=== PATIENT | female | born 1985 | race Asian ===

== ENCOUNTER 2022-09-18 13:53 | Outpatient (CLI) | payer OTHER, SELFPAY ==
--- NOTE | 2022-09-18 14:00 | CRLHL7_ITS ---
For Patients: As a result of the Century Cures Act, medical imaging exams and procedure reports are released immediately into your electronic medical record. You may view this report before your referring provider. If you have questions, please contact your health care provider. INDICATION: Dating and viability.. TECHNIQUE: Ultrasound OB pelvis transvaginal. Real-time antonio-scale imaging of the pelvis was performed. COMPARISON: None. FINDINGS: There is a single intrauterine gestational sac is identified, measuring approximately 1.7 centimeters in mean sac diameter, correlating to 6 weeks 3 days gestational age. pole is identified. The embryo`s crown rump length measurement of 0.78 cm corresponds to a gestational age of 6 weeks 5 days with a sonographic due date of 05/09/2023. There is a normal appearing yolk sac. There are no gross abnormalities noted within the embryo at this early state of development. The placenta has not yet developed. There are 2 areas of subchorionic hemorrhage identified, on the right measuring approximately 1.4 x 1.6 x 1.6 centimeters, and on the left measuring 1.7 x 1.7 x 2.3 centimeters. The ovaries are not visualized. There are no suspicious fluid collections noted in the cul-de-sac. IMPRESSION: Single viable intrauterine measuring approximately 6 weeks 5 days by crown-rump length.. No heart rate is identified, and may be related to early gestation. Recommend serial beta HCG and short interval repeat ultrasound. Dictated by Odilia Romano MD @ 09/18/2022 3:15:04 PM (Electronically Signed) ----- ADDENDUM ----- Secondary review after comparison available from September 04, 2022. On the prior examination, a gestational sac was identified with a yolk sac. This was present precisely 14 days ago. Per SRU guidelines, absence of embryonic heartbeat at greater than 11 days after a scan that showed a gestational sac with a yolk sac is diagnostic of failure. In addition, the CRL is measuring at 7mm which would also meet diagnostic criteria per guidelines. Given the subjective manner of ultrasound scanning, it was discussed with Dr. Nevaeh Mitchell that this does indeed meet guidelines for failure, but it would not be unreasonable to consider a repeat ultrasound if there is any clinical doubt. Dictated by Odilia Romano MD @ Sep 18 2022 4:03PM Signed by:?Odilia Romano MD @09/18/2022 3:15:04 PM (Electronic Signature)
== END 2022-09-18 13:54 | disposition home or self-care (01) ==
LOC: US 13:56
PROVIDERS: PCP Family Medicine; Visit Provider Physician Assistant
DX: O09.521 Supervision of elderly multigravida, first trimester (principal); Z3A.01 Less than 8 weeks gestation of pregnancy
CPT/HCPCS: 76817

== ENCOUNTER 2022-09-24 12:03 | Day surgery (SDC) | payer OTHER, SELFPAY ==
--- NOTE | 2022-09-24 12:33 | SUR.PREOP ---
Patient verbalizes understanding that interpreters are available. Patient declines certified court interpreter. States she is comfortable with Greek.
[2022-09-24 12:41] VITALS: BP 91/59; PULSE 61; RESP 16; TEMP 36.9; O2SAT 98; BMI 24.4
[2022-09-24] MEDS: SODIUM CHLORIDE 0.9 % (FLUSH) 10 ML SYRINGE IVF (12:47)
[2022-09-24] MEDS: LACTATED RINGERS 1000 ML 1,000 ML 100 ML IV (12:47)
[2022-09-24] MEDS: DOXYCYCLINE HYCLATE 200 MG in 0.9 % SODIUM CHLORIDE Mini-bag 100 ML 100 MG IVPB (12:47)
[2022-09-24 12:52] LABS: Hemoglobin* 11.8 gm/dL (12.0-16.0)
--- NOTE | 2022-09-24 13:40 | SUR.OPER ---
PATIENT QUESTIONS ANSWERED SATISFACTORILY PREOPERATIVELY. PATIENT BROUGHT TO OR #4 PER CART. Patient positioned supine on OR #4 bed for the induction. Pt. then moved into the lithotomy position for the procedure. Final approval of positioning by surgeon. STRAIGHT CATH BY Genna MONTALVO MD AT 13:29.
--- NOTE | 2022-09-24 13:48 | PM.GYNPRPL ---
Procedure Pre-op/Post-op diagnoses: Pre-Op/Post-Op Diagnoses Operation Date: 09/24/22 13:15 <No data on this case meets the specified criteria> Procedure: Procedures Operation Date: 09/24/22 13:15 Actual Procedure Side Surgeon p Suction Dilatation & Curettage Lana Lemon MD Estimated blood loss (mL): 10 Anesthesia type: MAC Complications: none Specimen: uterine contents Disposition: same day Narrative: DILATION AND CURRETAGE PREOPERATIVE DIAGNOSIS: 1. Spontaneous missed POSTOPERATIVE DIAGNOSIS: Same PROCEDURE: 1. EUA 2. Suction dilation and curettage SURGEON: Lana Lemon MD SCHOOL PROGRAM DIRECTOR: None ANESTHESIA: Monitored anesthesia care and local FINDINGS: 1. A 6 week size mobile anteverted, uterus, no adnexal masses on EUA 2. Normal external genitalia, normal appearing cervix ESTIMATED BLOOD LOSS: 10 cc URINE OUTPUT: 30 cc COMPLICATIONS: None SPECIMEN: 1. Products of conception INDICATIONS: Lie is a [age] yo , with diagnosis of missed on TVUS on 09/18/2022 IUP wtih CRL of 0.78 cm corresponding with 6w5d without heart beat. DESCRIPTION OF PROCEDURE: The patient was taken to the operating room where general anesthesia was administered. She was prepared and draped in normal sterile fashion in the dorsal lithotomy position in yellow fin/candy cane stirrups, taking care to avoid lower extremity hyperextension, hyperflexion or compression. A surgical time-out was performed with the entire operative staff per protocol. Perioperative antibiotics were given and Pneumoboots were placed and activated. EUA revealed the above findings. Bladder was drained with a red rubber. A speculum was placed in the patient's vagina and a single-tooth tenaculum was placed on the anterior lip of the cervix. The cervix was gently dilated to a 7 Urdu diameter to accommodate the 7 suction curettage. The suction curettage was then inserted under direct visualization. The uterus was then gently suction curetted and rotated to clear the uterus of products of conception. This was performed until a gritty texture was noted and the uterus was cleared of all remaining products of conception. There was minimal bleeding noted after the suction curettage was removed. The tenaculum was removed from the anterior lip of the cervix and excellent hemostasis was noted. All instruments were removed. Specimen was sent to pathology. The patient tolerated the procedure well. Sponge, lap and needle counts were correct x 2. The patient was taken to the recovery room in stable condition.
[2022-09-24 13:51] VITALS: BP 97/65; PULSE 72; RESP 14; TEMP 36.2; O2SAT 97
--- NOTE | 2022-09-24 13:54 | W.ANESCHARGE ---
Anesthesia Charges Start Date/Time Anesthesia Start Date: 09/24/22 Anesthesia Start Time: 13:09 Stop Date/Time Anesthesia Stop Date: 09/24/22 Anesthesia Stop Time: 13:55
--- NOTE | 2022-09-24 13:55 | W.ANESCHARGE ---
Anesthesia Charges Start Date/Time Anesthesia Start Date: 09/24/22 Anesthesia Start Time: 13:09 Stop Date/Time Anesthesia Stop Date: 09/24/22 Anesthesia Stop Time: 13:55
[2022-09-24 14:00] VITALS: BP 87/55; PULSE 65; RESP 14; O2SAT 99
[2022-09-24 14:15] VITALS: BP 86/64; PULSE 67; RESP 16; O2SAT 99
[2022-09-24 14:30] VITALS: BP 98/67; PULSE 65; RESP 16; O2SAT 100
== END 2022-09-24 14:57 | disposition home or self-care (01) ==
PROVIDERS: PCP Family Medicine; Visit Provider Obstetrics & Gynecology
PROC: (CPT 59820; principal; 2022-09-24 13:15)
DX: O02.1 Missed abortion (principal)
CPT/HCPCS: 59820; 00940; 01965; 36415; 85018; 86850; 86900; 86901; 88305; J1100; J1885; J2250; J2405; J2704; J3010; J7120

== ENCOUNTER 2023-02-16 10:41 | Outpatient (CLI) | payer OTHER, SELFPAY | END 2023-02-16 10:42 | disposition home or self-care (01) | LOC: NFLDREF 10:42 | PROVIDERS: PCP Family Medicine; Visit Provider Physician Assistant | DX: Z32.00 Encounter for pregnancy test, result unknown (principal) | CPT/HCPCS: 81229; 84702 ==

== ENCOUNTER 2023-02-18 14:52 | Outpatient (CLI) | payer OTHER, SELFPAY | END 2023-02-18 14:53 | disposition home or self-care (01) | LOC: NFLDREF 02-23 10:12 | PROVIDERS: PCP Family Medicine; Referring Provider Family Medicine; Visit Provider Obstetrics & Gynecology | DX: O20.9 Hemorrhage in early pregnancy, unspecified (principal) | CPT/HCPCS: 84702 ==

== ENCOUNTER 2023-03-03 13:28 | Outpatient (CLI) | payer OTHER, SELFPAY | END 2023-03-03 13:29 | disposition home or self-care (01) | PROVIDERS: PCP Family Medicine; Visit Provider Obstetrics & Gynecology | DX: N96 Recurrent pregnancy loss (principal) | CPT/HCPCS: 82232; 84146; 84443; 85610; 85613; 85730; 86147; 88262 ==

== ENCOUNTER 2023-03-30 14:54 | Outpatient (CLI) | payer OTHER, SELFPAY | END 2023-03-30 14:55 | disposition home or self-care (01) | LOC: NFLDREF 04-02 12:23 | PROVIDERS: PCP Family Medicine; Referring Provider Family Medicine; Visit Provider Obstetrics & Gynecology | DX: N96 Recurrent pregnancy loss (principal) | CPT/HCPCS: 82670; 83001; 83520 ==

== ENCOUNTER 2023-08-20 07:14 | Outpatient (CLI) | payer OTHER, SELFPAY ==
--- NOTE | 2023-08-20 07:15 | US_ITS ---
Patient: CHERYL PARDO Facility:?[facility] Patient ID:?[id number] Site Patient ID:?[id number]. Site :?[id number] Study:?US-OB Pelvis TV OB<14wks-08/20/2023 8:26:59 AM Ordering Physician:?Nitza Gale Final Report: INDICATION: Check viability and dates. IVF. TECHNIQUE: Transvaginal scanning was performed to optimally evaluate the IUP and adnexa. Ovarian blood flow was evaluated with color-flow doppler. COMPARISON: None FINDINGS: There is a living IUP with gestational age of 11 weeks 2 days by IVF and 11 weeks 4 days by today`s crown-rump length. EDC based on IVF is 03/08/2024. The embryonic heart rate is measured at 149 beats per minute. The placenta is not yet formed. No subchorionic hemorrhage is evident. The ovaries are normal in size and shape. The right ovary measures 2.6 x 1.5 x 1.3 cm and the left 3.5 x 3.4 x 2.5 cm. Ovarian blood flow is demonstrated with color-flow doppler. No adnexal mass or free fluid is apparent. IMPRESSION: 1. Living IUP with gestational age of 11 weeks 2 days by IVF and 11 weeks 4 days by today`s crown-rump length. EDC based on IVF is 03/08/2024. 2. No complication evident. Dictated by Benjamin Hartman MD @ 08/22/2023 8:03:31 AM Signed by:?Benjamin Hartman MD @08/22/2023 8:03:31 AM (Electronic Signature)
== END 2023-08-20 07:15 | disposition home or self-care (01) ==
LOC: US 07:15
PROVIDERS: PCP Family Medicine; Visit Provider Registered Nurse
DX: O09.811 Supervision of pregnancy resulting from assisted reproductive technology, first trimester (principal); Z3A.11 11 weeks gestation of pregnancy
CPT/HCPCS: 76817

== ENCOUNTER 2023-08-20 10:57 | Outpatient (CLI) | payer OTHER, SELFPAY | END 2023-08-20 10:58 | disposition home or self-care (01) | LOC: NFLDREF 08-23 05:11 | PROVIDERS: PCP Family Medicine; Referring Provider Family Medicine; Visit Provider Registered Nurse | DX: Z34.91 Encounter for supervision of normal pregnancy, unspecified, first trimester (principal); R73.03 Prediabetes | CPT/HCPCS: 86592; 86703; 86704; 86706; 86762; 86787; 86803; 86850; 86900; 86901; 87086; 87340; 87491; 87591 ==

== ENCOUNTER 2023-12-13 09:23 | Outpatient (CLI) | payer OTHER, SELFPAY ==
--- OUTSIDE RECORDS SUMMARY | 2023-12-14 18:38 | XMS_ITS | Clinical Summary ---
Author Organization [facility] Address [place], [place] [address] Care Team Providers Care Data Librarian Name Role Phone Lauren Cnode Unavailable Mervat Anthony DO Primary Care Provider [phone] Allergies No known active allergies Medications No known medications Active Problems Problem Noted Date Diagnosed Date Tuberculosis 09/04/2022 Overview: Latent Tuberculosis 09/04/2022 Overview: Latent 09/04/2022 Overview: Estimated Date of Delivery: 04/24/23 Patient's last menstrual period was 07/18/2022 (exact date). GBS- Last Tdap- 2018 Last Flu vaccine- 04/07 Glucose (GTT) result- OB Labs Recent Labs 09/04/22 1125 HGB 13.0 ABORH O Rh Positive RCBANTIBODY Negative TREPONEPALLI Negative RUBELLAIGG 17.40 Positive HBSAG Negative HEPCABY Non Reactive Comment [id number] Non Reactive No Known Allergies OB History Para Term AB Living 1 0 0 0 0 0 SAB IAB Ectopic Multiple Live Births 0 0 0 0 0 # Outcome Date GA Lbr Ezio/2nd Weight Sex Delivery Anes PTL Lv 1 Current Past Medical History: . Date ? ? History of BCG vaccination ? ? No Significant Past Medical History ? ? Tuberculosis Latent ? ? Varicella In childhood Past Surgical History: . Laterality Date ? ? NO PAST SURGERIES No data on file. #1 Problems (from 09/04/22 to present) No problems associated with this episode. MAURICIO FELDER RN ....09/04/2022 11:10 AM TB lung, latent 06/04/2022 Overview: See 03/2021 medical message - patient reports CXR normal. Has not had treatment Positive QuantiFERON-TB Gold test 03/31/2021 Overview: See 06/2020 telephone call Immunizations Name Administration Dates Next Due COVID-19 vaccine (Moderna 10 0mcg/0.5mL) PF, MDV 06/12/2021,09/19/2020,08/22/2020 COVID-19 vaccine (Moderna 50 mcg/0.5mL) 12YO+ BIVALENT PF, MDV 03/17/2022 Influenza, IIV4 02/06/2021,02/14/2019,01/14/2018 Influenza, IIV4 (=>6mos) MDV 02/07/2020,03/13/20 19 Influenza, Injectable, Mdck, Quadrivalent, W/preservative 03/24/2022,02/06/2021 Tdap 03/22/2019 Family History Medical History Relation Name Comments No Known Problems Father No Known Problems Mother Relation Name Status Comments Father Mother Social History Tobacco Use Types Packs/Day Years Used Date Smoking Tobacco: Never Smokeless Tobacco: Never Tobacco Cessation:Counseling Given: Yes Alcohol Use Standard Drinks/Week Comments No 0 (1 standard drink = 0.6 oz pur e alcohol) PHQ-2 Answer Date Recorded PHQ-2 TOTAL SCORE 0 06/04/2022 Social Connections Answer Date Recorded Frequency of Communication with Friends and Fami ly Not on file 2021 Financial Resource Strain Answer Date R ecorded Difficulty of Paying Living Expenses Not on file 2021 Difficulty of Paying Living Expenses Not on file 2021 Sex and Gender Information Value Date Recorded Sex Assigned at Not on file Gender Identity Not on file Sexual Orientation Not on file Obstetrics History Para Term AB IAB SAB Ectopic Multiple Livin g Live Births 1 Date Outcome GA Total Labor Labor/2nd/3rd Weight Sex Type Anes PTL Asha A1 A5 Name Clin Last Filed Vital Signs Vital Sign Reading Time Taken Comments Blood Pressure 93/67 08/19/2022 11:16 AM CDT Pulse 61 08/19/2022 11:16 AM CDT Temperature 36.8 ??C (98.3 ??F) 05/25/2017 9:31 AM CS T Respiratory Rate - - Oxygen Saturation 100% 08/19/2022 11:16 AM CDT Inhaled Oxygen Concentration - - Weight 55.9 kg (123 lb 4.8 oz) 09/04/2022 10:04 AM CDT Height 155 cm (5' 1.02) 09/04/2022 10:04 AM CDT Body Mass Index 23.28 09/04/2022 10:04 AM CDT Plan of Treatment Health Maintenance Due Date Last Done Comments COVID-19 vaccine series ( season) 2023 03/17/2022, 06/12/2021, 09/19/2020, Additional history exists Depression screening for age 12+ 06/05/2023 06/05/2022, 06/04/2022, 03/19/2021, Additional history exists BMI (ht and wt on same day) for age 18+ 09/05/2023 09/04/2022, 06/04/2022, 03/19/2021, Additional history exists Influenza for age 9-49 01/16/2024 2, 02/06/2021, 02/06/2021, Additional history exists Pap test for age 21-65 03/19/2026 , 03/19/2021, 01/14/2018 Tetanus booster 03/22/2029 03/22/2019 Tdap Completed 03/22/2019 HIV for age 15-65 Completed 09/04/2022, 06/05/2022 Hepatitis C screening for age 18-79 Completed 09/04/2022, 06/05/2022 Pneumococcal series for age 6-64 Aged Out No longer eligible based on patient's age to complete this topic Procedures Procedure Name Priority Date/Time Associated Diagnosis Comments LC HIV-1/O/2, 4TH GENERATION Routine 09/04/2022 11:25 AM CDT Encounter for supervision of normal first in first trimester LC HCV ANTIBODY RFX TO QUANT PCR Routine 09/04/2022 11:25 AM CDT Encounter for supervision of normal first in first trimester HPV THIN PREP Routine 03/19/2021 4:20 PM CDT Screening for cervical cancer from Last 3 Months or Most Recently Relevant to Health Maintenance Results * LC HCV ANTIBODY RFX TO QUANT PCR (09/04/2022 11:25 AM CDT) HCV Ab Non Reactive Non Reactive 09/08/2022 5:12 AM CDT [facility] ([facility]) Blood BLOOD SPECIMEN / Unknown Venipuncture / Unknown 09/04/2022 11:25 AM CDT 09/04/2022 11:27 AM CDT [facility] TEST[facility] ([facility]) - 09/08/2022 5:12 AM CDT Performed at: ??[address] [facility] [employer] [place], [place] ??[id number] Recycler: David Dumont MD, Phone: ??[phone] Karol Arellano MD LABORATORY [facility] ([facility]) [address] [place] [address], * LC HIV-1/O/2, 4TH GENERATION (09/04/2022 11:25 AM CDT) Pathologist [facility] HIV Scr 4th Gen Non Reactive Non Reactive 09/08/2022 6:[address] [facility] ([facility]) Comment: HIV Negative HIV-1/HIV-2 antibodies and HIV-1 p24 antigen were NOT detected. There is no laboratory evidence of HIV infection. Blood BLOOD SPECIMEN / Unknown Venipuncture / Unknown 09/04/2022 11:25 AM CDT 09/04/2022 11:27 AM CDT [facility] TEST[facility] ([facility]) - 09/08/2022 6:09 AM CDT Performed at: ??[address] [facility] [place] [address] [place], [place] ??[id number] Recycler: David Dumont MD, Phone: ??[phone] Karol Arellano MD LABORATORY [facility] ([facility]) [address] [place] [address] * HPV HIGH RISK (03/19/2021 4:20 PM CDT) TYPE 16 Negative Negative 03/25/2021 6:14 AM RADIUS CORNER MACHINE OPERATOR [facility] TR[facility] LABORATORY TYPE 18 Negative Negative 03/25/2021 6:14 AM RADIUS CORNER MACHINE OPERATOR [facility] TR[facility] LABOR[facility] OTHER HIGH RISK TYPES Negative Negative 03/25/2021 6:14 AM RADIUS CORNER MACHINE OPERATOR [facility] TR[facility] LABOR[facility] Other (Cervical) Non-Blood / Unknown 03/19/2021 4:20 PM CDT 03/21/2021 11:42 AM CDT Narrative [facility] - 03/25/2021 6:14 AM RADIUS CORNER MACHINE OPERATOR HPV types 16, 18, 31, 33, 35, 39, 45, 51, 52, 56, 58, 59, 66 and 68 DNA were undetectable or below the pre-set threshold. Methodology: Shahrzad Soila 4800 HPV Test Tawanna Bates MD MICROBIOLOGY [facility] [address] [place] [address], [place] from Last 3 Months or Most Recently Relevant to Health Maintenance Care Teams Data Librarian Relationship Specialty Start Date End [place] [address] PCP - General Family Practice 02/24/23 Lauren Conde [address] [place] [id number] 09/16/22
--- OUTSIDE RECORDS SUMMARY | 2023-12-14 18:38 | XMS_ITS | Clinical Summary ---
Author Organization [facility] Address [address] [place] [address] Care Team Providers Care Graduate Teaching Associate Name Role Phone None Reported, Pcp Primary Care Provider Unavail able Source Comments Patient records contain information from all sites at [facility]. For routine questions regarding patient records, call [phone] during business hours, M-F 8:00 AM - 5:00 PM Central Time. Record requests for emergency care only can be directed to [phone] at any time.[facility] Allergies Active Allergy Reactions Criticality Noted Date Comments Pollen Extracts Cough 02/19/2023 Medications Medication Sig Dispensed Refills Start Date End Date Status vit calc,iron,folic (PRENAT.VITS,DONNIE,MIN-I LAURYN-FOLIC ORAL) Take 1 tablet by mouth. 09/18/2022 Active cholecalciferol, vitamin D3, (VITAMIN D3 ORAL) Take by mouth. Active aspirin 81 mg chewable tablet Chew 81 mg daily. 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 Has not had treatment Estimated Date of Delivery Comme nts Yes 03/08/2024 Based on Embryo Transfer Encounters Date Type Department Care Team Description 11/16/2023 2:30 PM CDT Comprehensive Visit Division of Pediatric Cardiology in [place], [place] [address] [place] [address] Favian Hutton Jr., M.D. Encounter For Supervision Of Normal Unspecified Trimester (HCC) 11/16/2023 12:59 PM CDT - 11/16/2023 11:59 PM CDT Hospital Encounter Department of Cardiovascular Diseases in [place], [place] [address] [place] [phone] Ariel Jackman M.D. Encounter For Supervision Of Normal Unspecified Trimester (HCC) Discharge Disposition: Home or Self Care 10/15/2023 2:00 PM CDT Routine Department of Obstetrics and Gynecology in [place], [place] [address] [place] [phone] Ariel Jackman M.D. Encounter For Supervision Of Normal Unspecified Trimester (HCC) (Primary Dx) 10/15/2023 12:31 PM CDT - 10/15/2023 11:59 PM CDT Hospital Encounter Department of Obstetrics and Gynecology in [place], [place] [address] [place] [phone] Jag Lamb M.B.B.S. Multigravida Advanced Maternal Age Affecting Management (HCC) Discharge Disposition: Home or Self Care 09/22/2023 2:30 PM CDT Nurse Only Department of Obstetrics and Gynecology in [place], [place] [address] [place] [phone] Nelly Bourgeois R.N. 09/21/2023 Clinical Communication Department of Obstetrics and Gynecology in [place], [place] [address] [place] [phone] Prescheduling, Provider MFM Triage from Last 3 Months Family History Medical History Relation Name Comments No Known Problems Father No Known Problems Mother Relation Name Status Comments Father Alive Maternal Grandfather Maternal Grandmother Mother Alive Paternal Grandfather Paternal Grandmother Social History Tobacco Use Types Packs/Day Years Used Date Smoking Tobacco: Never Smokeless Tobacco: Never Tobacco Cessation:Counseling Given: Not Answered Alcohol Use Standard Drinks/Week Comments Not Currently 0 (1 standard drink = 0.6 oz pur e alcohol) Overall Financial Resource Strain (CARDIA) Answe r Date Recorded How hard is it for you to pa y for the very basics like food, housing, medical care, and heating? Not very hard 02/17/2023 PHQ-2 Answer Date Recorded PHQ-2 Score 1 02/17/2023 Exercise Vital Sign Answer Date Recorde d On average, how many days pe r week do you engage in moderate to strenuous exercise (like a brisk walk)? 7 days 02/17/2023 On average, how many minutes do you engage in exercise at this level? 30 min 02/17/2023 Hunger Vital Sign Answer Date Recorded Within the past 12 months, y ou worried that your food would run out before you got the money to buy more. Never true 02/18/20 Within the past 12 months, t he food you bought just didn't last and you didn't have money to get more. Never true 02/17/2023 PRAPARE - Transportation Answer Date Re corded In the past 12 months, has l ack of transportation kept you from medical appointments or from getting medications? Yes 08/2022 In the past 12 months, has l ack of transportation kept you from meetings, work, or from getting things needed for daily living? Yes 02/17/2023 Depression Answer Date Recor ded PHQ-9 Total Score (max 27) 4 02/17 Nutrition Answer Date Recorded On average, how many serving s of fruits and vegetables do you eat per day (serving size is equal to 1 cup or approximately the size of a tennis ball)? 5 or more 02/17/2023 Dental Answer Date Recorded Dental: Regular Dentist No 02/18/20 Employment Answer Date Recorded Employment status Employed and actively working without restrictions 02/17/2023 Housing Stability Answer Date Recorded What is your living situation today? I have a [facility] place to live 02/17/2023 Education Answer Date Recorded What is the highest level of school you have completed or the highest degree you have received? Doctorate 09/22/2023 Estimated Date of Delivery Comme nts Yes 03/08/2024 Based on Embryo Transfer Sex and Gender Information Value Date Recorded Sex Assigned at Female 02/17/2023 4:06 PM CDT Gender Identity Female 02/17/2023 4:06 PM CDT Sexual Orientation Straight 02/17/2023 4: 06 PM CDT Last Filed Vital Signs Vital Sign Reading Time Taken Comments Blood Pressure 90/60 10/15/2023 2:43 PM CDT Pulse 75 10/15/2023 2:43 PM CDT Temperature 36.6 ??C (97.9 ??F) 06/16/2023 8:56 AM CS T Respiratory Rate 15 06/16/2023 10:22 AM HEAVY EQUIPMENT TECHNICIAN Oxygen Saturation 97% 10/15/2023 2:43 PM CDT Inhaled Oxygen Concentration - - Weight 58.2 kg (128 lb 4.9 oz) 07/08/2023 2:27 P M HEAVY EQUIPMENT TECHNICIAN Height 150 cm (4' 11.06) 07/08/2023 2:27 PM HEAVY EQUIPMENT TECHNICIAN Body Mass Index 25.87 07/08/2023 2:27 PM HEAVY EQUIPMENT TECHNICIAN Plan of Treatment Upcoming Encounters Date Type Department Care Team (Latest Contact Info) Description 12/24/2023 11:15 AM CDT Appointment Department of Obstetrics and Gynecology in [place], [place] [address] [place] [phone] Ariel Jackman M.D. [address] [place] [phone] Discharge Disposition: Home or Self Care 12/24/2023 1:00 PM CDT Routine Department of Obstetrics and Gynecology in [place], [place] [address] [place] [phone] Tiarra Panda M.D., Ph.D. [address] [place] [phone] Health Maintenance Due Date Last Done Comments Cervical Cancer Screening 1985 HIV Screening 1985 Hepatitis B Vaccines (1 of 3 - 19+ 3-dose series) 2004 Depression Screening (Annual PHQ-2) 05/17/2023 RSV vaccine - (32-36 weeks) or 60+ years (1 - Risk 1-dose series) 01/16/2024 Influenza Vaccine (#1) 2024 , 03/24/2022, 02/06/2021, Additional history exists Lipid (Cholesterol) Screening 06/05/2027 06/05/2022, 03/19/2021 DTaP,Tdap,and Td Vaccines (2 - Td or Tdap) 03/22/2029 03/22/2019 Hepatitis C Screening Completed 09/04/2022 COVID-19 Vaccine Completed 03/02/2023, 05/2021, 06/12/2021, Additional history exists HPV Vaccines Aged Out No longer eligi ble based on patient's age to complete this topic Pneumococcal vaccine (0-64 years) Aged Out No longer eligible based on patient's age to complete this topic Procedures Procedure Name Priority Date/Time Associated Diagnosis Comments OSEGUERA ECHO 2D WITH COLOR AND DOPPLER Routine 11/16/2023 2:04 PM CDT Encounter For Supervision Of Normal Unspecified Trimester (HCC) US OB ADVANCED LEVEL OSEGUERA AND TRANSVAGINAL RAD - Routine (most inpatients and all outpatients) 10/15/2023 2:46 PM CDT Multigravida Advanced Maternal Age Affecting Management (HCC) HCV AB SCRN W/REFLEX TO HCV PCR, S Routine 09/04/2022 from Last 3 Months or Most Recently Relevant to Health Maintenance Results * OSEGUERA ECHO 2D WITH COLOR AND DOPPLER (11/16/2023 2:04 PM CDT) Ejection Fraction [facility] Anatomical Region Laterality Modality Echocardiography 11/16/2023 1:12 PM CDT Impressions 11/16/2023 2:05 PM CDT lie: variable. 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 Normal great artery relationships. For the complete report, see the Order-Level Documents. Narrative 11/16/2023 2:05 PM CDT For the complete report, see the Order-Level Documents. Final Impressions 1. echocardiogram performed due to in vitro fertilization. 2. Estimated date of delivery 03/08/2024. ??Gestational age 23 weeks , 6 days. 3. Oseguera . 4. Normal cardiac anatomy. 5. Normal cardiac dimensions. 6. Normal biventricular function. 7. Normal Doppler velocities. 8. Normal aortic arch. 9. Normal ductal arch. 10. Normal patency of the foramen ovale. 11. echocardiogram reveals normal sinus rhythm at a heart rate of 158 contr/min. 12. Normal umbilical cord Doppler velocities and profile. Three vessel cord. 13. No pericardial effusion. No hydrops. Procedure Note Favian Hutton Jr., M.D. - 11/16/2023 For the complete report, see the Order-Level Documents. Final Impressions 1. echocardiogram performed due to in vitro fertilization. 2. Estimated date of delivery 03/08/2024. Gestational age 23 weeks , 6days. 3. Oseguera . 4. Normal cardiac anatomy. 5. Normal cardiac dimensions. 6. Normal biventricular function. 7. Normal Doppler velocities. 8. Normal aortic arch. 9. Normal ductal arch. 10. Normal patency of the foramen ovale. 11. echocardiogram reveals normal sinus rhythm at a heart rate of158 contr/min. 12. Normal umbilical cord Doppler velocities and profile. Three vesselcord. 13. No pericardial effusion. No hydrops. Findings lie: variable. echocardiogram reveals situs solitus of theatria and viscera with levocardia. Normal great arteryrelationships. For the complete report, see the Order-Level Documents. Ariel Jackman M.D. CV ECHO PROCEDURES * US OB Advanced Level Oseguera and Transvaginal (10/15/2023 2:46 PM CDT) Anatomical Region Laterality Modality Body, Ultrasound OB RST LOS, Ultrasound ARZ LOS N/A Ultrasound Narrative 10/15/2023 2:41 PM CDT CHERYL DAWKINS OB Exam, 10/15/2023 EXAM INFORMATION Patient Name: ??CHERYL DAWKINS : ??1985 Age: ??38 yrs Sex: ??Female Ref Phys: ??JAG LAMB Exam Date: 10/15/2023 Procedure: US OB ADVANCED LEVEL OSEGUERA AND TRANSVAGINAL Plurality: 1 OBHx: [G:(3)] ?F Trm:() Pre:() C-Sec:() Ab-I:() Ab-S:() Ect:() Multi:() Asha:() INDICATIONS FOR SONOGRAPHY Advanced Level Anatomy IMPRESSION A transabdominal detailed ultrasound examination of the fetus and transvaginal scan were ordered and performed secondary to anomaly screening, AMA. Findings: Oseguera intrauterine with good activity. Size is consistent with dates. Marginal cord insertion There are no abnormalities or sonographic soft markers of aneuploidy visualized. Normal fluid The maternal uterus and adnexae were visualized and normal. Transvaginal ultrasound performed to evaluate placentation. There is an anterior placenta previa. Recommend reassessment of placentation and growth at 28-32 weeks. MEASUREMENTS ??katie ??wks [+/-] (Range) % ?? BPD: 4.78 cm ?? 20w3d ??[+/-1.73] ??(3.80 - 4.98) 90% FL: ??3.19 cm ?? 19w6d ??[+/-1.80] ??(2.47 - 3.65) 67% HC: ??17.18 cm ?? 19w5d ??[+/-1.48] ??(14.81 - 18.73) 66% AC: ??14.33 cm ?? 19w5d ??[+/-2.06] ??(11.41 - 16.66) 59% HL: ??3.16 cm ?? 20w2d ? (2.36 - 3.36) 77% TCD: 2.03 cm ?? 20w1d ??[+/-1.80] ??(1.80 - 2.20) 67% NF: ??3.87 mm ? Cisterna Magna: 0.6 cm ? Lateral Ventricle: 0.8 cm ? RATIOS ??(Range) % ?? HC/AC: 1.20 ?(1.09 - 1.26) 61% ?? FL/BPD: 0.67 ? FL/AC: 0.22 ? LONG BONES SURVEY ??cm ??wks [+/-] (Range) % ?? Humerus: 3.16 cm ?? 20w2d ? (2.36 - 3.36) 77% Ulna: ?? 2.47 cm ? Radius: 2.44 cm ? Femur: 3.19 cm ?? 19w6d ??[+/-1.80] ??(2.47 - 3.65) 67% Tibia: 2.47 cm ? Fibula: 2.52 cm ? COMPUTATIONS GA: ?? 19w2d [+/-1.40] Method: ??HERBERTH HERBERTH: ??03/08/2024 Sono GA: ??19w5d [+/-1.40] Method: ?? BPD, HC, AC, FL Weight: ??339 gms. ??0 lb 11 oz. ??92% Method: ??BPD, HC, AC, FL OBSERVATIONS Amniotic Fluid Fluid Volume: ??Normal Placenta: ??Placenta is Anterior. ??There is a complete anterior placenta previa. Presentation: ?Variable Size: ?Large for dates Growth: ??Large for dates. FHR: ??157 bpm Sex: ??Male ANATOMY Normal: Sag and Trans Cervical spine, Sag and Trans Thoracic spine, Sag and Trans Lumbar spine, Sag and Trans Sacral spine, Cerebellum, Vermis, Cisterna magna, Cerebral ventricle, Choroid plexus, Nuchal thickness, CSP, Midline falx, Palate, Maxilla, Mandible, Tongue, 4 chamber heart, Interventricular septum, Situs, RVOT, LVOT, 3VV, 3VT, Aortic arch, Ductal arch, SVC/IVC, Pulmonary veins, Chest/Heart/lungs, Diaphragm, Anterior abdominal wall, Abdominal cord insertion, 3 vessel cord, Stomach, Kidneys (coronal and trans), Renal arteries, Bladder, Face, Upper lip/nose, Profile/Nasal Bone, Orbits/lens, Upper extremities, Lower extremities, Hands, Feet Abnormal: Placental cord insert Preliminary Read by Dixie Maxwell on 10/15/2023 2:27:48 PM. Paper Steamer: ??Dixie Maxwell Thank You For This Referral Procedure Note Dulce Cadena M.D. - 10/15/2023 CHERYL DAWKINS OB Exam, 10/15/2023 EXAM INFORMATION Patient Name: CHERYL DAWKINS : 1985 Age: 38 yrs Sex: Female Ref Phys: JAG LAMB Exam Date: 10/15/2023 Procedure: US OB ADVANCED LEVEL OSEGUERA AND TRANSVAGINAL Plurality: 1 OBHx: [G:(3)] F Trm:() Pre:() C-Sec:() Ab-I:() Ab-S:() Ect:() Multi:() Asha:() INDICATIONS FOR SONOGRAPHY Advanced Level Anatomy IMPRESSION A transabdominal detailed ultrasound examination of the fetus andtransvaginal scan were ordered and performed secondary to anomalyscreening, AMA. Findings: Oseguera intrauterine with good activity. Size is consistent with dates. Marginal cord insertion There are no abnormalities or sonographic soft markers of aneuploidyvisualized. Normal fluid The maternal uterus and adnexae were visualized and normal. Transvaginal ultrasound performed to evaluate placentation. There is ananterior placenta previa. Recommend reassessment of placentation and growth at 28-32 weeks. MEASUREMENTS katie wks [+/-] (Range) % BPD: 4.78 cm 20w3d [+/-1.73] (3.80 - 4.98) 90% FL: 3.19 cm 19w6d [+/-1.80] (2.47 - 3.65) 67% HC: 17.18 cm 19w5d [+/-1.48] (14.81 - 18.73) 66% AC: 14.33 cm 19w5d [+/-2.06] (11.41 - 16.66) 59% HL: 3.16 cm 20w2d (2.36 - 3.36) 77% TCD: 2.03 cm 20w1d [+/-1.80] (1.80 - 2.20) 67% NF: 3.87 mm Cisterna Magna: 0.6 cm Lateral Ventricle: 0.8 cm RATIOS (Range) % HC/AC: 1.20 (1.09 - 1.26) 61% FL/BPD: 0.67 FL/AC: 0.22 LONG BONES SURVEY cm wks [+/-] (Range) % Humerus: 3.16 cm 20w2d (2.36 - 3.36) 77% Ulna: 2.47 cm Radius: 2.44 cm Femur: 3.19 cm 19w6d [+/-1.80] (2.47 - 3.65) 67% Tibia: 2.47 cm Fibula: 2.52 cm COMPUTATIONS GA: 19w2d [+/-1.40] Method: HERBERTH HERBERTH: 03/08/2024 Sono GA: 19w5d [+/-1.40] Method: BPD, HC, AC, FL Weight: 339 gms. 0 lb 11 oz. 92% Method: BPD, HC, AC, FL OBSERVATIONS Amniotic Fluid Fluid Volume: Normal Placenta: Placenta is Anterior. There is a complete anterior placentaprevia. Presentation: Variable Size: Large for dates Growth: Large for dates. FHR: 157 bpm Sex: Male ANATOMY Normal: Sag and Trans Cervical spine, Sag and Trans Thoracic spine, Sagand Trans Lumbar spine, Sag and Trans Sacral spine, Cerebellum, Vermis,Cisterna magna, Cerebral ventricle, Choroid plexus, Nuchal thickness, CSP,Midline falx, Palate, Maxilla, Mandible, Tongue, 4 chamber heart, Interventricular septum, Situs, RVOT,LVOT, 3VV, 3VT, Aortic arch, Ductal arch, SVC/IVC, Pulmonary veins,Chest/Heart/lungs, Diaphragm, Anterior abdominal wall, Abdominal cordinsertion, 3 vessel cord, Stomach, Kidneys (coronal and trans), Renal arteries, Bladder, Face, Upper lip/nose,Profile/Nasal Bone, Orbits/lens, Upper extremities, Lower extremities,Hands, Feet Abnormal: Placental cord insert Preliminary Read by Dixie Maxwell on 10/15/2023 2:27:48 PM. Paper Steamer: Dixie Maxwell Thank You For This Referral Jag Velez IMG OB US PROCEDUR ES * HCV Ab Scrn w/Reflex to HCV PCR, Serum (09/04/2022) EXT HCV Ab, S Negative Negative, None detected EXTERNAL INTERFACED LAB Blood (Blood, Venous) 09/04/2022 Ordering Provider External [facility] OBIOLOGY - BLOOD ORDERABLES EXTERNAL INTERFACED LAB [address] [place] [address] from Last 3 Months or Most Recently Relevant to Health Maintenance Advance Directives For more information, please contact: [phone] * Full Code (Latest Code Status on File) Date Activated Date Inactivated Comments 06/16/2023 10:32 AM 06/16/2023 12:59 PM Question Answer Comments Full Code: Discussed * Full Code Date Activated Date Inactivated Comments 06/16/2023 8:09 AM 06/16/2023 10:32 AM Question Answer Comments Full Code: Discussed Care Teams Graduate Teaching Associate Relationship Specialty Start Date End Date None Reported, Pcp PCP - General Family Medicine 06/16/23
--- OUTSIDE RECORDS SUMMARY | 2023-12-14 18:39 | XMS_ITS | Encounter Summary ---
Author Organization [facility] Address [address] [place] [phone] Care Team Providers Care Software Design Manager Name Role Phone None Reported, Pcp Primary Care Provider Unavail able Encounter Details Date Type Department Care Team (Latest Contact Info) Description 10/15/2023 12:31 PM CDT - 10/15/2023 11:59 PM CDT Hospital Encounter Department of Obstetrics and Gynecology in [place], [place] [address] [place] [phone] Jag Lamb M.B.B.S. [address] [place] [phone] Multigravida Advanced Maternal Age Affecting Management (HCC) Discharge Disposition: Home or Self Care Social History Tobacco Use Types Packs/Day Years Used Date Smoking Tobacco: Never Smokeless Tobacco: Never Alcohol Use Standard Drinks/Week Comments Not Currently [...] the money to buy more. Never true 10/04/20 23 Within the past 12 months, t he [...] your living situation today? I have a [facility] place to live 02/17/2023 Education Answer [...] Orientation Straight 02/17/2023 4: 06 PM CDT documented as of this encounter Medications at Time of Discharge Medication Sig Dispensed Refills Start Date End Date aspirin 81 mg chewable tablet Chew 81 mg daily. 09/20/2023 cholecalciferol, vitamin D3, (VITAMIN D3 ORAL) Take by mouth. vit calc,iron,folic (PRENAT.VITS,DONNIE,MIN-IRON- FOLIC ORAL) Take 1 tablet by mouth. 09/18/2022 documented as of this encounter Plan of Treatment Upcoming Encounters Date Type Department Care Team (Latest Contact Info) Description 12/24/2023 11:15 AM CDT Appointment Department of Obstetrics and Gynecology in [place], [place] [address] [place] [phone] Ariel Jackman M.D. [address] [place] [phone] Discharge Disposition: Home or Self Care 12/24/2023 1:00 PM CDT Routine Department of Obstetrics and Gynecology in [place], [place] [address] [place] [phone] Tiarra Panda M.D., Ph.D. [address] [place] [phone] documented as of this encounter Procedures Procedure Name Priority Date/Time Associated Diagnosis Comments US OB ADVANCED LEVEL OSEGUERA AND TRANSVAGINAL RAD - Routine (most inpatients and all outpatients) 10/15/2023 2:46 PM CDT Multigravida Advanced Maternal Age Affecting Management (HCC) documented in this encounter Results * US OB Advanced Level Oseguera and Transvaginal (10/15/2023 2:46 PM CDT) Anatomical Region Laterality Modality Body, Ultrasound OB RST LOS, Ultrasound ARZ LOS N/A Ultrasound Narrative 10/15/2023 2:41 PM CDT CHERYL DAWKINS OB Exam, 10/15/2023 EXAM INFORMATION Patient Name: ??CHAR CHERYL : ??1985 Age: ??38 yrs Sex: ??Female [...] by Dixie Maxwell on 10/15/2023 2:27:48 PM. Outreach Professional: ??Dixie Maxwell Thank You For This Referral [...] by Dixie Maxwell on 10/15/2023 2:27:48 PM. Outreach Professional: Dixie Maxwell Thank You For This Referral Jag Velez IMSasha OB US PROCEDUR ES documented in this encounter Visit Diagnoses Diagnosis Multigravida Advanced Maternal Age Affecting Management (HCC) documented in this encounter Additional Health Concerns Assessment Noted Time PHQ-9 Depression Total Score: 4 02/18/20 23 4:19 PM CDT documented as of this encounter Care Teams Software Design Manager Relationship Specialty Start Date End Date None Reported, Pcp PCP - General Family Medicine 06/16/23 documented as of this encounter
--- OUTSIDE RECORDS SUMMARY | 2023-12-14 18:39 | XMS_ITS ---
Author Organization [facility] Address [address] [place] [address] Care Team Providers Care Trench Pipe Layer Helper Name Role Phone Unavailable Unavailable Unavailable Surgery Details Not on file Complications Check Surgery Details section. Procedure Estimated Blood Loss Check Surgery Details section. Procedure Findings Check Surgery Details section. Procedure Specimens Taken Check Surgery Details section.
--- OUTSIDE RECORDS SUMMARY | 2023-12-14 18:39 | XMS_ITS | Encounter Summary ---
Author Organization [facility] Address [address] [place] [address] Care Team Providers Care Ekg Tech Name Role Phone None Reported, Pcp Primary Care Provider Unavail able Encounter Details Date Type Department Care Team (Late st Contact Info) Description 09/22/2023 2:30 PM CDT Nurse Only Department of Obstetrics and Gynecology in [place], [place] [address] [place] [phone] Nelly Bourgeois R.N. [address] [place] [phone] Social History Tobacco Use Types Packs/Day Years [...] money to buy more. Never true 02/18/20 23 Within the past 12 months, t [...] your living situation today? I have a [facility] place to live 02/17/2023 Education Answer [...] PM CDT documented as of this encounter Progress Notes * Nelly Bourgeois, RKelleyN. - 09/22/2023 2:30 PM CDT A chart review was completed with Justin Dawkins. She is being referred by Dr. Lemon in [place] for an advanced level ultrasound due to maternal age. Using the MFM Indication to be Seen guideline, the timeframe we would like her to be seen is between 10/06 and 10/21. Justin would like to have an appointment on 10/06 or 10/07 so she can keep her local appointment on 10/11 to discuss the MFM consult. MFM pre-visit orders: Additional appointments were ordered as follows: Advanced Level US. These recommendations were discussed with the patient. Justin Dawkins was informed that the [facility] team will be reaching out to schedule her appointments in the near future. She verbalized understanding and denied any further questions. Nelly Bourgeois R.N. documented in this encounter Plan of Treatment Upcoming Encounters Date Type Department Care Team (Latest Contact Info) Description 12/24/2023 11:15 AM CDT Appointment Department of Obstetrics and Gynecology in [place], [place] [address] [place] [phone] Ariel Jackman M.D. [address] [place] [phone] Discharge Disposition: Home or Self Care 12/24/2023 1:00 PM CDT Routine Department of Obstetrics and Gynecology in [place], [place] [address] [place] [phone] Tiarra Panda M.D., Ph.D. [address] [place] [phone] documented as of this encounter Visit Diagnoses Diagnosis Multigravida Advanced Maternal Age Affecting Management (HCC)- Primary documented in this encounter Additional Health Concerns Assessment Noted Time PHQ-9 Depression Total Score: 4 02/18/20 23 4:19 PM CDT documented as of this encounter Care Teams Ekg Tech Relationship Specialty Start Date End Date None Reported, Pcp PCP - General Family Medicine 06/16/23 documented as of this encounter
--- OUTSIDE RECORDS SUMMARY | 2023-12-14 18:39 | XMS_ITS | Encounter Summary ---
Author Organization [facility] Address [address] [place] [address] Care Team Providers Care Mortar Man Name Role Phone None Reported, Pcp Primary Care Provider Unavail able Reason for Visit * Outpatient (Routine) - Closed Specialty Diagnoses / Procedures Referred By Babs de la vega Referred To Contact Pediatric Cardiology Diagnoses Encounter For Supervision Of Normal Unspecified Trimester (HCC) Ariel Jackman M.D. [address] [place] [phone] [facility] Referral ID Status Reason Start Date Expiration Date Visits Re quested Visits Authorized [id number] Closed 10/15/2023 04/15/2025 1 1 Encounter Details Date Type Department Care Team (Latest Contact Info) Description 11/16/2023 2:30 PM CDT Comprehensive Visit Division of Pediatric Cardiology in [place], [place] [address] [place] [phone] Favian Hutton Jr., M.D. [address] [place] [phone] Encounter For Supervision Of Normal Unspecified Trimester (HCC) Social History Tobacco Use Types Packs/Day Years [...] your living situation today? I have a [facility] place to live 02/17/2023 Education Answer [...] as of this encounter Progress Notes * Favian Hutton Jr., M.D. - 11/16/2023 2:30 PM CDT I reviewed the results of the echocardiogram with mom. The study was completely normal. A repeat study is not indicated. documented in this encounter Plan of Treatment Upcoming Encounters Date Type Department Care Team (Latest Contact Info) Description 12/24/2023 11:15 AM CDT Appointment Department of Obstetrics and Gynecology in [place], [place] [address] [place] [address] Ariel Jackman M.D. [address] [place] [phone] Discharge Disposition: Home or Self Care 12/24/2023 1:00 PM CDT Routine Department of Obstetrics and Gynecology in [place], [place] [address] [place] [address] Tiarra Panda M.D., Ph.D. [address] [place] [phone] documented as of this encounter Visit Diagnoses Diagnosis Encounter For Supervision Of Normal Unspecified Trimester (HCC) documented in this encounter Additional Health Concerns Assessment Noted Time PHQ-9 Depression Total Score: 4 02/18/20 23 4:19 PM CDT documented as of this encounter Care Teams Mortar Man Relationship Specialty Start Date End Date None Reported, Pcp PCP - General Family Medicine 06/16/23 documented as of this encounter
--- OUTSIDE RECORDS SUMMARY | 2023-12-14 18:39 | XMS_ITS | Encounter Summary ---
Author Organization [facility] Address [address] [place] [address] Care Team Providers Care Inspector Materials And Processes Name Role Phone None Reported, Pcp Primary Care Provider Unavail able Reason for Visit * Reason Onset Date Comments MFM Triage 09/21/2023 Encounter Details Date Type Department Care Team (Late st Contact Info) Description 09/21/2023 Clinical Communication Department of Obstetrics and Gynecology in [place], [place] [address] [place] [address] Prescheduling, Provider MFM Triage Social History Tobacco Use Types Packs/Day Years Used Date Smoking Tobacco: Never Smokeless Tobacco: Never Alcohol Use Standard Drinks/Week Comments Never 0 (1 standard drink = 0.6 oz [...] your living situation today? I have a [facility] place to live 02/17/2023 Estimated Date of Delivery Comme nts Yes 03/08/2024 Based on Embryo Transfer Sex and Gender Information Value Date Recorded Sex Assigned at Female 02/17/2023 4:06 PM CDT Gender Identity Female 02/17/2023 4:06 PM CDT Sexual Orientation Straight 02/17/2023 4: 06 PM CDT documented as of this encounter Plan of Treatment Upcoming Encounters Date Type Department Care Team (Latest Contact Info) Description 12/24/2023 11:15 AM CDT Appointment Department of Obstetrics and Gynecology in [place], [place] [address] [place] [phone] Ariel Jackman M.D. [address] [place] [phone] Discharge Disposition: Home or Self Care 12/24/2023 1:00 PM CDT Routine Department of Obstetrics and Gynecology in [place], [place] [address] [place] [phone] Tiarra Panda M.D., Ph.D. [address] [place] [phone] documented as of this encounter Visit Diagnoses Not on filedocumented in this encounter Additional Health Concerns Assessment Noted Time PHQ-9 Depression Total Score: 4 10/04/20 23 4:19 PM CDT documented as of this encounter Care Teams Inspector Materials And Processes Relationship Specialty Start Date End Date None Reported, Pcp PCP - General Family Medicine 06/16/23 documented as of this encounter
--- OUTSIDE RECORDS SUMMARY | 2023-12-14 18:39 | XMS_ITS | Encounter Summary ---
Author Organization [facility] Address [address] [place] [address] Care Team Providers Care Control Electrician Name Role Phone None Reported, Pcp Primary Care Provider Unavail able Reason for Referral * Outpatient (Routine) - Closed Specialty Diagnoses / Procedures Referred By Babs de la vega Referred To Contact Diagnoses Encounter For Supervision Of Normal Unspecified Trimester (HCC) Procedures Echo Ariel Jackman M.D. [address] [place] [phone] Referral ID Status Reason Start Date Expiration Date Visits Re quested Visits Authorized [id number] Closed 10/15/2023 10/14/2024 1 1 Reason for Visit * Outpatient (Routine) - Closed Specialty Diagnoses / Procedures Referred By Babs de la vega Referred To Contact Diagnoses Encounter For Supervision Of Normal Unspecified Trimester (HCC) Procedures Echo Ariel Jackman M.D. 200 [place] [address] Referral ID Status Reason Start Date Expiration Date Visits Re quested Visits Authorized [id number] Closed 10/15/2023 10/14/2024 1 1 Encounter Details Date Type Department Care Team (Latest Contact Info) Description 11/16/2023 12:59 PM CDT - 11/16/2023 11:59 PM CDT Hospital Encounter Department of Cardiovascular Diseases in [place], [place] [address] [place] [phone] Ariel Jackman M.D. [address] [place] [phone] Encounter For Supervision Of Normal Unspecified [...] your living situation today? I have a [facility] place to live 02/17/2023 Education Answer [...] Appointment Department of Obstetrics and Gynecology in [place], [place] [address] [place] [phone] Ariel Jackman M.D. [address] [place] [phone] Discharge Disposition: Home or Self Care 12/24/2023 1:00 PM CDT Routine Department of Obstetrics and Gynecology in [place], [place] [address] [place] [address] Tiarra Panda M.D., Ph.D. [address] [place] [phone] documented as of this encounter Procedures Procedure Name Priority Date/Time Associated Diagnosis Comments OSEGUERA ECHO 2D WITH COLOR AND DOPPLER Routine 11/16/2023 2:04 PM CDT Encounter For Supervision Of Normal Unspecified Trimester (HCC) documented in this encounter Results * OSEGUERA ECHO 2D WITH COLOR AND DOPPLER (11/16/2023 2:04 PM CDT) Ejection Fraction [facility] Anatomical Region Laterality Modality Echocardiography 11/16/2023 [...] Documents. Ariel Jackman M.D. CV ECHO PROCEDURES documented in this encounter Visit Diagnoses Diagnosis Encounter For Supervision Of Normal Unspecified Trimester (HCC) documented in this encounter Additional Health Concerns Assessment Noted Time PHQ-9 Depression Total Score: 4 02/18/20 23 4:19 PM CDT documented as of this encounter Care Teams Control Electrician Relationship Specialty Start Date End Date None Reported, Pcp PCP - General Family Medicine 06/16/23 documented as of this encounter
--- OUTSIDE RECORDS SUMMARY | 2023-12-14 18:39 | XMS_ITS | Encounter Summary ---
Author Organization [facility] Address [address] [place] [address] Care Team Providers Care Supervisor Heavy Equipment Name Role Phone None Reported, Pcp Primary Care Provider Unavail able Reason for Referral * Outpatient (Routine) - Authorized Specialty Diagnoses / Procedures Referred By Babs de la vega Referred To Contact Obstetrics and Gynecology Ariel Jackman M.D. 200 [place] [phone] [facility] Referral ID Status Reason Start Date Expiration Date V isits Requested Visits Authorized [id number] Authorized 10/15/2023 04/15/2025 1 1 Scheduling Instructions Augustina * Outpatient (Routine) - Closed Specialty Diagnoses / Procedures Referred By Babs de la vega Referred To Contact Diagnoses Encounter For Supervision Of Normal Unspecified Trimester (HCC) Procedures Echo Ariel Jackman M.D. 200 [place] [address] Referral ID Status Reason Start Date Expiration Date Visits Re quested Visits Authorized [id number] Closed 10/15/2023 10/14/2024 1 1 * Outpatient (Routine) - Closed Specialty Diagnoses / Procedures Referred By Babs de la vega Referred To Contact Pediatric Cardiology Diagnoses Encounter For Supervision Of Normal Unspecified Trimester (HCC) Ariel Jackman M.D. [address] [place] [phone] [facility] Referral ID Status Reason Start Date Expiration Date Visits Re quested Visits Authorized [id number] Closed 10/15/2023 04/15/2025 1 1 Reason for Visit * Appointment Request (Routine) - Authorized Specialty Diagnoses / Procedures Referred By Contac t Referred To Contact Maternal and Medicine Diagnoses Tuberculosis Latent PreDiabetes Recurrent Loss First Trimester (HCC) Normal Not First (HCC) Lana Lemon M.D. [address] [place] [address] Referral ID Status Reason Start Date Expiration Date V isits Requested Visits Authorized [id number] Authorized 09/21/2023 09/20/2024 2 2 Encounter Details Date Type Department Care Team (Latest Contact Info) Description 10/15/2023 2:00 PM CDT Routine Department of Obstetrics and Gynecology in [place], [place] [address] [place] [address] Ariel Jackman M.D. [address] [place] [address] Encounter For Supervision Of Normal Unspecified Trimester (HCC) (Primary Dx) Social History Tobacco Use Types Packs/Day Years [...] your living situation today? I have a [facility] place to live 02/17/2023 Education Answer Date [...] PM CDT documented as of this encounter Last Filed Vital Signs Vital Sign Reading Time Taken Comments Blood Pressure 90/60 10/15/2023 2:43 PM CDT Pulse 75 10/15/2023 2:43 PM CDT Temperature - - Respiratory Rate - - Oxygen Saturation 97% 10/15/2023 2:43 PM CDT Inhaled Oxygen Concentration - - Weight - - Height - - Body Mass Index - - documented in this encounter Consult Notes * Ariel Jackman M.D. - 10/15/2023 2:00 PM CDT #1 Intrauterine at 19 2/7 weeks #2 IVF conception #3 Advanced maternal age #4 Placenta previa Very pleasant 38 y/o with HERBERTH 03/08/24 established by IVF-ET consistent with 8 week scan EGA 19 2/7 weeks who is referred for detailed ultrasound. The current has been uncomplicated to date. Noninvasive screening has returned low-risk of aneuploidy. MEDICAL HISTORY: None SURGICAL HISTORY: D&C following miscarriage GYNECOLOGIC HISTORY: No abnormal pap smears or STIs MEDICATIONS: vitamin Vitamin D ASA 81mg ALLERGIES: NKDA SOCIAL: No tobacco or ethanol use; no previous blood transfusions. There is no family history of congenital anomalies or genetic syndromes. 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 Ultrasound today demonstrates a crawford intrauterine . No structural anomalies or aneuploidy markers are visualized; all individual biometric parameters are consistent with gestational age. The placenta is located anterior with previa present; cervix length 3.6cm. Incidental note is made of a marginal umbilical cord insertion site. Amniotic fluid volume normal. With regards to potential obstetrical complications: Inherent risks of advanced maternal age include aneuploidy, miscarriage, congenital anomalies, growth restriction (and possibly intrauterine demise), gestational diabetes, preeclampsia, delivery, section, and hemorrhage. However, excepting age-derived incidence of aneuploidy, individual risk of developing any specific complication(s) is not predictable. Anticipated resolution rate of placenta previa is 90%. In addition to routine care: Antepartum: echocardiography at 22-24 weeks (in [place]). Repeat obstetrical ultrasound at 28-32 weeks to evaluate placental location (in [place]), then every 4 weeks thereafter to monitor growth. Initiate weekly surveillance at 36 weeks. Consider delivery if the achieves 39 0/7-39 6/7 weeks gestation. My contact information was provided should any further questions arise, and return appointments scheduled today. Ariel Jackman M.D. documented in this encounter Plan of Treatment Upcoming Encounters Date Type Department Care Team (Latest Contact Info) Description 12/24/2023 11:15 AM CDT Appointment Department of Obstetrics and Gynecology in [place], [place] [address] [place] [address] Ariel Jackman M.D. [address] [place] [address] Discharge Disposition: Home or Self Care 12/24/2023 1:00 PM CDT Routine Department of Obstetrics and Gynecology in [place], [place] [address] [place] [address] Tiarra Panda M.D., Ph.D. [address] [place] [address] Scheduled Orders Name Type Priority Associated Diagnoses Orde r Schedule US OB Follow-up and or Growth [facility] RAD - Routine (most inpatients and all outpatients) Encounter For Supervision Of Normal Unspecified Trimester (HCC) Expected: 12/24/2023, Expires: 01/14/2025 Scheduled Referrals Name Type Priority Associated Diagnoses Orde r Schedule Pediatric Cardiology - clinic consult (clinic) Outpatient Referral Routine Encounter For Supervision Of Normal Unspecified Trimester (HCC) Expected: 11/05/2023, Expires: 01/14/2025 Obstetrics and Gynecology office visit (clinic) Outpatient Referral Routine Expected: 12/24/2023, Expires: 01/14/2025 documented as of this encounter Results * CRAWFORD ECHO 2D WITH COLOR AND DOPPLER (11/16/2023 2:04 PM CDT) [facility] Signature Ejection Fraction [facility] Anatomical Region Laterality Modality Echocardiography 11/16/2023 [...] age 23 weeks , 6 days. 3. Crawford . 4. Normal cardiac anatomy. 5. Normal [...] Gestational age 23 weeks , 6days. 3. Crawford . 4. Normal cardiac anatomy. 5. Normal [...] Encounter For Supervision Of Normal Unspecified Trimester (HCC)- Primary Encounter For Supervision Of Normal Unspecified Trimester (HCC) documented in this encounter Additional Health Concerns Assessment Noted Time PHQ-9 Depression Total Score: 4 02/18/20 23 4:19 PM CDT documented as of this encounter Care Teams Supervisor Heavy Equipment Relationship Specialty Start Date End Date None Reported, Pcp PCP - General Family Medicine 06/16/23 documented as of this encounter
--- OUTSIDE RECORDS SUMMARY | 2023-12-14 18:39 | XMS_ITS | Referral Summary ---
Author Organization [facility] Address [address] [place] [address] Care Team Providers Care Events Specialist Name Role Phone None Reported, Pcp Primary Care Provider Unavail able Source Comments Patient records contain information from all sites at [facility]. For routine questions regarding patient records, call [phone] during business hours, M-F 8:00 AM - 5:00 PM Central Time. Record requests for emergency care only can be directed to [phone] at any time.[facility] Encounters Date Type Department Care Team Description 11/16/2023 2:30 PM CDT Comprehensive Visit Division of Pediatric Cardiology in [place], [place] [address] [place] [address] Favian Hutton Jr., M.D. Encounter For Supervision Of Normal Unspecified Trimester (HCC) 11/16/2023 12:59 PM CDT - 11/16/2023 11:59 PM CDT Hospital Encounter Department of Cardiovascular Diseases in [place], [place] [address] [place] [phone] Ariel Jackman M.D. Encounter For Supervision Of Normal Unspecified Trimester (HCC) Discharge Disposition: Home or Self Care 10/15/2023 2:00 PM CDT Routine Department of Obstetrics and Gynecology in [place], [place] [address] [place] [phone] Ariel Jackman M.D. Encounter For Supervision Of Normal Unspecified Trimester (HCC) (Primary Dx) 10/15/2023 12:31 PM CDT - 10/15/2023 11:59 PM CDT Hospital Encounter Department of Obstetrics and Gynecology in [place], [place] [address] [place] [phone] Jag Lamb M.B.B.S. Multigravida Advanced Maternal Age Affecting Management (HCC) Discharge Disposition: Home or Self Care 09/22/2023 2:30 PM CDT Nurse Only Department of Obstetrics and Gynecology in [place], [place] [address] [place] [address] Nelly Bourgeois R.N. 09/21/2023 Clinical Communication Department of Obstetrics and Gynecology in [place], [place] [address] [place] [address] Prescheduling, Provider MFM Triage from Last 3 Months Allergies Active Allergy Reactions Criticality Noted Date [...] nts Yes 03/08/2024 Based on Embryo Transfer Social History Tobacco Use Types Packs/Day Years [...] your living situation today? I have a [facility] place to live 02/17/2023 Education Answer [...] T Respiratory Rate 15 06/16/2023 10:22 AM ELECTRICAL EQUIPMENT TESTER Oxygen Saturation 97% 10/15/2023 2:43 PM CDT Inhaled Oxygen Concentration - - Weight 58.2 kg (128 lb 4.9 oz) 07/08/2023 2:27 P M ELECTRICAL EQUIPMENT TESTER Height 150 cm (4' 11.06) 07/08/2023 2:27 PM ELECTRICAL EQUIPMENT TESTER Body Mass Index 25.87 07/08/2023 2:27 PM ELECTRICAL EQUIPMENT TESTER Plan of Treatment Upcoming Encounters Date Type Department Care Team (Latest Contact Info) Description 12/24/2023 11:15 AM CDT Appointment Department of Obstetrics and Gynecology in [place], [place] [address] [place] [address] Ariel Jackman M.D. [address] [place] [phone] Discharge Disposition: Home or Self Care 12/24/2023 1:00 PM CDT Routine Department of Obstetrics and Gynecology in [place], [place] [address] [place] [address] Tiarra Panda M.D., Ph.D. [address] [place] [phone] Procedures Procedure Name Priority Date/Time Associated Diagnosis [...] DOPPLER (11/16/2023 2:04 PM CDT) Ejection Fraction [facility] Anatomical Region Laterality Modality Echocardiography 11/16/2023 1:12 [...] ??38 yrs Sex: ??Female Ref Phys: ??JAG ARAB Exam Date: 10/15/2023 Procedure: US OB ADVANCED [...] by Dixie Maxwell on 10/15/2023 2:27:48 PM. Mold Chipper: ??Dixie Maxwell Thank You For This Referral [...] by Dixie Maxwell on 10/15/2023 2:27:48 PM. Mold Chipper: Dixie Maxwell Thank You For This Referral Jag Velez IMG OB US PROCEDUR ES * HCV Ab Scrn w/Reflex to HCV PCR, Serum (09/04/2022) EXT HCV Ab, S Negative Negative, None detected EXTERNAL INTER[facility]ACED LAB Blood (Blood, Venous) 09/04/2022 Ordering Provider External [facility] OBIOLOGY - BLOOD ORDERABLES [facility] [address] [place] [address] from Last 3 Months or Most Recently Relevant to Health Maintenance Advance Directives For more information, please contact: [phone] * Full Code (Latest Code Status on File) Date Activated Date Inactivated Comments 06/16/2023 10:32 AM 06/16/2023 12:59 PM Question Answer Comments Full Code: Discussed * Full Code Date Activated Date Inactivated Comments 06/16/2023 8:09 AM 06/16/2023 10:32 AM Question Answer Comments Full Code: Discussed Care Teams Events Specialist Relationship Specialty Start Date End Date None Reported, Pcp PCP - General Family Medicine 06/16/23
== END 2023-12-13 09:24 | disposition home or self-care (01) ==
LOC: NFLDREF 12-14 18:36
PROVIDERS: PCP Family Medicine; Referring Provider Family Medicine; Visit Provider Obstetrics & Gynecology
DX: Z34.92 Encounter for supervision of normal pregnancy, unspecified, second trimester (principal); Z3A.27 27 weeks gestation of pregnancy
CPT/HCPCS: 86592

== ENCOUNTER 2023-12-20 08:50 | Emergency (ER) | payer OTHER, SELFPAY ==
[2023-12-20 09:01] VITALS: BP 91/58; PULSE 74; RESP 18; TEMP 36.3; O2SAT 100; BMI 27.6
--- NOTE | 2023-12-20 09:42 | ED.CHESTPAIN ---
HPI - Chest Pain General Chief Complaint: Chest Pain Stated Complaint: Chest pain/29 weeks Time Seen by Provider: 12/20/23 09:21 Source: patient Mode of arrival: ambulatory Limitations: no limitations History of Present Illness HPI narrative: Patient is a 38-year-old female with 2 miscarriage is presenting to the emergency department for chest pain. She has left lower chest pain that she states has been occurring every morning between 01:00 and 05:00 for the past few weeks. States she usually notices it when she lays on her left side in usually was started improving she rolls over to her right side. Pain is usually gone by 6 am. She knows the pain with be more persistent today but has now finally fully resolved. Denies symptoms like this previously. Was concerned so she came in to be evaluated. Denies fevers, chills, shortness of breath, weakness, numbness, abdominal pain, diarrhea, constipation, headache, vision changes. Has not noticed the pain is worse with deep breaths. Has not noticed any tenderness to palpation when she was having the pain. No history of blood clots. Has not had any lower extremity edema. No other concerns noted at this time Related Data Home Medications ?Medication ?Instructions ?Recorded ?Confirmed prenat.vits,raimundo,[id number] 1 tab PO QDAY 09/18/22 12/20/23 Previous Rx's ?Medication ?Instructions ?Recorded aspirin 81 mg chewable tablet 81 mg PO QDAY #60 tabs 09/20/23 Blood Glucose Meter #1 ea 10/21/23 cholecalciferol (vitamin D3) 25 25 mcg PO QDAY 90 days #90 caps 10/22/23 mcg (1,000 unit) capsule alcohol swabs (Alcohol Prep Pads) 1 pad topical .d #100 ea 12/16/23 insulin NPH isoph U-100 human 100 8 unit (0.08 mL) subcut .hs #30 mL 12/16/23 unit/mL subcutaneous suspension (Humulin N NPH U-100 Insulin (isophane susp)) insulin syringe-needle U-100 1 mL #100 ea 12/16/23 30 gauge x 5/16 (Sure Comfort Insulin Syringe) Test Strips #100 ea 12/20/23 lancets #100 ea 12/20/23 Allergies Allergy/AdvReac Type Severity Reaction Status Date / Time No Known Drug Allergies Allergy Verified 12/20/23 09:09 Review of Systems Status of ROS Reports: 10 or more systems reviewed and unremarkable except as noted in History and below [facility] Medical History History of BCG vaccination ?Z92.29 - Personal history of other drug therapy (ICD-10) Latent tuberculosis ?Z22.7 - Latent tuberculosis (ICD-10) 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 Nonsmoker. Smoking Status: Never smoker Do you use any of these nicotine containing products: None How often do you have a drink containing alcohol: never How often do you have six or more drinks on one occasion: Never AUDIT-C Alcohol total score: 0 Non-prescribed substance use: denies use Caffeine: Yes (rarely) Little interest or pleasure in doing things: not at all Feeling down, depressed, or hopeless: not at all Exam Narrative Exam Narrative: Const: Well-nourished, Well-developed, in no distress Eyes: PERRL, no conjunctival injection, and symmetrical lids HENT: Atraumatic external nose and ears. Moist mucous membranes. Neck: Symmetric, trachea midline, No thyromegaly. CVS: RRR, No murmurs or gallops. Peripheral pulses 2+ and equal in all extremities RESP: Unlabored respiratory effort. Clear to auscultation bilaterally. GI: Nontender/Nondistended, No rebound or guarding. MSK:Extremities w/o deformity, Normal Active ROM Skin: Warm, Dry. No rashes or lesions. Neuro: Normal Muscle tone, No focal neurological deficits. Psych: Awake, Alert, & Oriented x3. Appropriate mood and affect. Const Vital Signs, click to edit/add: Vital Signs - 24 hr 12/20/23 09:01 12/20/23 10:42 Temperature 97.4 F L Pulse Rate [Pulse Oximeter] 74 Respiratory Rate 18 Blood Pressure [Right Upper Arm] 91/58 L 95/70 Pulse Oximetry 100 Oxygen Delivery Method Room Air Course Vital Signs Vital signs: Initial Vital Signs Temperature 97.4 F L 12/20/23 09:01 Temperature Source Temporal Artery Scan 12/20/23 09:01 Pulse Rate 74 12/20/23 09:01 Respiratory Rate 18 12/20/23 09:01 Respiratory Effort Normal 12/20/23 09:01 Respiratory Depth Normal 12/20/23 09:01 Respiratory Pattern Normal 12/20/23 09:01 Blood Pressure 91/58 L 12/20/23 09:01 Blood Pressure Mean 69 L 12/20/23 09:01 Blood Pressure Position Sitting 12/20/23 09:01 Pulse Oximetry 100 12/20/23 09:01 Oxygen Delivery Method Room Air 12/20/23 09:01 Vital Signs Temperature 97.4 F L 12/20/23 09:01 Pulse Rate 74 12/20/23 09:01 Respiratory Rate 18 12/20/23 09:01 Blood Pressure 91/58 L 12/20/23 09:01 Pulse Oximetry 100 12/20/23 09:01 Oxygen Delivery Method Room Air 12/20/23 09:01 Temperature 97.4 F L 12/20/23 09:01 Pulse Rate 74 12/20/23 09:01 Respiratory Rate 18 12/20/23 09:01 Blood Pressure 95/70 12/20/23 10:42 Pulse Oximetry 100 12/20/23 09:01 Oxygen Delivery Method Room Air 12/20/23 09:01 MDM - Chest Pain MDM Narrative Medical decision making narrative: Patient is a 38-year-old female presenting to emergency department for chest pain. Considering this only occurs at night and is exacerbated with laying on her left side seems most likely to be musculoskeletal in nature. She is not having any chest pain at this time minute no point was feeling shortness of breath. I have considered a PE that could be causing the symptoms. I explained to her my concerns and after speaking to the patient about possibly needing a CTA of the chest she declined at this time. I did explain the risk to the are minimal. This seems reasonable as PE is pretty low on my differential at this time. does increase chance of blood clots but she has no lower extremity edema, the pain seems more position all with no associated shortness of breath and seems very unlikely she would be having a blood clot. Her pulse and respiratory rate are within normal limits in she the appears well at this time. Also order a CBC, CMP, troponin, EKG. I did offer chest x-ray but she refused at this time. Lab work returned showing no concerning abnormalities. She is otherwise feeling well and is not having any chest pain at this time. EKG shows no concerning findings. Of note she has mildly hypotensive but she states this is normal for her. I looked through her previous notes and this is actually 1 of her better blood pressures. At this time I feel comfortable discharging her home. She is agreeable to this plan. She has follow-up in a week with Ob already. Lab Data Labs: Lab Results 12/20/23 12/20/23 12/20/23 Range/Units 09:36 09:45 09:52 WBC 10.93 (4.50-11.00) K/uL RBC 3.96 L (4.00-5.20) m/uL Hgb 12.2 (12.0-16.0) gm/dL Hct 36.9 (33.0-51.0) % MCV 93 (80-100) fL MCH 31 (26-34) pg MCHC 33 (32-36) gm/dL RDW Coeff of Kirill 13.2 (11.5-15.5) % Plt Count 276 (140-440) K/uL Neut % (Auto) 71.0 (42.0-72.0) % Lymph % (Auto) 14.7 L (20-44) % [place] % (Auto) 8.3 (0.0-11.0) % Eos % (Auto) 2.7 (0.0-7.0) % Baso % (Auto) 0.4 (0.0-3.0) % Neut # (Auto) 7.76 H (1.7-7.0) K/uL Lymph # (Auto) 1.60 (0.90-2.90) K/uL [place] # (Auto) 0.90 (0.00-0.90) K/UL Eos # (Auto) 0.29 (0.00-0.50) K/uL Baso # (Auto) 0.04 (0.00-0.30) K/uL Abs Immat Gran (auto) 0.32 H (0.00-0.30) K/uL Imm/Tot Granulo (auto) 2.9 % Sodium 133 L (135-149) mmol/L Potassium 3.8 (3.6-5.1) mmol/L Chloride 107 (96-114) mmol/L Carbon Dioxide 21 (20-32) mmol/L Anion Gap 5 L (7-15) mEq/L BUN 7 (5-24) mg/dL Creatinine 0.4 L (0.5-1.5) mg/dL Estimated Creat Clear 143.90 Estimated GFR 130 ml/min Glucose 117 H (60-115) mg/dL Calcium 9.6 (8.4-10.6) mg/dL Total Bilirubin 0.3 (0.1-1.5) mg/dL Direct Bilirubin 0.1 (0.0-0.5) mg/dL AST 20 (12-35) U/L ALT 18 (4-35) U/L Alkaline Phosphatase 87 (40-150) U/L Total Protein 6.7 (6.0-8.3) g/dL Albumin 3.9 (3.3-5.0) g/dL POC Troponin I 0.00 L (0.01-0.04) ng/ml ECG Data Attestation: I personally reviewed and interpreted this ECG as follows: Prior ECG tracings: not available for review Interpretation: Normal sinus rhythm with a rate of 83 beats per minute, normal intervals, normal axis, no ST or T-wave abnormalities Discharge Plan Discharge Clinical Impression: Atypical chest pain Patient Disposition: Home, Self-Care Condition: Stable Instructions: Chest Wall Pain (ED) Additional Instructions: Make sure you sleep in a comfortable position as I believe sleeping on the left side is causing this musculoskeletal chest pain. If he do have worsening symptoms though it is important to be followed up as they may want to do a CT of the chest in the future. Keep your currently scheduled appointment with OB. Prescriptions: No Action (DME) Blood Glucose Meter [facility] See Rx Instructions .MEDSUPPLY Qty: 1 0RF Rx Instructions: As directed Humulin N NPH U-100 Insulin 100 unit/mL suspension 8 unit subcut .hs Qty: 30 1RF Rx Instructions: 8 U NPH at HS (DME) insulin syringe-needle U-100 [Sure Comfort Insulin Syringe] 1 mL 30 gauge x 5/16 syringe See Rx Instructions .ROUTE .MEDSUPPLY Qty: 100 3RF Rx Instructions: As directed alcohol swabs [Alcohol Prep Pads] Pads, Medicated 1 pad topical .d Qty: 100 2RF prenat.vits,raimundo,[id number] Tablet 1 tab PO QDAY aspirin 81 mg tablet,chewable 81 mg PO QDAY Qty: 60 2RF cholecalciferol (vitamin D3) 25 mcg (1,000 unit) capsule 25 mcg PO QDAY 90 Days Qty: 90 4RF (DME) lancets Misc See Rx Instructions .MEDSUPPLY Qty: 100 3RF Rx Instructions: Test blood sugar 4 times daily. (DME) Test Strips Misc See Rx Instructions .MEDSUPPLY Qty: 100 3RF Rx Instructions: Test blood sugar 4 times daily. Follow Up/Referrals: Fara Leiva DO [Primary Care Provider] - Stand Alone Forms: [facility] Info Instructions
[2023-12-20 09:54] LABS: Basophils Absolute Auto 0.04 K/uL (0.00-0.30); Basophils Percent Auto 0.4 % (0.0-3.0); Eosinophils Absolute Auto 0.29 K/uL (0.00-0.50); Eosinophils Percent Auto 2.7 % (0.0-7.0); Hematocrit 36.9 % (33.0-51.0); Hemoglobin* 12.2 gm/dL (12.0-16.0); Immature Granulocytes Abs Auto 0.32 K/uL (0.00-0.30); Immature Granulocytes Pct Auto 2.9 %; Lymphocytes Percent Auto 14.7 % (20-44); Mean Corpuscular HGB Conc 33 gm/dL (32-36); Mean Corpuscular Hemoglobin 31 pg (26-34); Mean Corpuscular Volume 93 fL (80-100); Monocytes Percent Auto 8.3 % (0.0-11.0); Neutrophils Absolute Auto 7.76 K/uL (1.7-7.0); Platelet Count* 276 K/uL (140-440); RDW Coefficient of Variation % 13.2 % (11.5-15.5); Red Blood Count 3.96 m/uL (4.00-5.20); White Blood Count* 10.93 K/uL (4.50-11.00)
--- OUTSIDE RECORDS SUMMARY | 2023-12-20 09:56 | XMS_ITS | Clinical Summary ---
Author Organization [employer] [facility] Address [place], [place] [address] Care Team Providers Care Mma Fighter Name Role Phone Lauren Conde Unavailable Mervat Anthony DO Primary Care Provider [phone] Allergies No known active allergies Medications No [...] Positive HBSAG Negative HEPCABY Non Reactive Comment [id number] Non Reactive No Known Allergies OB History [...] Reactive Non Reactive 09/08/2022 5:12 AM CDT [facility] ([facility]) Blood BLOOD SPECIMEN / Unknown Venipuncture / Unknown 09/04/2022 11:25 AM CDT 09/04/2022 11:27 AM CDT [facility]OTERIC TESTING ([facility]) - 09/08/2022 5:12 AM CDT Performed at: [address] [employer] [place], [place] ??[id number] Steam Box Operator: David Dumont MD, Phone: ??[phone] Karol Arellano MD LABORATORY [facility] ([facility]) [address] [place] [address], * LC HIV-1/O/2, 4TH GENERATION (09/04/2022 11:25 AM CDT) Pathologist [facility] HIV Scr 4th Gen Non Reactive Non Reactive 09/08/2022 6:[address] [facility] ([facility]) Comment: HIV Negative HIV-1/HIV-2 antibodies and HIV-1 p24 antigen were NOT detected. There is no laboratory evidence of HIV infection. Blood BLOOD SPECIMEN / Unknown Venipuncture / Unknown 09/04/2022 11:25 AM CDT 09/04/2022 11:27 AM CDT [facility]OTERIC TESTING ([facility]) - 09/08/2022 6:09 AM CDT Performed at: ??[address] [employer] [address] [place], [place] ??[id number] Steam Box Operator: David Dumont MD, Phone: ??[phone] Karol Arellano MD LABORATORY [facility] ([facility]) [address] [place] [address] * HPV HIGH RISK (03/19/2021 4:20 PM CDT) TYPE 16 Negative Negative 03/25/2021 6:14 AM [employer] [facility] TRAL LABORATORY TYPE 18 Negative Negative 03/25/2021 6:14 AM [employer] [facility] TRAL LABORATORY OTHER HIGH RISK TYPES Negative Negative 03/25/2021 6:14 AM [employer] [facility] TRAL LABORATORY Other (Cervical) Non-Blood / Unknown 03/19/2021 4:20 PM CDT 03/21/2021 11:42 AM CDT Narrative [facility] LABORATORY-CENTRAL LABORATORY - 03/25/2021 6:14 AM [employer] HPV types 16, 18, 31, 33, 35, 39, 45, 51, 52, 56, 58, 59, 66 and 68 DNA were undetectable or below the pre-set threshold. Methodology: Shahrzad Soila 4800 HPV Test Tawanna Bates MD MICROBIOLOGY [facility] LAB[facility]ORY [address] [place] [address], [place] from Last 3 Months or Most Recently Relevant to Health Maintenance Care Teams Mma Fighter Relationship Specialty Start Date End [place] [address] PCP - General Family Practice 02/24/23 Lauren Conde [address] [place] [address] 09/16/22
--- OUTSIDE RECORDS SUMMARY | 2023-12-20 09:57 | XMS_ITS | Encounter Summary ---
Author Organization [facility] Address [address] [place] [address] Care Team Providers Care Adviser Sales Name Role Phone None Reported, Pcp Primary Care Provider Unavail able Reason for Referral * Outpatient (Routine) - Closed Specialty Diagnoses / Procedures Referred By Babs de la vega Referred To Contact Diagnoses Encounter For Supervision Of Normal Unspecified Trimester (HCC) Procedures Echo Ariel Jackman M.D. [address] [place] [phone] Referral ID Status Reason Start Date Expiration Date Visits Re quested Visits Authorized [id number] Closed 10/15/2023 10/14/2024 1 1 Reason for Visit * Outpatient (Routine) - Closed Specialty Diagnoses / Procedures Referred By Babs de la vega Referred To Contact Diagnoses Encounter For Supervision Of Normal Unspecified Trimester (HCC) Procedures Echo Ariel Wade M.D. 200 [place] [address] Referral ID Status Reason Start Date Expiration Date Visits Re quested Visits Authorized [id number] Closed 10/15/2023 10/14/2024 1 1 Encounter Details Date Type Department Care Team (Latest Contact Info) Description 11/16/2023 12:59 PM CDT - 11/16/2023 11:59 PM CDT Hospital Encounter Department of Cardiovascular Diseases in [place], [place] [address] [place] [phone] Ariel Jackman M.D. [address] [place] [phone] Encounter For Supervision Of Normal Unspecified [...] your living situation today? I have a [facility] place to live 02/17/2023 Education Answer [...] Upcoming Encounters Date Type Department Care Team (Late st Contact Info) Description 12/24/2023 11:15 AM CDT Hospital Encounter Department of Obstetrics and Gynecology in [place], [place] [address] [place] [phone] Ariel Jackman M.D. [address] [place] [phone] 12/24/2023 1:00 PM CDT Routine Department of Obstetrics and Gynecology in [place], [place] [address] [place] [phone] Tiarra Panda M.D., Ph.D. [address] [place] [phone] documented as of this encounter Procedures Procedure Name Priority Date/Time Associated Diagnosis Comments OSEGUERA ECHO 2D WITH COLOR AND DOPPLER Routine 11/16/2023 2:04 PM CDT Encounter For Supervision Of Normal Unspecified Trimester (HCC) documented in this encounter Results * OSEGUERA ECHO 2D WITH COLOR AND DOPPLER (11/16/2023 2:04 PM CDT) Ejection Fraction [facility] Anatomical Region Laterality Modality Echocardiography 11/16/2023 [...] No pericardial effusion. No hydrops. Procedure Note Favain Hutton Jr., M.D. - 11/16/2023 For the [...] documented as of this encounter Care Teams Adviser Sales Relationship Specialty Start Date End Date None Reported, Pcp PCP - General Family Medicine 06/16/23 documented as of this encounter
--- OUTSIDE RECORDS SUMMARY | 2023-12-20 09:57 | XMS_ITS | Encounter Summary ---
Author Organization [facility] Address [address] [place] [address] Care Team Providers Care Knitting Tester Name Role Phone None Reported, Pcp Primary Care Provider Unavail able Reason for Visit * Outpatient (Routine) - Closed Specialty Diagnoses / Procedures Referred By Babs de la vega Referred To Contact Pediatric Cardiology Diagnoses Encounter For Supervision Of Normal Unspecified Trimester (HCC) Ariel Jackman M.D. [address] [place] [phone] [facility] Referral ID Status Reason Start Date Expiration Date Visits Re quested Visits Authorized [id number] Closed 10/15/2023 04/15/2025 1 1 Encounter Details Date Type Department Care Team (Latest Contact Info) Description 11/16/2023 2:30 PM CDT Comprehensive Visit Division of Pediatric Cardiology in [place], [place] [address] [place] [phone] Favian Hutton Jr., M.D. [address] [place] [phone] Encounter For Supervision Of Normal Unspecified [...] your living situation today? I have a [facility] place to live 02/17/2023 [...] Encounter Department of Obstetrics and Gynecology in [place], [place] [address] [place] [phone] Ariel Jackman M.D. [address] [place] [phone] 12/24/2023 1:00 PM CDT Routine Department of Obstetrics and Gynecology in [place], [place] [address] [place] [phone] Tiarra Panda M.D., Ph.D. [address] [place] [phone] documented as of this encounter Visit Diagnoses Diagnosis Encounter For Supervision Of Normal Unspecified Trimester (HCC) documented in this encounter Additional Health Concerns Assessment Noted Time PHQ-9 Depression Total Score: 4 02/18/20 23 4:19 PM CDT documented as of this encounter Care Teams Knitting Tester Relationship Specialty Start Date End Date None Reported, Pcp PCP - General Family Medicine 06/16/23 documented as of this encounter
--- OUTSIDE RECORDS SUMMARY | 2023-12-20 09:57 | XMS_ITS | Encounter Summary ---
Author Organization [facility] Address [address] [place] [address] Care Team Providers Care Group Exercise Manager Name Role Phone None Reported, Pcp Primary Care Provider Unavail able Reason for Visit * Reason Onset Date Comments MFM Triage 09/21/2023 Encounter Details Date Type Department Care Team (Late st Contact Info) Description 09/21/2023 Clinical Communication Department of Obstetrics and Gynecology in [place], [place] [address] [place] [phone] Prescheduling, Provider MFM Triage Social History Tobacco [...] your living situation today? I [facility] a [facility] place [facility] 02/17/2023 Estimated Date of [...] Encounter Department of Obstetrics and Gynecology in [place], [place] [address] [place] [phone] Ariel Jackman M.D. [address] [place] [phone] 12/24/2023 1:00 PM CDT Routine Department of Obstetrics and Gynecology in [place], [place] [address] [place] [phone] Tiarra Panda M.D., Ph.D. [address] [place] [phone] documented as of this encounter Visit Diagnoses Not on filedocumented in this encounter Additional Health Concerns Assessment Noted Time PHQ-9 Depression Total Score: 4 02/18/20 4:19 PM CDT documented as of this encounter Care Teams Group Exercise Manager Relationship Specialty Start Date End Date None Reported, Pcp PCP - General Family Medicine 06/16/23 documented as of this encounter
--- OUTSIDE RECORDS SUMMARY | 2023-12-20 09:57 | XMS_ITS | Clinical Summary ---
Author Organization [facility] Address [address] [place] [address] Care Team Providers Care Coating Operator Name Role Phone None Reported, Pcp Primary Care Provider Unavail able Source Comments Patient records contain information from all sites at [facility]. For routine questions regarding patient records, call [phone] during business hours, M-F 8:00 AM - 5:00 PM Central Time. Record requests for emergency care only can be directed to [phone] at any time.[facility] Allergies Active Allergy Reactions Criticality Noted [...] Comprehensive Visit Division of Pediatric Cardiology in [place], [place] [address] [place] [address] Favian Hutton Jr., M.D. Encounter For Supervision Of Normal Unspecified Trimester (HCC) 11/16/2023 12:59 PM CDT - 11/16/2023 11:59 PM CDT Hospital Encounter Department of Cardiovascular Diseases in [place], [place] [address] [place] [phone] Ariel Jackman M.D. Encounter For Supervision Of Normal Unspecified Trimester (HCC) Discharge Disposition: Home or Self Care 10/15/2023 2:00 PM CDT Routine Department of Obstetrics and Gynecology in [place], [place] [address] [place] [phone] Ariel Jackman M.D. Encounter For Supervision Of Normal Unspecified Trimester (HCC) (Primary Dx) 10/15/2023 12:31 PM CDT - 10/15/2023 11:59 PM CDT Hospital Encounter Department of Obstetrics and Gynecology in [place], [place] [address] [place] [phone] Jag Lamb M.B.B.S. Multigravida Advanced Maternal Age Affecting Management (HCC) Discharge Disposition: Home or Self Care 09/22/2023 2:30 PM CDT Nurse Only Department of Obstetrics and Gynecology in [place], [place] [address] [place] [phone] eNlly Bourgeois R.N. 09/21/2023 Clinical Communication Department of Obstetrics and Gynecology in [place], [place] [address] [place] [phone] Prescheduling, Provider MFM Triage from Last 3 [...] your living situation today? I have a [facility] place to live 02/17/2023 Education Answer Date [...] T Respiratory Rate 15 06/16/2023 10:22 AM LINE WELDER Oxygen Saturation 97% 10/15/2023 2:43 PM CDT Inhaled Oxygen Concentration - - Weight 58.2 kg (128 lb 4.9 oz) 07/08/2023 2:27 P M LINE WELDER Height 150 cm (4' 11.06) 07/08/2023 2:27 PM LINE WELDER Body Mass Index 25.87 07/08/2023 2:27 PM LINE WELDER Plan of Treatment Upcoming Encounters Date Type Department Care Team (Late st Contact Info) Description 12/24/2023 11:15 AM CDT Hospital Encounter Department of Obstetrics and Gynecology in [place], [place] [address] [place] [phone] Ariel Jackman M.D. [address] [place] [phone] 12/24/2023 1:00 PM CDT Routine Department of Obstetrics and Gynecology in [place], [place] [address] [place] [phone] Tiarra Panda M.D., Ph.D. [address] [place] [phone] Health Maintenance Due Date Last Done Comments [...] DOPPLER (11/16/2023 2:04 PM CDT) Ejection Fraction [facility] Anatomical Region Laterality Modality Echocardiography 11/16/2023 [...] by Dixie Maxwell on 10/15/2023 2:27:48 PM. Media Marketing Coordinator: ??Dixie Maxwell Thank You For This Referral [...] by Dixie Maxwell on 10/15/2023 2:27:48 PM. Media Marketing Coordinator: Dixie Maxwell Thank You For This Referral Jag Velez IMG OB US PROCEDUR ES * HCV Ab Scrn w/Reflex to HCV PCR, Serum (09/04/2022) EXT HCV Ab, S Negative Negative, None detected EXTERNAL INTERFACED LAB Blood (Blood, Venous) 09/04/2022 Ordering Provider External [facility] O[facility]OLOGY - BLOOD ORDERABLES EXTERNAL INTER[facility]ACED LAB [address] [place] [address] from Last 3 Months or Most Recently Relevant to Health Maintenance Advance Directives For more information, please contact: [phone] * Full Code (Latest Code Status on File) Date Activated Date Inactivated Comments 06/16/2023 10:32 AM 06/16/2023 12:59 PM Question Answer Comments Full Code: Discussed * Full Code Date Activated Date Inactivated Comments 06/16/2023 8:09 AM 06/16/2023 10:32 AM Question Answer Comments Full Code: Discussed Care Teams Coating Operator Relationship Specialty Start Date End Date None Reported, Pcp PCP - General Family Medicine 06/16/23
--- OUTSIDE RECORDS SUMMARY | 2023-12-20 09:57 | XMS_ITS | Encounter Summary ---
Author Organization [facility] Address [address] [place] [address] Care Team Providers Care Airplane Fueler Name Role Phone None Reported, Pcp Primary Care Provider Unavail able Encounter Details Date Type Department Care Team (Late st Contact Info) Description 09/22/2023 2:30 PM CDT Nurse Only Department of Obstetrics and Gynecology in [place], [place] [address] [place] [address] Nelly Bourgeois R.N. [address] [place] [address] Social History Tobacco Use Types Packs/Day Years [...] your living situation today? I have a [facility] place to live 02/17/2023 Education [...] is being referred by Dr. Lemon in [place] for an advanced level ultrasound due to [...] Encounter Department of Obstetrics and Gynecology in [place], [place] [address] [place] [phone] Ariel Jackman M.D. [address] [place] [phone] 12/24/2023 1:00 PM CDT Routine Department of Obstetrics and Gynecology in [place], [place] [address] [place] [address] Tiarra Panda M.D., Ph.D. [address] [place] [phone] documented as of this encounter Visit Diagnoses Diagnosis Multigravida Advanced Maternal Age Affecting Management (HCC)- Primary documented in this encounter Additional Health Concerns Assessment Noted Time PHQ-9 Depression Total Score: 4 02/18/20 23 4:19 PM CDT documented as of this encounter Care Teams Airplane Fueler Relationship Specialty Start Date End Date None Reported, Pcp PCP - General Family Medicine 06/16/23 documented as of this encounter
--- OUTSIDE RECORDS SUMMARY | 2023-12-20 09:57 | XMS_ITS ---
Author Organization [facility] Address [address] [place] [address] Care Team Providers Care Overlay Plastician Name Role Phone Unavailable Unavailable Unavailable Surgery Details Not on file Complications Check Surgery Details section. Procedure Estimated Blood Loss Check Surgery Details section. Procedure Findings Check Surgery Details section. Procedure Specimens Taken Check Surgery Details section.
--- OUTSIDE RECORDS SUMMARY | 2023-12-20 09:57 | XMS_ITS | Encounter Summary ---
Author Organization [facility] Address [address] [place] [id number] Care Team Providers Care Brine Process Operator Name Role Phone None Reported, Pcp Primary Care Provider Unavail able Reason for Referral * Outpatient (Routine) - Authorized Specialty Diagnoses / Procedures Referred By Babs de la vega Referred To Contact Obstetrics and Gynecology Ariel Jackman M.D. [address] [place] [address] [facility] Referral ID Status Reason Start Date Expiration Date V isits Requested Visits Authorized [id number] Authorized 10/15/2023 04/15/2025 1 1 Scheduling Instructions Augustina * Outpatient (Routine) - Closed Specialty Diagnoses / Procedures Referred By Babs de la vega Referred To Contact Diagnoses Encounter For Supervision Of Normal Unspecified Trimester (HCC) Procedures Echo Ariel Jackman M.D. [address] [place] [address] Referral ID Status Reason Start Date Expiration Date Visits Re quested Visits Authorized [id number] Closed 10/15/2023 10/14/2024 1 1 * Outpatient (Routine) - Closed Specialty Diagnoses / Procedures Referred By Babs de la vega Referred To Contact Pediatric Cardiology Diagnoses Encounter For Supervision Of Normal Unspecified Trimester (HCC) Ariel Jackman M.D. [address] [place] [address] [facility] Referral ID Status Reason Start Date Expiration Date Visits Re quested Visits Authorized [id number] Closed 10/15/2023 04/15/2025 1 1 Reason for Visit * Appointment Request (Routine) - Authorized Specialty Diagnoses / Procedures Referred By Contac t Referred To Contact Maternal and Medicine Diagnoses Tuberculosis Latent PreDiabetes Recurrent Loss First Trimester (HCC) Normal Not First (HCC) Lana Lemon M.D. [address] [place] [address] Referral ID Status Reason Start Date Expiration Date V isits Requested Visits Authorized [id number] Authorized 09/21/2023 09/20/2024 2 2 Encounter Details Date Type Department Care Team (Latest Contact Info) Description 10/15/2023 2:00 PM CDT Routine Department of Obstetrics and Gynecology in [place], [place] [address] [place] [address] Ariel Jackman M.D. [address] [place] [address] Encounter For Supervision Of Normal Unspecified Trimester [...] your living situation today? I have a [facility] place to live 02/17/2023 Education Answer [...] of congenital anomalies or genetic syndromes. 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 Ultrasound today demonstrates a crawford intrauterine . [...] care: Antepartum: echocardiography at 22-24 weeks (in [place]). Repeat obstetrical ultrasound at 28-32 weeks to evaluate placental location (in [place]), then every 4 weeks thereafter to monitor growth. Initiate weekly surveillance at 36 weeks. Consider delivery if the achieves 39 0/7-39 6/7 weeks gestation. My contact information was provided should any further questions arise, and return appointments scheduled today. Ariel Jacmkan M.D. documented in this encounter Plan of Treatment Upcoming Encounters Date Type Department Care Team (Late st Contact Info) Description 12/24/2023 11:15 AM CDT Hospital Encounter Department of Obstetrics and Gynecology in [place], [place] [address] [place] [address] Ariel Jackman M.D. [address] [place] [address] 12/24/2023 1:00 PM CDT Routine Department of Obstetrics and Gynecology in [place], [place] [address] [place] [address] Tiarra Panda M.D., Ph.D. [address] [place] [address] Scheduled Orders Name Type Priority Associated Diagnoses Orde r Schedule US OB Follow Up and or Growth and Transvaginal Imaging RAD - Routine (most inpatients and [...] COLOR AND DOPPLER (11/16/2023 2:04 PM CDT) [facility] Signature Ejection Fraction [facility] Anatomical Region Laterality Modality Echocardiography 11/16/2023 [...] documented as of this encounter Care Teams Brine Process Operator Relationship Specialty Start Date End Date None Reported, Pcp PCP - General Family Medicine 06/16/23 documented as of this encounter
--- OUTSIDE RECORDS SUMMARY | 2023-12-20 09:57 | XMS_ITS | Referral Summary ---
Author Organization [facility] Address [address] [place] [address] Care Team Providers Care Surfacer Operator Name Role Phone None Reported, Pcp Primary Care Provider Unavail able Source Comments Patient records contain information from all sites at [facility]. For routine questions regarding patient records, call [phone] during business hours, M-F 8:00 AM - 5:00 PM Central Time. Record requests for emergency care only can be directed to [phone] at any time.[facility] Encounters Date Type Department Care Team Description 11/16/2023 2:30 PM CDT Comprehensive Visit Division of Pediatric Cardiology in [place], [place] [address] [place] [address] Favian Hutton Jr., M.D. Encounter For Supervision Of Normal Unspecified Trimester (HCC) 11/16/2023 12:59 PM CDT - 11/16/2023 11:59 PM CDT Hospital Encounter Department of Cardiovascular Diseases in [place], [place] [address] [place] [phone] Ariel Jackman M.D. Encounter For Supervision Of Normal Unspecified Trimester (HCC) Discharge Disposition: Home or Self Care 10/15/2023 2:00 PM CDT Routine Department of Obstetrics and Gynecology in [place], [place] [address] [place] [phone] Ariel Jackman M.D. Encounter For Supervision Of Normal Unspecified Trimester (HCC) (Primary Dx) 10/15/2023 12:31 PM CDT - 10/15/2023 11:59 PM CDT Hospital Encounter Department of Obstetrics and Gynecology in [place], [place] [address] [place] [phone] Jag Lamb M.B.B.S. Multigravida Advanced Maternal Age Affecting Management (HCC) Discharge Disposition: Home or Self Care 09/22/2023 2:30 PM CDT Nurse Only Department of Obstetrics and Gynecology in [place], [place] [address] [place] [address] Nelly Bourgeois R.N. 09/21/2023 Clinical Communication Department of Obstetrics and Gynecology in [place], [place] [address] [place] [address] Prescheduling, Provider MFM Triage from Last 3 [...] your living situation today? I have a [facility] place to live 02/17/2023 Education Answer [...] T Respiratory Rate 15 06/16/2023 10:22 AM OCCUPATIONAL THERAPIST ASSISTANTS Oxygen Saturation 97% 10/15/2023 2:43 PM CDT Inhaled Oxygen Concentration - - Weight 58.2 kg (128 lb 4.9 oz) 07/08/2023 2:27 P M [employer]UPATIONAL THERAPIST ASSIST[employer] Height 150 cm (4' 11.06) 07/08/2023 2:27 PM OCCUPATIONAL THERAPIST ASSISTANTS Body Mass Index 25.87 07/08/2023 2:27 PM OCCUPATIONAL THERAPIST ASSISTANTS Plan of Treatment Upcoming Encounters Date Type Department Care Team (Late st Contact Info) Description 12/24/2023 11:15 AM CDT Hospital Encounter Department of Obstetrics and Gynecology in [place], [place] [address] [place] [address] Ariel Jackman M.D. [address] [place] [phone] 12/24/2023 1:00 PM CDT Routine Department of Obstetrics and Gynecology in [place], [place] [address] [place] [address] Tiarra Panda M.D., Ph.D. [address] [place] [phone] Procedures Procedure Name Priority Date/Time Associated Diagnosis [...] Abnormal: Placental cord insert Preliminary Read by Dxiie Maxwell on 10/15/2023 2:27:48 PM. Wrapper Cashier: ??Dixie Maxwell Thank You For This Referral Procedure Note Dulce Cadena M.D. - 10/15/2023 CHERYL DAWKINS OB Exam, 10/15/2023 EXAM INFORMATION Patient Name: CHERYL DAWKINS : 1985 Age: 38 yrs Sex: Female Ref Phys: CABRERADARLYN LAMB Exam Date: 10/15/2023 Procedure: US OB [...] by Dixie Maxwell on 10/15/2023 2:27:48 PM. Wrapper Cashier: Dixie Maxwell Thank You For This Referral Jag Velez IMG OB US PROCEDUR ES * HCV Ab Scrn w/Reflex to HCV PCR, Serum (09/04/2022) EXT HCV Ab, S Negative Negative, None detected [facility] Blood (Blood, Venous) 09/04/2022 Ordering Provider External [facility] OBIOLOGY - BLOOD ORDERABLES [facility] [address] [place] [address] from Last 3 Months or Most Recently Relevant to Health Maintenance Advance Directives For more information, please contact: [phone] * Full Code (Latest Code Status on File) Date Activated Date Inactivated Comments 06/16/2023 10:32 AM 06/16/2023 12:59 PM Question Answer Comments Full Code: Discussed * Full Code Date Activated Date Inactivated Comments 06/16/2023 8:09 AM 06/16/2023 10:32 AM Question Answer Comments Full Code: Discussed Care Teams Surfacer Operator Relationship Specialty Start Date End Date None Reported, Pcp PCP - General Family Medicine 06/16/23
--- OUTSIDE RECORDS SUMMARY | 2023-12-20 09:57 | XMS_ITS | Encounter Summary ---
Author Organization [facility] Address [address] [place] [address] Care Team Providers Care Family Development Specialist Name Role Phone None Reported, Pcp Primary Care Provider Unavail able Encounter Details Date Type Department Care Team (Latest Contact Info) Description 10/15/2023 12:31 PM CDT - 10/15/2023 11:59 PM CDT Hospital Encounter Department of Obstetrics and Gynecology in [place], [place] [address] [place] [address] Jag Lamb M.B.B.S. [address] [place] [address] Multigravida Advanced Maternal Age Affecting Management (HCC) [...] your living situation today? I have a [facility] place to live 02/17/2023 Education Answer [...] Encounter Department of Obstetrics and Gynecology in [place], [place] [address] [place] [address] Ariel Jackman M.D. [address] [place] [phone] 12/24/2023 1:00 PM CDT Routine Department of Obstetrics and Gynecology in [place], [place] [address] [place] [phone] Tiarra Panda M.D., Ph.D. [address] [place] [phone] documented as of this encounter Procedures Procedure [...] by Dixie Maxwell on 10/15/2023 2:27:48 PM. Retail Sales Teammate: ??Dixie Maxwell Thank You For This Referral Procedure Note Dulce Cadena M.D. - 10/15/2023 CHERYL DAWKINS OB Exam, 10/15/2023 EXAM INFORMATION Patient Name: CHERYL DAWKINS : 1985 Age: 38 yrs Sex: Female Ref Phys: JGA LAMB Exam Date: 10/15/2023 Procedure: US OB [...] by Dixie Maxwell on 10/15/2023 2:27:48 PM. Retail Sales Teammate: Dixie Maxwell Thank You For This Referral Jag ZUÑIGASasha OB US PROCEDUR ES documented in this encounter Visit Diagnoses Diagnosis Multigravida Advanced Maternal Age Affecting Management (HCC) documented in this encounter Additional Health Concerns Assessment Noted Time PHQ-9 Depression Total Score: 4 02/18/20 23 4:19 PM CDT documented as of this encounter Care Teams Family Development Specialist Relationship Specialty Start Date End Date None Reported, Pcp PCP - General Family Medicine 06/16/23 documented as of this encounter
[2023-12-20 10:05] LABS: Slide Review Reflex No
[2023-12-20 10:10] LABS: Albumin* 3.9 g/dL (3.3-5.0)
[2023-12-20 10:11] LABS: Chloride* 107 mmol/L (96-114); Potassium* 3.8 mmol/L (3.6-5.1); Sodium* 133 mmol/L (135-149)
[2023-12-20 10:13] LABS: Aspartate Amino Transferase* 20 U/L (12-35); Bilirubin Direct* 0.1 mg/dL (0.0-0.5); Bilirubin Total* 0.3 mg/dL (0.1-1.5); Total Protein* 6.7 g/dL (6.0-8.3)
[2023-12-20 10:14] LABS: Alanine Aminotransferase* 18 U/L (4-35); Alkaline Phosphatase* 87 U/L (40-150)
[2023-12-20 10:14] LABS: Creatinine* 0.4 mg/dL (0.5-1.5); Estimated Glomerular Filt Rate 130 ml/min
[2023-12-20 10:15] LABS: Anion Gap 5 mEq/L (7-15); Blood Urea Nitrogen* 7 mg/dL (5-24); Calcium* 9.6 mg/dL (8.4-10.6); Carbon Dioxide* 21 mmol/L (20-32); Glucose* 117 mg/dL (60-115)
[2023-12-20 10:42] VITALS: BP 95/70
== END 2023-12-20 11:01 | disposition home or self-care (01) ==
PROVIDERS: Emergency Provider Student in an Organized Health Care Education/Training Program; PCP Family Medicine
DX: R07.9 Chest pain, unspecified (principal)
CPT/HCPCS: 36415; 80048; 80076; 84484; 85025; 93005; 99283; 99284

== ENCOUNTER 2024-01-14 10:04 | Outpatient (CLI) | payer OTHER, SELFPAY ==
--- OUTSIDE RECORDS SUMMARY | 2024-01-14 10:07 | XMS_ITS | Clinical Summary ---
Author Organization [facility] Address [address] [place] [address] Care Team Providers Care Revenue Accounting Manager Name Role Phone None Reported, Pcp Primary Care Provider Unavail able Source Comments Patient records contain information from all sites at [facility]. For routine questions regarding patient records, call [phone] during business hours, M-F 8:00 AM - 5:00 PM Central Time. Record requests for emergency care only can be directed to [phone] at any time.[facility] Allergies Active Allergy Reactions Criticality Noted Date Comments Pollen Extracts Cough 02/19/2023 Medications Medication Sig Dispensed Refills Start Date End Date Status vit calc,iron,folic (PRENAT.VITS,DONNIE,MIN-I LAURYN-FOLIC ORAL) Take 1 tablet by mouth. 09/18/2022 Active cholecalciferol, vitamin D3, (VITAMIN D3 ORAL) Take by mouth. Active aspirin 81 mg chewable tablet Chew 81 mg daily. 09/20/2023 Active Active Problems Problem Noted Date Diagnosed Date Abnormal Ultrasound Placental Low Lying 12/24/19 24 Diabetes Mellitus Gestational 12/24/19 24 Infertility Female 06/14/2023 Tuberculosis Latent 06/04/2022 Overview (02/19/2023): See 03/2021 medical message - patient reports CXR normal. Has not had treatment Estimated Date of Delivery Comme nts Yes 03/08/2024 Based on Embryo Transfer Resolved Problems Problem Noted Date Diagnosed Date Resolved Date Recurrent Loss Not Currently 04/12/2023 12/24/2023 Encounters Date Type Department Care Team Description 12/24/2023 1:00 PM CDT Routine Department of Obstetrics and Gynecology in [place], [place] [address] [place] [address] Tiarra Panda M.D., Ph.D. Abnormal Ultrasound Placental Low Lying (Primary Dx); Diabetes Mellitus Gestational (HCC) 12/24/2023 10:59 AM CDT - 12/24/2023 11:59 PM CDT Hospital Encounter Department of Obstetrics and Gynecology in [place], [place] [address] [place] [phone] Ariel Gunderson M.D. Encounter For Supervision Of Normal Unspecified Trimester (HCC) Discharge Disposition: Home or Self Care 11/16/2023 2:30 PM CDT Comprehensive Visit Division of Pediatric Cardiology in [place], [place] [address] [place] [phone] Favian Hutton Jr., M.D. Encounter For Supervision Of Normal Unspecified Trimester (HCC) 11/16/2023 12:59 PM CDT - 11/16/2023 11:59 PM CDT Hospital Encounter Department of Cardiovascular Diseases in [place], [place] [address] [place] [phone] Ariel Gunderson M.D. Encounter For Supervision Of Normal Unspecified Trimester (HCC) Discharge Disposition: Home or Self Care 10/15/2023 2:00 PM CDT Routine Department of Obstetrics and Gynecology in [place], [place] [address] [place] [phone] Ariel Gunderson M.D. Encounter For Supervision Of Normal Unspecified Trimester (HCC) (Primary Dx) 10/15/2023 12:31 PM CDT - 10/15/2023 11:59 PM CDT Hospital Encounter Department of Obstetrics and Gynecology in [place], [place] [address] [place] [address] Jag Fuentes M.B.B.S. Multigravida Advanced Maternal Age Affecting Management (HCC) Discharge Disposition: Home or Self Care from Last 3 Months Family History Medical [...] your living situation today? I have a [facility] place to live 02/17/2023 Education Answer [...] Sign Reading Time Taken Comments Blood Pressure 85/56 12/24/2023 12:09 PM CDT Pulse 73 12/24/2023 12:09 PM CDT Temperature 36.6 ??C (97.9 ??F) 06/16/2023 8:56 AM CS T Respiratory Rate 15 06/16/2023 10:2 2 AM MANAGER ONCOLOGY Oxygen Saturation 97% 12/24/2023 12: 09 PM CDT Inhaled Oxygen Concentration - - Weight 67.1 kg (147 lb 14.9 oz) 024 12:09 PM CDT Height 150 cm (4' 11.06) 07/08/2023 2:27 PM MANAGER ONCOLOGY Body Mass Index 29.82 07/08/2023 2:27 PM MANAGER ONCOLOGY Plan of Treatment Health Maintenance Due Date Last Done Comments Cervical Cancer Screening 1985 HIV Screening 1985 Pneumococcal vaccine (0-64 years) (1 of 2 - PCV) 1991 Hepatitis B Vaccines (1 of 3 - [...] Priority Date/Time Associated Diagnosis Comments US OB FOLLOW UP GROWTH AND TRANSVAGINAL RAD - Routine (most inpatients and all outpatients) 12/24/2023 12:04 PM CDT Encounter For Supervision Of Normal Unspecified Trimester (HCC) OSEGUERA ECHO 2D WITH COLOR AND DOPPLER [...] Recently Relevant to Health Maintenance Results * US OB Follow Up and or Growth and Transvaginal (12/24/2023 12:04 PM CDT) Anatomical Region Laterality Modality Body, Ultrasound OB RST LOS, Ultrasound ARZ LOS N/A Ultrasound Narrative 12/24/2023 12:15 PM CDT CHERYL PARDO OB Exam, 12/24/2023 EXAM INFORMATION Patient Name: ??CHERYL PARDO : ??1985 Age: ??38 yrs Sex: ??Female Ref Phys: ??ARIEL GUNDERSON Exam Date: 12/24/2023 Procedure: US OB FOLLOW UP GROWTH AND TRANSVAGINAL Exam Site: [facility] OB #3 Plurality: 1 OBHx: [G:(3)] ?F Trm:() Pre:() C-Sec:() Ab-I:() Ab-S:() Ect:() Multi:() Asha:() INDICATIONS FOR SONOGRAPHY Advanced Maternal age IMPRESSION Both transabdominal and transvaginal ultrasound were performed. Transvaginal ultrasound was performed to better assess placenta location. Growth Fetus: Live oseguera intrauterine . Presentation: Cephalic. Growth: Appropriate for gestational age (EFW 1509 grams, 67th percentile, AC 88th percentile). No microcephaly. Amniotic fluid volume: Normal (MVP 5.31 cm). Placenta: Persistent anterior low lying placenta, with no vasa previa. Inferior edge of placenta is 1.2 cm from internal os of cervix. Conclusion: Live oseguera intrauterine in cephalic presentation. Appropriate growth and normal amniotic fluid volume. Persistent anterior low lying placenta (1.2 cm from internal os). No vasa previa. MEASUREMENTS ??katie ??wks [+/-] (Range) % ?? BPD: 6.88 cm ?? 27w5d ??[+/-2.18] ??(6.80 - 7.98) 4% FL: ??5.62 cm ?? 29w4d ??[+/-2.08] ??(5.09 - 6.27) 42% HC: ??26.65 cm ?? 29w0d ??[+/-2.06] ??(25.84 - 29.76) 12% AC: ??26.9 cm ?? 31w0d ??[+/-2.96] ??(22.66 - 27.91) 88% RATIOS ??(Range) % ?? HC/AC: 0.99 ?(0.99 - 1.21) 5% ?? FL/BPD: 0.82 ? FL/AC: 0.21 ? COMPUTATIONS GA: ?? 29w2d [+/-1.80] Method: ??HERBERTH HERBERTH: ??03/08/2024 Sono GA: ??29w0d [+/-1.80] Method: ?? BPD, HC, AC, FL Weight: ??1509 gms. ??3 lb 5 oz. ??67% Method: ??BPD, HC, AC, FL OBSERVATIONS Amniotic Fluid Fluid Volume: ??Normal MVP: ??5.31 cm Placenta: ??Placenta is Anterior, Low Lying. ?? Presentation: ?Cephalic Size: ?Normal for dates Growth: ??Within normal limits. FHR: ??148 bpm Sex: ??Male COMMENTS Preliminary Read by Torri Franz R.D.M.S. on 12/24/2023 12:04:23 PM. Photo Retoucher: ??Torri Franz R.D.M.SKelley Thank You For This Referral Procedure Note Sherry Ramirez M.D. - 12/24/2023 CHERYL PARDO OB Exam, 12/24/2023 EXAM INFORMATION Patient Name: CHERYL PARDO : 1985 Age: 38 yrs Sex: Female Ref Phys: ARIEL GUNDERSON Exam Date: 12/24/2023 Procedure: US OB FOLLOW UP GROWTH AND TRANSVAGINAL Exam Site: [facility] OB #3 Plurality: 1 OBHx: [G:(3)] F Trm:() Pre:() C-Sec:() Ab-I:() Ab-S:() Ect:() Multi:() Asha:() INDICATIONS FOR SONOGRAPHY Advanced Maternal age IMPRESSION Both transabdominal and transvaginal ultrasound were performed. Transvaginal ultrasound was performed to better assess placenta location. Growth Fetus: Live oseguera intrauterine . Presentation: Cephalic. Growth: Appropriate for gestational age (EFW 1509 grams, 67th percentile,AC 88th percentile). No microcephaly. Amniotic fluid volume: Normal (MVP 5.31 cm). Placenta: Persistent anterior low lying placenta, with no vasa previa.Inferior edge of placenta is 1.2 cm from internal os of cervix. Conclusion: Live oseguera intrauterine in cephalic presentation. Appropriate growth and normal amniotic fluid volume. Persistent anterior low lying placenta (1.2 cm from internal os). No vasa previa. MEASUREMENTS katie wks [+/-] (Range) % BPD: 6.88 cm 27w5d [+/-2.18] (6.80 - 7.98) 4% FL: 5.62 cm 29w4d [+/-2.08] (5.09 - 6.27) 42% HC: 26.65 cm 29w0d [+/-2.06] (25.84 - 29.76) 12% AC: 26.9 cm 31w0d [+/-2.96] (22.66 - 27.91) 88% RATIOS (Range) % HC/AC: 0.99 (0.99 - 1.21) 5% FL/BPD: 0.82 FL/AC: 0.21 COMPUTATIONS GA: 29w2d [+/-1.80] Method: HERBERTH HERBERTH: 03/08/2024 Sono GA: 29w0d [+/-1.80] Method: BPD, HC, AC, FL Weight: 1509 gms. 3 lb 5 oz. 67% Method: BPD, HC, AC, FL OBSERVATIONS Amniotic Fluid Fluid Volume: Normal MVP: 5.31 cm Placenta: Placenta is Anterior, Low Lying. Presentation: Cephalic Size: Normal for dates Growth: Within normal limits. FHR: 148 bpm Sex: Male COMMENTS Preliminary Read by Torri Franz R.D.M.SKelley on 12/24/2023 12:04:23 PM. Photo Retoucher: Torri Franz R.D.MKelleySKelley Thank You For This Referral Ariel Gunderson M.D. IMG OB US PROCEDURES * OSEGUERA ECHO 2D WITH COLOR AND DOPPLER (11/16/2023 2:04 PM CDT) Ejection Fraction [facility] Anatomical Region Laterality Modality Echocardiography 11/16/2023 [...] complete report, see the Order-Level Documents. Ariel Gunderson M.D. CV ECHO PROCEDURES * US OB Advanced Level Oseguera and Transvaginal (10/15/2023 2:46 PM CDT) Anatomical Region Laterality Modality Body, Ultrasound OB RST LOS, Ultrasound ARZ LOS N/A Ultrasound Narrative 10/15/2023 2:41 PM CDT CHERYL PARDO OB Exam, 10/15/2023 EXAM INFORMATION Patient Name: ??CHERYL PARDO : ??1985 Age: ??38 yrs Sex: ??Female [...] by Dixie Maxwell on 10/15/2023 2:27:48 PM. Photo Retoucher: ??Dixie Maxwell Thank You For This Referral Procedure Note Dulce Cadena M.D. - 10/15/2023 CHERYL PARDO OB Exam, 10/15/2023 EXAM INFORMATION Patient Name: CHERYL PARDO : 1985 Age: 38 yrs Sex: Female Ref Phys: JAG FUENTES Exam Date: 10/15/2023 Procedure: US OB ADVANCED LEVEL OSEGUERA AND TRANSVAGINAL Plurality: 1 OBHx: [G:(3)] F Trm:() Pre:() C-Sec:() Ab-I:() Ab-S:() Ect:() Multi:() Asha:() INDICATIONS FOR SONOGRAPHY Advanced Level Anatomy IMPRESSION A transabdominal detailed ultrasound examination of the fetus andtransvaginal scan were ordered and performed secondary to anomalyscreening, SYEDA. Findings: Oseguera intrauterine with good activity. Size [...] by Dixie Maxwell on 10/15/2023 2:27:48 PM. Photo Retoucher: Dixie Maxwell Thank You For This Referral Jag Velez IMG OB US PROCEDUR ES * HCV Ab Scrn w/Reflex to HCV PCR, Serum (09/04/2022) EXT HCV Ab, S Negative Negative, None detected EXTERNAL INTERFACED LAB Blood (Blood, Venous) 09/04/2022 Ordering Provider External M.DKelley LAB MICR OBIOLOGY - BLOOD ORDERABLES EXTERNAL INTERFACED LAB [address] [place] [address] from Last 3 Months or Most Recently Relevant to Health Maintenance Advance Directives For more information, please contact: [phone] * Full Code (Latest Code Status on File) Date Activated Date Inactivated Comments 06/16/2023 10:32 AM 06/16/2023 12:59 PM Question Answer Comments Full Code: Discussed * Full Code Date Activated Date Inactivated Comments 06/16/2023 8:09 AM 06/16/2023 10:32 AM Question Answer Comments Full Code: Discussed Care Teams Revenue Accounting Manager Relationship Specialty Start Date End Date None Reported, Pcp PCP - General Family Medicine 06/16/23
--- OUTSIDE RECORDS SUMMARY | 2024-01-14 10:07 | XMS_ITS | Encounter Summary ---
Author Organization [facility] Address [address] [place] [address] Care Team Providers Care Software Quality Tester Name Role Phone None Reported, Pcp Primary Care Provider Unavail able Reason for Referral * Outpatient (Routine) - Closed Specialty Diagnoses / Procedures Referred By Babs de la vega Referred To Contact Obstetrics and Gynecology Ariel Gunderson M.D. [address] [place] [address] [facility] Referral ID Status Reason Start Date Expiration Date Visits Re quested Visits Authorized [id number] Closed 10/15/2023 04/15/2025 1 1 Scheduling Instructions Augustina * Outpatient (Routine) - Closed Specialty Diagnoses / Procedures Referred By Babs de la vega Referred To Contact Diagnoses Encounter For Supervision Of Normal Unspecified Trimester (HCC) Procedures Echo Ariel Gunderson M.D. [address] [place] [address] Referral ID Status Reason Start Date Expiration Date Visits Re quested Visits Authorized [id number] Closed 10/15/2023 10/14/2024 1 1 * Outpatient (Routine) - Closed Specialty Diagnoses / Procedures Referred By Babs de la vega Referred To Contact Pediatric Cardiology Diagnoses Encounter For Supervision Of Normal Unspecified Trimester (HCC) Ariel Gunderson M.D. [address] [place] [address] [facility] Referral ID Status Reason Start Date Expiration Date Visits Re quested Visits Authorized [id number] Closed 10/15/2023 04/15/2025 1 1 Reason for Visit * Appointment Request (Routine) - Authorized Specialty Diagnoses / Procedures Referred By Contac t Referred To Contact Maternal and Medicine Diagnoses Tuberculosis Latent PreDiabetes Recurrent Loss First Trimester (HCC) Normal Not First (HCC) Lana Lemon M.D. [address] [place] [address] Referral ID Status Reason Start Date Expiration Date V isits Requested Visits Authorized [id number] Authorized 09/21/2023 09/20/2024 2 2 Encounter Details Date Type Department Care Team (Latest Contact Info) Description 10/15/2023 2:00 PM CDT Routine Department of Obstetrics and Gynecology in [place], [place] [address] [place] [address] Ariel Gunderson M.D. [address] [place] [address] Encounter For Supervision Of Normal Unspecified Trimester [...] your living situation today? I have a [facility] place to live 02/17/2023 Education [...] in this encounter Consult Notes * Ariel Gunderson M.D. 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 Ultrasound today demonstrates a crawford intrauterine [...] care: Antepartum: echocardiography at 22-24 weeks (in [place]). Repeat obstetrical ultrasound at 28-32 weeks to evaluate placental location (in [place]), then every 4 weeks thereafter to monitor growth. Initiate weekly surveillance at 36 weeks. Consider delivery if the achieves 39 0/7-39 6/7 weeks gestation. My contact information was provided should any further questions arise, and return appointments scheduled today. Ariel Gunderson M.D. documented in this encounter Plan of Treatment Scheduled Referrals Name Type Priority Associated Diagnoses Orde r Schedule Pediatric Cardiology - clinic consult (clinic) Outpatient Referral Routine Encounter For Supervision Of Normal Unspecified Trimester (HCC) Expected: 11/05/2023, Expires: 01/14/2025 Obstetrics and Gynecology office visit (clinic) Outpatient Referral Routine Expected: 12/24/2023, Expires: 01/14/2025 documented as of this encounter Results * US OB Follow Up and or Growth and Transvaginal (12/24/2023 12:04 PM CDT) Anatomical Region Laterality Modality Body, Ultrasound OB RST MATILDE Ultrasound SUSHANT CLAYTON N/A Ultrasound Narrative 12/24/2023 12:15 PM CDT CHERYL DAWKINS OB Exam, 12/24/2023 EXAM INFORMATION Patient Name: ??CHAR CHERYL : ??1985 Age: ??38 yrs Sex: ??Female Ref Phys: ??ARIEL GUNDERSON Exam Date: 12/24/2023 Procedure: US OB FOLLOW UP GROWTH AND TRANSVAGINAL Exam Site: [facility] OB #3 Plurality: 1 OBHx: [G:(3)] ?F Trm:() Pre:() C-Sec:() Ab-I:() Ab-S:() Ect:() Multi:() Asha:() INDICATIONS FOR SONOGRAPHY Advanced Maternal age IMPRESSION Both transabdominal and transvaginal ultrasound were performed. Transvaginal ultrasound was performed to better assess placenta location. Growth Fetus: Live crawford intrauterine . Presentation: Cephalic. Growth: Appropriate for gestational age (EFW 1509 grams, 67th percentile, AC 88th percentile). No microcephaly. Amniotic fluid volume: Normal (MVP 5.31 cm). Placenta: Persistent anterior low lying placenta, with no vasa previa. Inferior edge of placenta is 1.2 cm from internal os of cervix. Conclusion: Live crawford intrauterine in cephalic presentation. Appropriate growth and [...] ??Male COMMENTS Preliminary Read by Torri Franz REsther.M.S. on 12/24/2023 12:04:23 PM. Limousine And Hearse Upholsterer: ??Torri Franz R.D.M.SKelley Thank You For This Referral Procedure Note Sherry Ramirez M.D. - 12/24/2023 CHERYL DAWKINS OB Exam, 12/24/2023 EXAM INFORMATION Patient Name: CHERYL DAWKINS : 1985 Age: 38 yrs Sex: Female Ref Phys: ARIEL GUNDERSON Exam Date: 12/24/2023 Procedure: US OB FOLLOW UP GROWTH AND TRANSVAGINAL Exam Site: [facility] OB #3 Plurality: 1 OBHx: [G:(3)] F Trm:() Pre:() C-Sec:() Ab-I:() Ab-S:() Ect:() Multi:() Asha:() INDICATIONS FOR SONOGRAPHY Advanced Maternal age IMPRESSION Both transabdominal and transvaginal ultrasound were performed. Transvaginal ultrasound was performed to better assess placenta location. Growth Fetus: Live crawford intrauterine . Presentation: Cephalic. Growth: Appropriate for gestational age (EFW 1509 grams, 67th percentile,AC 88th percentile). No microcephaly. Amniotic fluid volume: Normal (MVP 5.31 cm). Placenta: Persistent anterior low lying placenta, with no vasa previa.Inferior edge of placenta is 1.2 cm from internal os of cervix. Conclusion: Live crawford intrauterine in cephalic presentation. Appropriate growth and [...] Male COMMENTS Preliminary Read by Torri Franz R.D.MKelleySKelley on 12/24/2023 12:04:23 PM. Limousine And Hearse Upholsterer: Torri Franz R.D.M.S. Thank You For This Referral Ariel Gunderson M.D. IMG OB US PROCEDURES * CRAWFORD ECHO 2D WITH COLOR AND DOPPLER (11/16/2023 2:04 PM CDT) Ejection Fraction [facility] Anatomical Region Laterality Modality Echocardiography 11/16/2023 [...] Documents. Ariel Gunderson M.D. CV ECHO PROCEDURES documented in this encounter Visit Diagnoses Diagnosis Encounter For Supervision Of Normal Unspecified Trimester (HCC)- Primary Encounter For Supervision Of Normal Unspecified Trimester (HCC) Encounter For Supervision Of Normal Unspecified Trimester (HCC) documented in this encounter Additional Health Concerns Assessment Noted Time PHQ-9 Depression Total Score: 4 02/18/20 23 4:19 PM CDT documented as of this encounter Care Teams Software Quality Tester Relationship Specialty Start Date End Date None Reported, Pcp PCP - General Family Medicine 06/16/23 documented as of this encounter
--- OUTSIDE RECORDS SUMMARY | 2024-01-14 10:07 | XMS_ITS | Encounter Summary ---
Author Organization [facility] Address [address] [place] [address] Care Team Providers Care Supervisor Epoxy Fabrication Name Role Phone None Reported, Pcp Primary Care Provider Unavail able Reason for Visit * Reason Onset Date Comments MFM Triage 09/21/2023 Encounter Details Date Type Department Care Team (Late st Contact Info) Description 09/21/2023 Clinical Communication Department of Obstetrics and Gynecology in [place], [place] [address] [place] [address] Prescheduling, Provider MFM Triage Social History Tobacco [...] your living situation today? I have a [facility] place to live 02/17/2023 Estimated Date of Delivery Comme nts Yes 03/08/2024 Based on Embryo Transfer Sex and Gender Information Value Date Recorded Sex Assigned at Female 02/17/2023 4:06 PM CDT Gender Identity Female 02/17/2023 4:06 PM CDT Sexual Orientation Straight 02/17/2023 4: 06 PM CDT documented as of this encounter Plan of Treatment Not on file documented as of this encounter Visit Diagnoses Not on filedocumented in this encounter Additional Health Concerns Assessment Noted Time PHQ-9 Depression Total Score: 4 02/18/20 4:19 PM CDT documented as of this encounter Care Teams Supervisor Epoxy Fabrication Relationship Specialty Start Date End Date None Reported, Pcp PCP - General Family Medicine 06/16/23 documented as of this encounter
--- OUTSIDE RECORDS SUMMARY | 2024-01-14 10:07 | XMS_ITS | Encounter Summary ---
Author Organization [facility] Address [address] [place] [address] Care Team Providers Care Candy Decorator Name Role Phone None Reported, Pcp Primary Care Provider Unavail able Reason for Visit * Outpatient (Routine) - Closed Specialty Diagnoses / Procedures Referred By Babs de la vega Referred To Contact Obstetrics and Gynecology Ariel Jackman M.D. [address] [place] [address] [facility] Referral ID Status Reason Start Date Expiration Date Visits Re quested Visits Authorized [id number] Closed 10/15/2023 04/15/2025 1 1 Encounter Details Date Type Department Care Team (Latest Contact Info) Description 12/24/2023 1:00 PM CDT Routine Department of Obstetrics and Gynecology in [place], [place] [address] [place] [phone] Tiarra Panda M.D., Ph.D. [address] [place] [phone] Abnormal Ultrasound Placental Low Lying (Primary Dx); Diabetes Mellitus Gestational (HCC) Social History Tobacco Use Types Packs/Day [...] your living situation today? I have a [facility] place to live 02/17/2023 Education Answer Date [...] Pulse 73 12/24/2023 12:09 PM CDT Temperature - - Respiratory Rate - - Oxygen Saturation 97% 12/24/2023 12: 09 PM CDT Inhaled Oxygen Concentration - - Weight 67.1 kg (147 lb 14.9 oz) 024 12:09 PM CDT Height - - Body Mass Index 29.82 07/08/2023 2:27 PM PHARMACIST IN CHARGE documented in this encounter Progress Notes * Tairra Panda M.D., Ph.D. - 12/24/2023 1:00 PM CDT MATERNAL MEDICINE SUBJECTIVE Justin Dawkins is a 38 y.o. at 29w2d who returns to [facility] for ultrasound to evaluate placental location. Estimated Date of Delivery: 03/08/24. Justin Dawkins receives her care in [place]. She underwent IVF here at [facility]; therefore, had her anatomy survey completed here when she was 19w2d. No anomalies were noted; however there was a complete anterior placenta previa. She returns today for re-evaluation of the placental location. 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 OBJECTIVE Vitals: 12/24/23 1209 BP: (!) 85/56 Pulse: 73 SpO2: 97% Ultrasound Today: Both transabdominal and transvaginal ultrasound were performed. Transvaginal ultrasound was performed to better assess placenta location. Growth Fetus: Live crawford intrauterine . Presentation: Cephalic. Growth: Appropriate for gestational age (EFW 1509 grams, 67th percentile, AC 88th percentile). No microcephaly. Amniotic fluid volume: Normal (MVP 5.31 cm). Placenta: Persistent anterior low lying placenta, with no vasa previa. Inferior edge of placenta is1.2 cm from internal os of cervix. Conclusion: Live crawford intrauterine in cephalic presentation. Appropriate growth and normal amniotic fluid volume. Persistent anterior low lying placenta (1.2 cm from internal os). No vasa previa. ASSESSMENT / PLAN Today we reviewed the ultrasound findings of appropriate growth and now a low-lying placenta (1.2 cm from internal os). I explained that a low-lying placenta refers to a placental edge less than 2 cm from the internal cervical os. No standard guidelines are available regarding mode of delivery in patients with a low-lying placenta. A low-lying placenta has been associated with increased risk of bleeding during delivery and studies have suggested that the distance from the os is an important predictor of a successfu l vaginal delivery. According to our guidelines: Placental edge <10 mm (1 cm) from internal os: Recommend at 39 0/7 weeks gestation; however, trial of labor can be considered with counseling Placental edge 11-20 mm from internal os: Candidate for trial of labor However, I also explained that her placenta will likely NOT be low-lying at time of delivery. A repeat ultrasound is recommended in 4-6 weeks for re-evaluation of the placental edge. Justin Dawkins can have the ultrasound performed locally; she can continue with all of her care and delivery in [place]. Plan/Recommendations: Surveillance: A repeat ultrasound is recommended in 4-6 weeks for re-evaluation of the placental edge. Growth ultrasounds per routine for GDM-A2 testing is already planned in [place] Care: Should be able to receive all care in [place]. Return to [facility] as needed. Patient was seen with Zo Tierney RN. Approximately 20 minutes were spent in the care of the patient. Tiarra Panda MD PhD Maternal- Medicine documented in this encounter Plan of Treatment Not on file documented as of this encounter Visit Diagnoses Diagnosis Abnormal Ultrasound Placental Low Lying- Primary Diabetes Mellitus Gestational (HCC) documented in this encounter Additional Health Concerns Assessment Noted Time PHQ-9 Depression Total Score: 4 02/18/20 23 4:19 PM CDT documented as of this encounter Care Teams Candy Decorator Relationship Specialty Start Date End Date None Reported, Pcp PCP - General Family Medicine 06/16/23 documented as of this encounter
--- OUTSIDE RECORDS SUMMARY | 2024-01-14 10:07 | XMS_ITS | Encounter Summary ---
Author Organization [facility] Address [address] [place] [address] Care Team Providers Care Regulatory Compliance Coordinator Name Role Phone None Reported, Pcp Primary Care Provider Unavail able Reason for Referral * Outpatient (Routine) - Closed Specialty Diagnoses / Procedures Referred By Babs de la vega Referred To Contact Diagnoses Encounter For Supervision Of Normal Unspecified Trimester (HCC) Procedures Echo Ariel Jackman M.D. [address] [place] [phone] Referral ID Status Reason Start Date Expiration Date Visits Re quested Visits Authorized [id number] Closed 10/15/2023 10/14/2024 1 1 Reason for Visit * Outpatient (Routine) - Closed Specialty Diagnoses / Procedures Referred By Babs de la vega Referred To Contact Diagnoses Encounter For Supervision Of Normal Unspecified Trimester (HCC) Procedures Echo Ariel Wade M.D. 200 [place] [address] Referral ID Status Reason Start Date Expiration Date Visits Re quested Visits Authorized [id number] Closed 10/15/2023 10/14/2024 1 1 Encounter Details Date Type Department Care Team (Latest Contact Info) Description 11/16/2023 12:59 PM CDT - 11/16/2023 11:59 PM CDT Hospital Encounter Department of Cardiovascular Diseases in [place], [place] [address] [place] [phone] Ariel Jackman M.D. [address] [place] [phone] Encounter For Supervision Of Normal Unspecified [...] on file documented as of this encounter Procedures Procedure Name Priority Date/Time Associated Diagnosis Comments OSEGUERA ECHO 2D WITH COLOR AND DOPPLER Routine 11/16/2023 2:04 PM CDT Encounter For Supervision Of Normal Unspecified Trimester (HCC) documented in this encounter Results * OSEGUERA ECHO 2D WITH COLOR AND DOPPLER (11/16/2023 2:04 PM CDT) Ejection Fraction [facility] Anatomical Region Laterality Modality Echocardiography 11/16/2023 1:12 [...] documented as of this encounter Care Teams Regulatory Compliance Coordinator Relationship Specialty Start Date End Date None Reported, Pcp PCP - General Family Medicine 06/16/23 documented as of this encounter
--- OUTSIDE RECORDS SUMMARY | 2024-01-14 10:07 | XMS_ITS | Encounter Summary ---
Author Organization [facility] Address [address] [place] [address] Care Team Providers Care Payroll Supervisor Name Role Phone None Reported, Pcp Primary Care Provider Unavail able Encounter Details Date Type Department Care Team (Latest Contact Info) Description 12/24/2023 10:59 AM CDT - 12/24/2023 11:59 PM CDT Hospital Encounter Department of Obstetrics and Gynecology in [place], [place] [address] [place] [address] Ariel Gunderson M.D. [address] [place] [phone] Encounter For Supervision Of Normal Unspecified Trimester [...] living situation today? I have a [facility] place to live 02/17/2023 Education Answer [...] in this encounter Results * US OB Follow Up and or Growth and Transvaginal (12/24/2023 12:04 PM CDT) Anatomical Region Laterality Modality Body, Ultrasound OB RST LOS, Ultrasound ARZ LOS N/A Ultrasound Narrative 12/24/2023 12:15 PM CDT CHERYL DAWKINS OB Exam, 12/24/2023 EXAM INFORMATION Patient Name: ??CHERYL DAWKINS : ??1985 Age: ??38 yrs Sex: ??Female Ref Phys: ??ARIEL GUNDERSON Exam Date: 12/24/2023 Procedure: US OB FOLLOW UP GROWTH AND TRANSVAGINAL Exam Site: [facility] OB #3 Plurality: 1 OBHx: [G:(3)] ?F [...] ??Male COMMENTS Preliminary Read by Torri Franz R.Candice.M.S. on 12/24/2023 12:04:23 PM. Procurement Services Manager: ??Torri Franz R.D.M.S. Thank You For This Referral Procedure Note Sherry Ramirez M.D. - 12/24/2023 CHERYL DAWKINS OB Exam, 12/24/2023 EXAM INFORMATION Patient Name: CHERYL DAWKINS : 1985 Age: 38 yrs Sex: Female Ref Phys: ARIEL GUNDERSON Exam Date: 12/24/2023 Procedure: US OB FOLLOW UP GROWTH AND TRANSVAGINAL Exam Site: [facility] OB #3 Plurality: 1 OBHx: [G:(3)] F [...] Male COMMENTS Preliminary Read by Torri Franz R.D.M.S. on 12/24/2023 12:04:23 PM. Procurement Services Manager: Torri Franz R.D.M.S. Thank You For This Referral Ariel Gunderson M.D. IMG OB US PROCEDURES documented in this encounter Visit Diagnoses Diagnosis Encounter For Supervision Of Normal Unspecified Trimester (HCC) documented in this encounter Additional Health Concerns Assessment Noted Time PHQ-9 Depression Total Score: 4 02/18/20 23 4:19 PM CDT documented as of this encounter Care Teams Payroll Supervisor Relationship Specialty Start Date End Date None Reported, Pcp PCP - General Family Medicine 06/16/23 documented as of this encounter
--- OUTSIDE RECORDS SUMMARY | 2024-01-14 10:07 | XMS_ITS | Encounter Summary ---
Author Organization [facility] Address [address] [place] [address] Care Team Providers Care Tonal Regulator Name Role Phone None Reported, Pcp Primary Care Provider Unavail able Encounter Details Date Type Department Care Team (Latest Contact Info) Description 10/15/2023 12:31 PM CDT - 10/15/2023 11:59 PM CDT Hospital Encounter Department of Obstetrics and Gynecology in [place], [place] [address] [place] [address] Jag Lamb M.B.B.S. [address] [place] [address] Multigravida Advanced Maternal Age Affecting Management (HCC) [...] your living situation today? I have a [facility] place to live 02/17/2023 Education Answer [...] by Dixie Maxwell on 10/15/2023 2:27:48 PM. Obstetrics Gyn Physician: ??Dixie Maxwell Thank You For This Referral [...] by Dixie Maxwell on 10/15/2023 2:27:48 PM. Obstetrics Gyn Physician: Dixie Maxwell Thank You For This Referral Jag GANDHI OB US PROCEDUR ES documented in this encounter Visit Diagnoses Diagnosis Multigravida Advanced Maternal Age Affecting Management (HCC) documented in this encounter Additional Health Concerns Assessment Noted Time PHQ-9 Depression Total Score: 4 02/18/20 23 4:19 PM CDT documented as of this encounter Care Teams Tonal Regulator Relationship Specialty Start Date End Date None Reported, Pcp PCP - General Family Medicine 06/16/23 documented as of this encounter
--- OUTSIDE RECORDS SUMMARY | 2024-01-14 10:07 | XMS_ITS ---
Author Organization [facility] Address [address] [place] [address] Care Team Providers Care Financial Counselor Name Role Phone Unavailable Unavailable Unavailable Surgery Details Not on file Complications Check Surgery Details section. Procedure Estimated Blood Loss Check Surgery Details section. Procedure Findings Check Surgery Details section. Procedure Specimens Taken Check Surgery Details section.
--- OUTSIDE RECORDS SUMMARY | 2024-01-14 10:07 | XMS_ITS | Encounter Summary ---
Author Organization [facility] Address [address] [place] [address] Care Team Providers Care Automatic Casting Machine Operator Name Role Phone None Reported, Pcp Primary Care Provider Unavail able Reason for Visit * Outpatient (Routine) - Closed Specialty Diagnoses / Procedures Referred By Babs de la vega Referred To Contact Pediatric Cardiology Diagnoses Encounter For Supervision Of Normal Unspecified Trimester (HCC) Ariel Jackman M.D. [address] [place] [phone] [facility] Referral ID Status Reason Start Date Expiration Date Visits Re quested Visits Authorized [id number] Closed 10/15/2023 04/15/2025 1 1 Encounter Details Date Type Department Care Team (Latest Contact Info) Description 11/16/2023 2:30 PM CDT Comprehensive Visit Division of Pediatric Cardiology in [place], [place] [address] [place] [phone] Favian Hutton Jr., M.D. [address] [place] [phone] Encounter For Supervision Of Normal Unspecified [...] your living situation today? I have a [facility] place to live 02/17/2023 Education Answer [...] documented as of this encounter Care Teams Automatic Casting Machine Operator Relationship Specialty Start Date End Date None Reported, Pcp PCP - General Family Medicine 06/16/23 documented as of this encounter
--- OUTSIDE RECORDS SUMMARY | 2024-01-14 10:07 | XMS_ITS | Clinical Summary ---
Author Organization [facility] Address [place], [place] [address] Care Team Providers Care Dietitian Teacher Name Role Phone Clinic, [facility] Unavailable Mervat Anthony DO Primary Care Provider [phone] Allergies No known active allergies Medications No [...] Positive HBSAG Negative HEPCABY Non Reactive Comment [id number] Non Reactive No Known Allergies OB History [...] Reactive Non Reactive 09/08/2022 5:12 AM CDT [facility] Blood BLOOD SPECIMEN / Unknown Venipuncture / Unknown 09/04/2022 11:25 AM CDT 09/04/2022 11:27 AM CDT Narrative [facility] - 09/08/2022 5:12 AM CDT Performed at: ??[address] - [address] ??[id number] [place]: David Dumont MD, Phone: ??[phone] Karol Arellano MD LABORATORY [facility] ([facility]) [address] [place] [address] * LC HIV-1/O/2, 4TH GENERATION (09/04/2022 11:25 AM CDT) Pathologist [facility] HIV Scr 4th Gen Non Reactive Non Reactive 09/08/2022 6:09 AM CDT [facility] Comment: HIV Negative HIV-1/HIV-2 antibodies and HIV-1 p24 antigen were NOT detected. There is no laboratory evidence of HIV infection. Blood BLOOD SPECIMEN / Unknown Venipuncture / Unknown 09/04/2022 11:25 AM CDT 09/04/2022 11:27 AM CDT Narrative [facility] - 09/08/2022 6:09 AM CDT Performed at: ??01 [facility] [address] [place], [place] ??[id number] [place]: David Dumont MD, Phone: ??[phone] Karol Arellano MD LABORATORY [facility] ([facility]) [address] [place] [address] * HPV HIGH RISK (03/19/2021 4:20 PM CDT) TYPE 16 Negative Negative 03/25/2021 6:14 AM SUPERVISOR CHANNEL PROCESS [facility] LABORATORY-[facility] TRAL LABORATORY TYPE 18 Negative Negative 03/25/2021 6:14 AM SUPERVISOR CHANNEL PROCESS [facility] TRAL LABORATORY OTHER HIGH RISK TYPES Negative Negative 03/25/2021 6:14 AM SUPERVISOR CHANNEL PROCESS [facility] TRAL LABORATORY Other (Cervical) Non-Blood / Unknown 03/19/2021 4:20 PM CDT 03/21/2021 11:42 AM CDT Narrative [facility] LABORATORY-CENTRAL LABORATORY - 03/25/2021 6:14 AM SUPERVISOR CHANNEL PROCESS HPV types 16, 18, 31, 33, 35, 39, 45, 51, 52, 56, 58, 59, 66 and 68 DNA were undetectable or below the pre-set threshold. Methodology: Shahrzad Soila 4800 HPV Test Tawanna Bates MD MICROBIOLOGY [facility] LABORATORY-CENTRAL LABORATORY [address] [place] [address], [place] from Last 3 Months or Most Recently Relevant to Health Maintenance Care Teams Dietitian Teacher Relationship Specialty Start Date End Date [place] [address] PCP - General Family Practice 02/24/23 Clinic, [place] [address] [place] [address] 09/16/22
--- OUTSIDE RECORDS SUMMARY | 2024-01-14 10:07 | XMS_ITS | Referral Summary ---
Author Organization [facility] Address [address] [place] [address] Care Team Providers Care Clinical Training Specialist Name Role Phone None Reported, Pcp Primary Care Provider Unavail able Source Comments Patient records contain information from all sites at [facility]. For routine questions regarding patient records, call [phone] during business hours, M-F 8:00 AM - 5:00 PM Central Time. Record requests for emergency care only can be directed to [phone] at any time.[facility] Encounters Date Type Department Care Team Description 12/24/2023 1:00 PM CDT Routine Department of Obstetrics and Gynecology in [place], [place] [address] [place] [phone] Tiarra Panda M.D., Ph.D. Abnormal Ultrasound Placental Low Lying (Primary Dx); Diabetes Mellitus Gestational (HCC) 12/24/2023 10:59 AM CDT - 12/24/2023 11:59 PM CDT Hospital Encounter Department of Obstetrics and Gynecology in [place], [place] [address] [place] [phone] Ariel Gunderson M.D. Encounter For Supervision Of Normal Unspecified Trimester (HCC) Discharge Disposition: Home or Self Care 11/16/2023 2:30 PM CDT Comprehensive Visit Division of Pediatric Cardiology in [place], [place] [address] [place] [phone] Favian Hutton Jr., M.D. Encounter For Supervision Of Normal Unspecified Trimester (HCC) 11/16/2023 12:59 PM CDT - 11/16/2023 11:59 PM CDT Hospital Encounter Department of Cardiovascular Diseases in [place], [place] [address] [place] [phone] Ariel Gunderson M.D. Encounter For Supervision Of Normal Unspecified Trimester (HCC) Discharge Disposition: Home or Self Care 10/15/2023 2:00 PM CDT Routine Department of Obstetrics and Gynecology in [place], [place] [address] [place] [address] Ariel Gunderson M.D. Encounter For Supervision Of Normal Unspecified Trimester (HCC) (Primary Dx) 10/15/2023 12:31 PM CDT - 10/15/2023 11:59 PM CDT Hospital Encounter Department of Obstetrics and Gynecology in [place], [place] [address] [place] [address] Jag Lamb M.B.B.S. Multigravida Advanced Maternal Age Affecting Management (HCC) Discharge Disposition: Home or Self Care from Last 3 Months Allergies Active Allergy [...] Date Recurrent Loss Not Currently 04/12/2023 12/24/2023 Social History Tobacco Use Types Packs/Day Years [...] your living situation today? I have a [facility] place to live 02/17/2023 Education Answer Date [...] Respiratory Rate 15 06/16/2023 10:[address] SECURITY OFFICER Oxygen Saturation 97% 12/24/2023 12: 09 PM CDT Inhaled Oxygen Concentration - - Weight 67.1 kg (147 lb 14.9 oz) 024 12:09 PM CDT Height 150 cm (4' 11.06) 07/08/2023 2:[address] SECURITY OFFICER Body Mass Index 29.82 07/08/2023 2:[address] SECURITY OFFICER Plan of Treatment Not on file Procedures Procedure Name Priority Date/Time Associated Diagnosis Comments US OB FOLLOW UP GROWTH AND TRANSVAGINAL RAD - Routine (most inpatients and all outpatients) 12/24/2023 12:04 PM CDT Encounter For Supervision Of Normal Unspecified Trimester (HCC) CRAWFORD ECHO 2D WITH COLOR AND DOPPLER Routine 11/16/2023 2:04 PM CDT Encounter For Supervision Of Normal Unspecified Trimester (HCC) US OB ADVANCED LEVEL CRAWFORD AND TRANSVAGINAL RAD - Routine (most inpatients [...] Phys: ??ARIEL GUNDERSON Exam Date: 12/24/2023 Procedure: OB FOLLOW UP GROWTH AND TRANSVAGINAL Exam Site: [facility] OB #3 Plurality: 1 OBHx: [...] Torri Franz R.D.M.S. on 12/24/2023 12:04:23 PM. Enrollment Consultant: ??Torri Franz R.D.M.S. Thank You For This Referral Procedure Note Sherry Ramirez M.D. - 12/24/2023 CHERYL DAWKINS OB Exam, 12/24/2023 EXAM INFORMATION Patient Name: CHERYL DAWKINS : 1985 Age: 38 yrs Sex: Female Ref Phys: ARIEL GUNDERSON Exam Date: 12/24/2023 Procedure: US OB FOLLOW UP GROWTH AND TRANSVAGINAL Exam Site: [facility] OB #3 Plurality: 1 OBHx: [...] FL/AC: 0.21 COMPUTATIONS GA: 29w2d [+/-1.80] Method: HEREBRTH HERBERTH: 03/08/2024 Sono GA: 29w0d [+/-1.80] Method: [...] Torri Franz R.D.M.S. on 12/24/2023 12:04:23 PM. Enrollment Consultant: Torri Franz R.D.MKelleySKelley Thank You For This Referral Ariel Gunderson M.D. IMG OB US PROCEDURES * CRAWFORD ECHO 2D WITH COLOR AND DOPPLER (11/16/2023 2:04 PM CDT) Ejection Fraction [facility] Anatomical Region Laterality Modality Echocardiography 11/16/2023 [...] ECHO PROCEDURES * US OB Advanced Level Crawford and Transvaginal (10/15/2023 2:46 PM CDT) Anatomical Region Laterality Modality Body, Ultrasound OB RST LOS, Ultrasound ARZ LOS N/A Ultrasound Narrative 10/15/2023 2:41 PM CDT CHERYL DAWKINS OB Exam, 10/15/2023 EXAM INFORMATION Patient Name: ??CHERYL DAWKINS : ??1985 Age: ??38 yrs Sex: ??Female Ref Phys: ??JAG LAMB Exam Date: 10/15/2023 Procedure: US OB ADVANCED LEVEL CRAWFORD AND TRANSVAGINAL Plurality: 1 OBHx: [G:(3)] ?F Trm:() Pre:() C-Sec:() Ab-I:() Ab-S:() Ect:() Multi:() Asha:() INDICATIONS FOR SONOGRAPHY Advanced Level Anatomy IMPRESSION A transabdominal detailed ultrasound examination of the fetus and transvaginal scan were ordered and performed secondary to anomaly screening, AMA. Findings: Crawford intrauterine with good activity. Size is consistent [...] by Dixie Maxwell on 10/15/2023 2:27:48 PM. Enrollment Consultant: ??Dixie Maxwell Thank You For This Referral Procedure Note Dulce Cadena M.D. - 10/15/2023 CHERYL DAWKINS OB Exam, 10/15/2023 EXAM INFORMATION Patient Name: CHERYL DAWKINS : 1985 Age: 38 yrs Sex: Female Ref Phys: KHOLOUD ARAB Exam Date: 10/15/2023 Procedure: US OB ADVANCED LEVEL CRAWFORD AND TRANSVAGINAL Plurality: 1 OBHx: [G:(3)] F Trm:() Pre:() C-Sec:() Ab-I:() Ab-S:() Ect:() Multi:() Asha:() INDICATIONS FOR SONOGRAPHY Advanced Level Anatomy IMPRESSION A transabdominal detailed ultrasound examination of the fetus andtransvaginal scan were ordered and performed secondary to anomalyscreening, AMA. Findings: Crawford intrauterine with good activity. Size is consistent [...] by Dixie Maxwell on 10/15/2023 2:27:48 PM. Enrollment Consultant: Dixie Maxwell Thank You For This Referral Jag Velez IMG OB US PROCEDUR ES * HCV Ab Scrn w/Reflex to HCV PCR, Serum (09/04/2022) EXT HCV Ab, S Negative Negative, None detected EXTERNAL INTERFACED LAB Blood (Blood, Venous) 09/04/2022 Ordering Provider External [facility] OBIOLOGY - BLOOD ORDERABLES [facility] [address] [place] [address] from Last 3 Months or Most Recently Relevant to Health Maintenance Advance Directives For more information, please contact: [phone] * Full Code (Latest Code Status on File) Date Activated Date Inactivated Comments 06/16/2023 10:32 AM 06/16/2023 12:59 PM Question Answer Comments Full Code: Discussed * Full Code Date Activated Date Inactivated Comments 06/16/2023 8:09 AM 06/16/2023 10:32 AM Question Answer Comments Full Code: Discussed Care Teams Clinical Training Specialist Relationship Specialty Start Date End Date None Reported, Pcp PCP - General Family Medicine 06/16/23
--- NOTE | 2024-01-14 10:15 | CRLHL7_ITS ---
For Patients: As a result of the Century Cures Act, medical imaging exams and procedure reports are released immediately into your electronic medical record. You may view this report before your referring provider. If you have questions, please contact your health care provider. INDICATION: Gestational diabetes. Estimated delivery date by last menstrual period/IVF 03/08/2024. TECHNIQUE: Ultrasound OB pelvis transabdominal. Real-time antonio-scale imaging of the fetus was performed without stress testing. COMPARISON: 08/20/2023. FINDINGS: Sonographic imaging demonstrates a single living intrauterine gestation. Fetus demonstrates a regular cardiac rate of 152 beats per minute. Fetus has a cephalic orientation. Placenta is anterior in position. Focal hypoechoic region within the placenta measuring 2.4 x 1.9 x 2.5 cm without definite internal color Doppler blood flow. Biometric measurements: Biparietal diameter: 7.4 cm (29 weeks 4 days, less than 3rd percentile). Head circumference: 29.4 cm (32 weeks 3 days, 17th percentile). Abdominal circumference: 30.1 cm (34 weeks 0 days, 91st percentile). Femur length: 6.2 cm (32 weeks 1 day, 33rd percentile). Estimated weight: 2075 grams, 60th percentile. Estimated ultrasound age by today`s measurements is 32 weeks 0 days with estimated date of delivery 03/10/2024. Amniotic fluid volume appears normal with single deepest vertical pocket measuring 6.8 cm. Biophysical profile: Two points awarded each for gross body movements, tone and amniotic fluid. Zero points awarded for breathing movements. Intermittent episodes of breathing were reported; however, no sustained breathing for at least 30 seconds visualized during the course of the examination. IMPRESSION: 1. Single viable intrauterine with a biophysical profile 6/8. 2. Sonographic gestational age of 32 weeks 0 days with estimated date of delivery 03/10/2024. Estimated weight is 2075 grams. 3. Possible placental coleman measuring up to 2.5 cm. Recommend attention on follow-up examinations. Dictated by Amy Vieyra MD @ 01/14/2024 11:13:55 AM (Electronically Signed)
== END 2024-01-14 10:05 | disposition home or self-care (01) ==
LOC: US 10:04
PROVIDERS: PCP Family Medicine; Visit Provider Physician Assistant
DX: O24.410 Gestational diabetes mellitus in pregnancy, diet controlled (principal); O09.513 Supervision of elderly primigravida, third trimester; Z3A.32 32 weeks gestation of pregnancy
CPT/HCPCS: 76816; 76819

== ENCOUNTER 2024-01-21 09:05 | Outpatient (CLI) | payer OTHER, SELFPAY ==
--- OUTSIDE RECORDS SUMMARY | 2024-01-21 09:07 | XMS_ITS | Encounter Summary ---
Author Organization [facility] Address [address] [place] [address] Care Team Providers Care Job Lithographer Name Role Phone None Reported, Pcp Primary Care Provider Unavail able Encounter Details Date Type Department Care Team (Latest Contact Info) Description 12/24/2023 10:59 AM CDT - 12/24/2023 11:59 PM CDT Hospital Encounter Department of Obstetrics and Gynecology in [place], [place] [address] [place] [address] Ariel Gunderson M.D. [address] [place] [address] Encounter For Supervision Of Normal Unspecified Trimester [...] your living situation today? I have a [facility] place to live 02/17/2023 Education Answer Date [...] FOLLOW UP GROWTH AND TRANSVAGINAL Exam Site: [facility] OB #3 Plurality: 1 OBHx: [G:(3)] [...] Torri Franz R.Candice.M.S. on 12/24/2023 12:04:23 PM. Huc Ob: ??Torri rFanz R.D.M.S. Thank You For This Referral Procedure Note Sherry Ramirez M.D. - 12/24/2023 CHERYL DAWKINS OB Exam, 12/24/2023 EXAM INFORMATION Patient Name: CHERYL DAWKINS : 1985 Age: 38 yrs Sex: Female Ref Phys: ARIEL GUNDERSON Exam Date: 12/24/2023 Procedure: US OB FOLLOW UP GROWTH AND TRANSVAGINAL Exam Site: [facility] OB #3 Plurality: 1 OBHx: [G:(3)] [...] Torri Franz R.D.M.S. on 12/24/2023 12:04:23 PM. Huc Ob: Torri Franz R.D.M.S. Thank You For This Referral Ariel Gunderson M.D. IMG OB US PROCEDURES documented in this encounter Visit Diagnoses Diagnosis Encounter For Supervision Of Normal Unspecified Trimester (HCC) documented in this encounter Additional Health Concerns Assessment Noted Time PHQ-9 Depression Total Score: 4 02/18/20 23 4:19 PM CDT documented as of this encounter Care Teams Job Lithographer Relationship Specialty Start Date End Date None Reported, Pcp PCP - General Family Medicine 06/16/23 documented as of this encounter
--- OUTSIDE RECORDS SUMMARY | 2024-01-21 09:07 | XMS_ITS ---
Author Organization [facility] Address [address] [place] [address] Care Team Providers Care Caving Guide Name Role Phone Unavailable Unavailable Unavailable Surgery Details Not on file Complications Check Surgery Details section. Procedure Estimated Blood Loss Check Surgery Details section. Procedure Findings Check Surgery Details section. Procedure Specimens Taken Check Surgery Details section.
--- OUTSIDE RECORDS SUMMARY | 2024-01-21 09:07 | XMS_ITS | Encounter Summary ---
Author Organization [facility] Address [address] [place] [address] Care Team Providers Care Dentistry Teacher Name Role Phone None Reported, Pcp Primary Care Provider Unavail able Encounter Details Date Type Department Care Team (Latest Contact Info) Description 10/15/2023 12:31 PM CDT - 10/15/2023 11:59 PM CDT Hospital Encounter Department of Obstetrics and Gynecology in [place], [place] [address] [place] [address] Jag Lamb M.B.B.S. [address] [place] [address] Multigravida Advanced Maternal Age Affecting Management (HCC) [...] your living situation today? I have a [facility] place to live 02/17/2023 Education [...] by Dixie Maxwell on 10/15/2023 2:27:48 PM. Art Class Model: ??Dixie Maxwell Thank You For This Referral [...] by Dixie Maxwell on 10/15/2023 2:27:48 PM. Art Class Model: Dixie Maxwell Thank You For This Referral Jag GANDHI OB US PROCEDUR ES documented in this encounter Visit Diagnoses Diagnosis Multigravida Advanced Maternal Age Affecting Management (HCC) documented in this encounter Additional Health Concerns Assessment Noted Time PHQ-9 Depression Total Score: 4 02/18/20 23 4:19 PM CDT documented as of this encounter Care Teams Dentistry Teacher Relationship Specialty Start Date End Date None Reported, Pcp PCP - General Family Medicine 06/16/23 documented as of this encounter
--- OUTSIDE RECORDS SUMMARY | 2024-01-21 09:07 | XMS_ITS | Clinical Summary ---
Author Organization [facility] Address [place], [place] [address] Care Team Providers Care Rail Switchman Name Role Phone [facility], [employer] [facility] Unavailable Mervat Anthony DO Primary Care Provider [phone] Allergies No known active allergies Medications No [...] Positive HBSAG Negative HEPCABY Non Reactive Comment [id number] Non Reactive No Known Allergies OB History [...] Health Maintenance Due Date Last Done Comments Depression screening for age 12+ 06/05/2023 06/05/2022, 06/04/2022, 03/19/2021, Additional history exists BMI (ht and wt on same day) for age 18+ 09/05/2023 09/04/2022, 06/04/2022, 03/19/2021, Additional history exists COVID-19 vaccine series ( season) 2024 03/17/2022, 06/12/2021, 09/19/2020, Additional history exists Influenza for age 9-49 [...] Reactive Non Reactive 09/08/2022 5:[address] [facility] ESOTERIC TESTING (CET) Blood BLOOD SPECIMEN / Unknown Venipuncture / Unknown 09/04/2022 11:25 AM CDT 09/04/2022 11:27 AM CDT Narrative [facility] ESOTERIC TESTING (CET) - 09/08/2022 5:12 AM CDT Performed at: ??[address] ??[id number] Numberer And Wirer: David Dumont MD, Phone: ??[phone] Karol Arellano MD LABORATORY [facility] ([facility]) [address] [place] [address] * LC HIV-1/O/2, 4TH GENERATION (09/04/2022 11:25 AM CDT) Pathologist [facility] HIV Scr 4th Gen Non Reactive Non Reactive 09/08/2022 6:[address] [facility] ESOTERIC TESTING (CET) Comment: HIV Negative HIV-1/HIV-2 antibodies and HIV-1 p24 antigen were NOT detected. There is no laboratory evidence of HIV infection. Blood BLOOD SPECIMEN / Unknown Venipuncture / Unknown 09/04/2022 11:25 AM CDT 09/04/2022 11:27 AM CDT Narrative [facility] ESOTERIC TESTING (CET) - 09/08/2022 6:09 AM CDT Performed at: ??01 [facility] [address] [place], [place] ??[id number] Numberer And Wirer: David Dumont MD, Phone: ??[phone] Karol Arellano MD LABORATORY [facility] ESOTERIC TEST[facility] ([facility]) [address] [place] [address] * HPV HIGH RISK (03/19/2021 4:20 PM CDT) TYPE 16 Negative Negative 03/25/2021 6:14 AM CLERICAL SECRETARY [facility] LABORATORY-[facility] TRAL LABORATORY TYPE 18 Negative Negative 03/25/2021 6:14 AM CLERICAL SECRETARY [facility] TRAL LABORATORY OTHER HIGH RISK TYPES Negative Negative 03/25/2021 6:14 AM CLERICAL SECRETARY [facility] TRAL LABORATORY Other (Cervical) Non-Blood / Unknown 03/19/2021 4:20 PM CDT 03/21/2021 11:42 AM CDT Narrative [facility] LABORATORY-CENTRAL LABORATORY - 03/25/2021 6:14 AM CLERICAL SECRETARY HPV types 16, 18, 31, 33, 35, 39, 45, 51, 52, 56, 58, 59, 66 and 68 DNA were undetectable or below the pre-set threshold. Methodology: Shahrzad Soila 4800 HPV Test Tawanna Bates MD MICROBIOLOGY [facility] LABORATORY-CENTRAL LABORATORY [address] [place] [address], [place] from Last 3 Months or Most Recently Relevant to Health Maintenance Care Teams Rail Switchman Relationship Specialty Start Date End Date [place] [address] [place] [address] PCP - General Family Practice 02/24/23 Clinic, [place] [address] [place] [address] 09/16/22
--- OUTSIDE RECORDS SUMMARY | 2024-01-21 09:07 | XMS_ITS | Encounter Summary ---
Author Organization [facility] Address [address] [place] [address] Care Team Providers Care Arborist Name Role Phone None Reported, Pcp Primary Care Provider Unavail able Reason for Visit * Outpatient (Routine) - Closed Specialty Diagnoses / Procedures Referred By Babs de la vega Referred To Contact Pediatric Cardiology Diagnoses Encounter For Supervision Of Normal Unspecified Trimester (HCC) Ariel Jackman M.D. [address] [place] [phone] [facility] Referral ID Status Reason Start Date Expiration Date Visits Re quested Visits Authorized [id number] Closed 10/15/2023 04/15/2025 1 1 Encounter Details Date Type Department Care Team (Latest Contact Info) Description 11/16/2023 2:30 PM CDT Comprehensive Visit Division of Pediatric Cardiology in [place], [place] [address] [place] [phone] Favian Hutton Jr., M.D. [address] [place] [phone] Encounter For Supervision Of Normal Unspecified [...] documented as of this encounter Care Teams Arborist Relationship Specialty Start Date End Date None Reported, Pcp PCP - General Family Medicine 06/16/23 documented as of this encounter
--- OUTSIDE RECORDS SUMMARY | 2024-01-21 09:07 | XMS_ITS | Encounter Summary ---
Author Organization [facility] Address [address] [place] [address] Care Team Providers Care Tamale Machine Feeder Name Role Phone None Reported, Pcp Primary Care Provider Unavail able Reason for Visit * Outpatient (Routine) - Closed Specialty Diagnoses / Procedures Referred By Babs de la vega Referred To Contact Obstetrics and Gynecology Ariel Jackman M.D. [address] [place] [address] [facility] Referral ID Status Reason Start Date Expiration Date Visits Re quested Visits Authorized [id number] Closed 10/15/2023 04/15/2025 1 1 Encounter Details Date Type Department Care Team (Latest Contact Info) Description 12/24/2023 1:00 PM CDT Routine Department of Obstetrics and Gynecology in [place], [place] [address] [place] [address] Tiarra Panda M.D., Ph.D. [address] [place] [address] Abnormal Ultrasound Placental Low Lying (Primary [...] your living situation today? I have a [facility] place to live 02/17/2023 Education Answer [...] Body Mass Index 29.82 07/08/2023 2:27 PM FUEL TECHNICIAN documented in this encounter Progress Notes * Tiarra Panda M.D., Ph.D. - 12/24/2023 1:00 PM CDT MATERNAL MEDICINE SUBJECTIVE Justin Dawkins is a 38 y.o. at 29w2d who returns to [facility] for ultrasound to evaluate placental location. Estimated Date of Delivery: 03/08/24. Justin Dawkins receives her care in [place]. She underwent IVF here at [facility]; therefore, had her anatomy survey completed here [...] all of her care and delivery in [place]. Plan/Recommendations: Surveillance: A repeat ultrasound is recommended in 4-6 weeks for re-evaluation of the placental edge. Growth ultrasounds per routine for GDM-A2 testing is already planned in [place] Care: Should be able to receive all care in [place]. Return to [facility] as needed. Patient was seen with [...] documented as of this encounter Care Teams Tamale Machine Feeder Relationship Specialty Start Date End Date None Reported, Pcp PCP - General Family Medicine 06/16/23 documented as of this encounter
--- OUTSIDE RECORDS SUMMARY | 2024-01-21 09:07 | XMS_ITS | Encounter Summary ---
Author Organization [facility] Address [address] [place] [address] Care Team Providers Care Student Financial Aid Manager Name Role Phone None Reported, Pcp Primary Care Provider Unavail able Reason for Visit * Reason Onset Date Comments MFM Triage 09/21/2023 Encounter Details Date Type Department Care Team (Late st Contact Info) Description 09/21/2023 Clinical Communication Department of Obstetrics and Gynecology in [place], [place] [address] [place] [address] Prescheduling, Provider MFM Triage Social History Tobacco [...] living situation today? I have a [facility] place to live 02/17/2023 Estimated Date [...] documented as of this encounter Care Teams Student Financial Aid Manager Relationship Specialty Start Date End Date None Reported, Pcp PCP - General Family Medicine 06/16/23 documented as of this encounter
--- OUTSIDE RECORDS SUMMARY | 2024-01-21 09:07 | XMS_ITS | Encounter Summary ---
Author Organization [facility] Address [address] [place] [address] Care Team Providers Care Construction Producer Name Role Phone None Reported, Pcp Primary Care Provider Unavail able Reason for Referral * Outpatient (Routine) - Closed Specialty Diagnoses / Procedures Referred By Babs de la vega Referred To Contact Obstetrics and Gynecology Ariel Gunderson M.D. [address] [place] [address] [facility] Referral ID Status Reason Start Date Expiration Date Visits Re quested Visits Authorized [id number] Closed 10/15/2023 04/15/2025 1 1 Scheduling Instructions Augustina * Outpatient (Routine) - Closed Specialty Diagnoses / Procedures Referred By Babs de la vega Referred To Contact Diagnoses Encounter For Supervision Of Normal Unspecified Trimester (HCC) Procedures Echo Ariel Gunderson M.D. [address] [place] [address] Referral ID Status Reason Start Date Expiration Date Visits Re quested Visits Authorized [id number] Closed 10/15/2023 10/14/2024 1 1 * Outpatient (Routine) - Closed Specialty Diagnoses / Procedures Referred By Babs de la vega Referred To Contact Pediatric Cardiology Diagnoses Encounter For Supervision Of Normal Unspecified Trimester (HCC) Ariel Gunderson M.D. [address] [place] [address] [facility] Referral ID Status Reason Start Date Expiration Date Visits Re quested Visits Authorized [id number] Closed 10/15/2023 04/15/2025 1 1 Reason for Visit * Appointment Request (Routine) - Authorized Specialty Diagnoses / Procedures Referred By Contac t Referred To Contact Maternal and Medicine Diagnoses Tuberculosis Latent PreDiabetes Recurrent Loss First Trimester (HCC) Normal Not First (HCC) Lana Lemon M.D. [address] [place] [address] Referral ID Status Reason Start Date Expiration Date V isits Requested Visits Authorized [id number] Authorized 09/21/2023 09/20/2024 2 2 Encounter Details Date Type Department Care Team (Latest Contact Info) Description 10/15/2023 2:00 PM CDT Routine Department of Obstetrics and Gynecology in [place], [place] [address] [place] [address] Ariel Gunderson M.D. [address] [place] [address] Encounter For Supervision Of Normal Unspecified Trimester [...] your living situation today? 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 Ultrasound today demonstrates a crawford intrauterine . [...] care: Antepartum: echocardiography at 22-24 weeks (in [place]). Repeat obstetrical ultrasound at 28-32 weeks to evaluate placental location (in [place]), then every 4 weeks thereafter to monitor [...] N/A Ultrasound Narrative 12/24/2023 12:15 PM CDT CHEYRL DAWKINS OB Exam, 12/24/2023 EXAM INFORMATION Patient Name: ??CHAR CHERYL : ??1985 Age: ??38 yrs Sex: ??Female Ref Phys: ??ARIEL GUNDERSON Exam Date: 12/24/2023 Procedure: US OB FOLLOW UP GROWTH AND TRANSVAGINAL Exam Site: [facility] OB #3 Plurality: 1 OBHx: [G:(3)] [...] Torri Franz REsther.M.S. on 12/24/2023 12:04:23 PM. [employer] Ii Farmworker: ??Torri Franz R.D.M.SKelley Thank You For This Referral Procedure Note Sherry Ramirez M.D. - 12/24/2023 CHERYL DAWKINS OB Exam, 12/24/2023 EXAM INFORMATION Patient Name: CHERYL DAWKINS : 1985 Age: 38 yrs Sex: Female Ref Phys: ARIEL GUNDERSON Exam Date: 12/24/2023 Procedure: US OB FOLLOW UP GROWTH AND TRANSVAGINAL Exam Site: [facility] OB #3 Plurality: 1 OBHx: [G:(3)] [...] Torri Franz R.D.MKelleySKelley on 12/24/2023 12:04:23 PM. D[employer]ified Cro[employer] Ii Farmworker: Torri Franz R.D.M.S. Thank You For This [...] documented as of this encounter Care Teams Construction Producer Relationship Specialty Start Date End Date None Reported, Pcp PCP - General Family Medicine 06/16/23 documented as of this encounter
--- OUTSIDE RECORDS SUMMARY | 2024-01-21 09:07 | XMS_ITS | Clinical Summary ---
Author Organization [facility] Address [address] [place] [address] Care Team Providers Care Perforating Machine Operator Name Role Phone None Reported, Pcp Primary Care Provider Unavail able Source Comments Patient records contain information from all sites at [facility]. For routine questions regarding patient records, call [phone] during business hours, M-F 8:00 AM - 5:00 PM Central Time. Record requests for emergency care only can be directed to [phone] at any time.[facility] Allergies Active Allergy Reactions Criticality Noted [...] Routine Department of Obstetrics and Gynecology in [place], [place] [address] [place] [address] Tiarra Panda M.D., Ph.D. Abnormal Ultrasound Placental Low Lying (Primary Dx); Diabetes Mellitus Gestational (HCC) 12/24/2023 10:59 AM CDT - 12/24/2023 11:59 PM CDT Hospital Encounter Department of Obstetrics and Gynecology in [place], [place] [address] [place] [address] Ariel Gunderson M.D. Encounter For Supervision Of Normal Unspecified Trimester (HCC) Discharge Disposition: Home or Self Care 11/16/2023 2:30 PM CDT Comprehensive Visit Division of Pediatric Cardiology in [place], [place] [address] [place] [address] Favian Hutton Jr., M.D. Encounter For Supervision Of Normal Unspecified Trimester (HCC) 11/16/2023 12:59 PM CDT - 11/16/2023 11:59 PM CDT Hospital Encounter Department of Cardiovascular Diseases in [place], [place] [address] [place] [address] Ariel Gunderson M.D. Encounter For Supervision Of [...] your living situation today? I have a [facility] place to live 02/17/2023 Education [...] Respiratory Rate 15 06/16/2023 10:2 2 AM HOME DEMONSTRATOR Oxygen Saturation 97% 12/24/2023 12: 09 PM CDT Inhaled Oxygen Concentration - - Weight 67.1 kg (147 lb 14.9 oz) 024 12:09 PM CDT Height 150 cm (4' 11.06) 07/08/2023 2:27 PM HOME DEMONSTRATOR Body Mass Index 29.82 07/08/2023 2:27 PM HOME DEMONSTRATOR Plan of Treatment Health Maintenance Due Date [...] For Supervision Of Normal Unspecified Trimester (HCC) HCV AB SCRN W/REFLEX TO HCV PCR, S Routine 09/04/2022 from Last 3 Months or Most Recently Relevant to Health Maintenance Results * US OB Follow Up and or Growth and Transvaginal (12/24/2023 12:04 PM CDT) Anatomical Region Laterality Modality Body, Ultrasound OB RST LOS, Ultrasound ARZ LOS N/A Ultrasound Narrative 12/24/2023 12:15 PM CDT JUSTIN DAWKINS OB Exam, 12/24/2023 EXAM INFORMATION Patient Name: ??JUSTIN DAWKINS : ??1985 Age: ??38 yrs Sex: ??Female Ref Phys: ??ARIEL GUNDERSON Exam Date: 12/24/2023 Procedure: OB FOLLOW UP GROWTH AND TRANSVAGINAL Exam Site: [facility] OB #3 Plurality: 1 OBHx: [G:(3)] ?F [...] ??Male COMMENTS Preliminary Read by Torri Franz R.D.M.SKelley on 12/24/2023 12:04:23 PM. Mixing Machine Tender: ??Torri Franz R.D.MKelleySKelley Thank You For This Referral Procedure Note Sherry Ramirez M.D. - 12/24/2023 JUSTIN DAWKINS OB Exam, 12/24/2023 EXAM INFORMATION Patient Name: JUSTIN DAWKINS : 1985 Age: 38 yrs Sex: Female Ref Phys: ARIEL GUNDERSON Exam Date: 12/24/2023 Procedure: US OB FOLLOW UP GROWTH AND TRANSVAGINAL Exam Site: [facility] OB #3 Plurality: 1 OBHx: [G:(3)] F [...] Torri Franz R.D.M.S. on 12/24/2023 12:04:23 PM. Mixing Machine Tender: Torri Franz R.D.M.S. Thank You For This Referral Ariel Gunderson M.D. IMG OB US PROCEDURES * CRAWFORD ECHO 2D WITH COLOR AND DOPPLER (11/16/2023 2:04 PM CDT) Ejection Fraction [facility] Anatomical Region Laterality Modality Echocardiography 11/16/2023 [...] Ariel Gunderson M.D. CV ECHO PROCEDURES * HCV Ab Scrn w/Reflex to HCV PCR, Serum (09/04/2022) EXT HCV Ab, S Negative Negative, None detected EXTERNAL INTERFACED LAB Blood (Blood, Venous) 09/04/2022 Ordering Provider External [facility] MICR OBIOLOGY - BLOOD ORDERABLES EXTERNAL INTER[facility]ACED LAB [address] [place] [address] from Last 3 Months or Most Recently Relevant to Health Maintenance Advance Directives For more information, please contact: [phone] * Full Code (Latest Code Status on File) Date Activated Date Inactivated Comments 06/16/2023 10:32 AM 06/16/2023 12:59 PM Question Answer Comments Full Code: Discussed * Full Code Date Activated Date Inactivated Comments 06/16/2023 8:09 AM 06/16/2023 10:32 AM Question Answer Comments Full Code: Discussed Care Teams Perforating Machine Operator Relationship Specialty Start Date End Date None Reported, Pcp PCP - General Family Medicine 06/16/23
--- OUTSIDE RECORDS SUMMARY | 2024-01-21 09:07 | XMS_ITS | Encounter Summary ---
Author Organization [facility] Address [address] [place] [address] Care Team Providers Care It Applications Manager Name Role Phone None Reported, Pcp Primary Care Provider Unavail able Reason for Referral * Outpatient (Routine) - Closed Specialty Diagnoses / Procedures Referred By Babs de la vega Referred To Contact Diagnoses Encounter For Supervision Of Normal Unspecified Trimester (HCC) Procedures Echo Ariel Jackman M.D. [address] [place] [phone] Referral ID Status Reason Start Date Expiration Date Visits Re quested Visits Authorized [id number] Closed 10/15/2023 10/14/2024 1 1 Reason for Visit * Outpatient (Routine) - Closed Specialty Diagnoses / Procedures Referred By Babs de la vega Referred To Contact Diagnoses Encounter For Supervision Of Normal Unspecified Trimester (HCC) Procedures Echo Ariel Jackman M.D. 200 [place] [address] Referral ID Status Reason Start Date Expiration Date Visits Re quested Visits Authorized [id number] Closed 10/15/2023 10/14/2024 1 1 Encounter Details Date Type Department Care Team (Latest Contact Info) Description 11/16/2023 12:59 PM CDT - 11/16/2023 11:59 PM CDT Hospital Encounter Department of Cardiovascular Diseases in [place], [place] [address] [place] [phone] Ariel Jackman M.D. [address] [place] [phone] Encounter For Supervision Of Normal Unspecified [...] DOPPLER (11/16/2023 2:04 PM CDT) Ejection Fraction [facility] Anatomical Region Laterality Modality Echocardiography 11/16/2023 1:12 [...] documented as of this encounter Care Teams It Applications Manager Relationship Specialty Start Date End Date None Reported, Pcp PCP - General Family Medicine 06/16/23 documented as of this encounter
--- OUTSIDE RECORDS SUMMARY | 2024-01-21 09:07 | XMS_ITS | Referral Summary ---
Author Organization [facility] Address [address] [place] [address] Care Team Providers Care Police Dispatcher Name Role Phone None Reported, Pcp Primary Care Provider Unavail able Source Comments Patient records contain information from all sites at [facility]. For routine questions regarding patient records, call [phone] during business hours, M-F 8:00 AM - 5:00 PM Central Time. Record requests for emergency care only can be directed to [phone] at any time.[facility] Encounters Date Type Department Care Team Description 12/24/2023 1:00 PM CDT Routine Department of Obstetrics and Gynecology in [place], [place] [address] [place] [phone] Tiarra Panda M.D., Ph.D. Abnormal Ultrasound Placental Low Lying (Primary Dx); Diabetes Mellitus Gestational (HCC) 12/24/2023 10:59 AM CDT - 12/24/2023 11:59 PM CDT Hospital Encounter Department of Obstetrics and Gynecology in [place], [place] [address] [place] [phone] Ariel Gunderson M.D. Encounter For Supervision Of Normal Unspecified Trimester (HCC) Discharge Disposition: Home or Self Care 11/16/2023 2:30 PM CDT Comprehensive Visit Division of Pediatric Cardiology in [place], [place] [address] [place] [phone] Favian Hutton Jr., M.D. Encounter For Supervision Of Normal Unspecified Trimester (HCC) 11/16/2023 12:59 PM CDT - 11/16/2023 11:59 PM CDT Hospital Encounter Department of Cardiovascular Diseases in [place], [place] [address] [place] [phone] Ariel Gunderson M.D. Encounter For Supervision Of [...] living situation today? I have a [facility] place to live 02/17/2023 Education Answer [...] Respiratory Rate 15 06/16/2023 10:2 2 AM CERTIFIED SURGICAL TECH/FIRST ASSISTANT Oxygen Saturation 97% 12/24/2023 12: 09 PM CDT Inhaled Oxygen Concentration - - Weight 67.1 kg (147 lb 14.9 oz) 024 12:09 PM CDT Height 150 cm (4' 11.06) 07/08/2023 2:27 PM CERTIFIED SURGICAL TECH/FIRST ASSISTANT Body Mass Index 29.82 07/08/2023 2:27 PM CERTIFIED SURGICAL TECH/FIRST ASSISTANT Plan of Treatment Not on file Procedures [...] GROWTH AND TRANSVAGINAL Exam Site: [facility] OB #3 Plurality: 1 OBHx: [G:(3)] [...] ??Male COMMENTS Preliminary Read by Torri Franz REsther.M.SKelley on 12/24/2023 12:04:23 PM. Table Games Shift Manager: ??Torri Franz R.D.M.SKelley Thank You For This Referral Procedure Note Sherry Ramirez M.D. - 12/24/2023 CHERYL DAWKINS OB Exam, 12/24/2023 EXAM INFORMATION Patient Name: CHERYL DAWKINS : 1985 Age: 38 yrs Sex: Female Ref Phys: ARIEL GUNDERSON Exam Date: 12/24/2023 Procedure: US OB FOLLOW UP GROWTH AND TRANSVAGINAL Exam Site: [facility] OB #3 Plurality: 1 OBHx: [G:(3)] [...] Male COMMENTS Preliminary Read by Torri Franz R.D.M.SeKlley on 12/24/2023 12:04:23 PM. Table Games Shift Manager: Torri Franz R.D.M.S. Thank You For This Referral Ariel Gunderson M.D. IMG OB US PROCEDURES * CRAWFORD ECHO 2D WITH COLOR AND DOPPLER (11/16/2023 2:04 PM CDT) [facility] Signature Ejection Fraction [facility] Anatomical Region Laterality Modality Echocardiography [...] OBIOLOGY - BLOOD ORDERABLES EXTERNAL INTERFACED LAB [address] [place] [address] from Last 3 Months or Most Recently Relevant to Health Maintenance Advance Directives For more information, please contact: [phone] * Full Code (Latest Code Status on File) Date Activated Date Inactivated Comments 06/16/2023 10:32 AM 06/16/2023 12:59 PM Question Answer Comments Full Code: Discussed * Full Code Date Activated Date Inactivated Comments 06/16/2023 8:09 AM 06/16/2023 10:32 AM Question Answer Comments Full Code: Discussed Care Teams Police Dispatcher Relationship Specialty Start Date End Date None Reported, Pcp PCP - General Family Medicine 06/16/23
--- NOTE | 2024-01-21 09:15 | CRLHL7_ITS ---
For Patients: As a result of the Century Cures Act, medical imaging exams and procedure reports are released immediately into your electronic medical record. You may view this report before your referring provider. If you have questions, please contact your health care provider. INDICATION: recheck on placenta lower edge COMPARISON: 01/14/2024 TECHNIQUE: Real time antonio scale imaging of the fetus was performed. Without non-stress testing. FINDINGS: Sonographic imaging demonstrates a single living intrauterine gestation. Fetus demonstrates a regular cardiac rate of 165 beats per minute. Fetus has a vertex position. The amniotic fluid volume appears normal and there is a single deepest pocket measurement of 5.8 cm. The fetus was active and demonstrated normal breathing movements. There was normal flexion and extension of the trunk and extremities. The edge of the placenta is located 3.5 cm from the internal cervical os with transvaginal imaging. Placenta is anterior. IMPRESSION: Normal biophysical profile score of 8 out of 8. Placental edge is located 3.5 cm from the internal cervical os with transvaginal imaging. Dictated by Nicolás Kothari MD @ 01/21/2024 11:33:29 AM (Electronically Signed)
== END 2024-01-21 09:06 | disposition home or self-care (01) ==
LOC: US 09:05
PROVIDERS: PCP Family Medicine; Visit Provider Physician Assistant
DX: O09.523 Supervision of elderly multigravida, third trimester (principal); Z3A.33 33 weeks gestation of pregnancy
CPT/HCPCS: 76817; 76819

== ENCOUNTER 2024-01-28 09:00 | Outpatient (CLI) | payer OTHER, SELFPAY ==
--- OUTSIDE RECORDS SUMMARY | 2024-01-28 09:02 | XMS_ITS | Encounter Summary ---
Author Organization [facility] Address [address] [place] [address] Care Team Providers Care Semiautomatic Taper Operator Name Role Phone None Reported, Pcp Primary Care Provider Unavail able Reason for Visit * Outpatient (Routine) - Closed Specialty Diagnoses / Procedures Referred By Babs de la vega Referred To Contact Pediatric Cardiology Diagnoses Encounter For Supervision Of Normal Unspecified Trimester (HCC) Ariel Jackman M.D. [address] [place] [phone] [facility] Referral ID Status Reason Start Date Expiration Date Visits Re quested Visits Authorized [id number] Closed 10/15/2023 04/15/2025 1 1 Encounter Details Date Type Department Care Team (Latest Contact Info) Description 11/16/2023 2:30 PM CDT Comprehensive Visit Division of Pediatric Cardiology in [place], [place] [address] [place] [phone] Favian Hutton Jr., M.D. [address] [place] [phone] Encounter For Supervision Of Normal Unspecified [...] your living situation today? I have a [facility] place to live 02/17/2023 Education [...] documented as of this encounter Care Teams Semiautomatic Taper Operator Relationship Specialty Start Date End Date None Reported, Pcp PCP - General Family Medicine 06/16/23 documented as of this encounter
--- OUTSIDE RECORDS SUMMARY | 2024-01-28 09:02 | XMS_ITS | Encounter Summary ---
Author Organization [facility] Address [address] [place] [address] Care Team Providers Care Automotive Maintenance Technician Name Role Phone None Reported, Pcp Primary Care Provider Unavail able Encounter Details Date Type Department Care Team (Latest Contact Info) Description 12/24/2023 10:59 AM CDT - 12/24/2023 11:59 PM CDT Hospital Encounter Department of Obstetrics and Gynecology in [place], [place] [address] [place] [address] Ariel Gunderson M.D. [address] [place] [address] Encounter For Supervision Of Normal Unspecified Trimester [...] your living situation today? I have a [facility] place to live 02/17/2023 Education Answer [...] FOLLOW UP GROWTH AND TRANSVAGINAL Exam Site: [facility] OB #3 Plurality: 1 OBHx: [G:(3)] ?F [...] Torri Franz R.Candice.M.S. on 12/24/2023 12:04:23 PM. Supply Chain Director: ??Torri Franz R.D.M.S. Thank You For This Referral Procedure Note Sherry Ramirez M.D. - 12/24/2023 CHERYL DAWKINS OB Exam, 12/24/2023 EXAM INFORMATION Patient Name: CHERYL DAWKINS : 1985 Age: 38 yrs Sex: Female Ref Phys: ARIEL GUNDERSON Exam Date: 12/24/2023 Procedure: US OB FOLLOW UP GROWTH AND TRANSVAGINAL Exam Site: [facility] OB #3 Plurality: 1 OBHx: [G:(3)] F [...] Torri Franz R.D.M.S. on 12/24/2023 12:04:23 PM. Supply Chain Director: Torri Franz R.D.M.S. Thank You For This Referral Ariel Gunderson M.D. IMG OB US PROCEDURES documented in this encounter Visit Diagnoses Diagnosis Encounter For Supervision Of Normal Unspecified Trimester (HCC) documented in this encounter Additional Health Concerns Assessment Noted Time PHQ-9 Depression Total Score: 4 02/18/20 23 4:19 PM CDT documented as of this encounter Care Teams Automotive Maintenance Technician Relationship Specialty Start Date End Date None Reported, Pcp PCP - General Family Medicine 06/16/23 documented as of this encounter
--- OUTSIDE RECORDS SUMMARY | 2024-01-28 09:02 | XMS_ITS | Clinical Summary ---
Author Organization [facility] Address [address] [place] [address] Care Team Providers Care Plant Production Manager Name Role Phone None Reported, Pcp Primary Care Provider Unavail able Source Comments Patient records contain information from all sites at [facility]. For routine questions regarding patient records, call [phone] during business hours, M-F 8:00 AM - 5:00 PM Central Time. Record requests for emergency care only can be directed to [phone] at any time.[facility] Allergies Active Allergy Reactions Criticality Noted Date [...] Routine Department of Obstetrics and Gynecology in [place], [place] [address] [place] [address] Tiarra Panda M.D., Ph.D. Abnormal Ultrasound Placental Low Lying (Primary Dx); Diabetes Mellitus Gestational (HCC) 12/24/2023 10:59 AM CDT - 12/24/2023 11:59 PM CDT Hospital Encounter Department of Obstetrics and Gynecology in [place], [place] [address] [place] [address] Ariel Gunderson M.D. Encounter For Supervision Of Normal Unspecified Trimester (HCC) Discharge Disposition: Home or Self Care 11/16/2023 2:30 PM CDT Comprehensive Visit Division of Pediatric Cardiology in [place], [place] [address] [place] [address] Favian Hutton Jr., M.D. Encounter For Supervision Of Normal Unspecified Trimester (HCC) 11/16/2023 12:59 PM CDT - 11/16/2023 11:59 PM CDT Hospital Encounter Department of Cardiovascular Diseases in [place], [place] [address] [place] [address] Ariel Gunderson M.D. Encounter For Supervision Of [...] living situation today? I have a [facility] place to live 02/17/2023 Education Answer [...] Respiratory Rate 15 06/16/2023 10:2 2 AM CHEMICAL LABORATORY TECHNICIAN Oxygen Saturation 97% 12/24/2023 12: 09 PM CDT Inhaled Oxygen Concentration - - Weight 67.1 kg (147 lb 14.9 oz) 024 12:09 PM CDT Height 150 cm (4' 11.06) 07/08/2023 2:27 PM CHEMICAL LABORATORY TECHNICIAN Body Mass Index 29.82 07/08/2023 2:27 PM CHEMICAL LABORATORY TECHNICIAN Plan of Treatment Health Maintenance Due Date [...] FOLLOW UP GROWTH AND TRANSVAGINAL Exam Site: [facility] OB #3 Plurality: 1 OBHx: [...] Torri Franz R.D.M.SKelley on 12/24/2023 12:04:23 PM. Center Director: ??Torri Franz R.D.MKelleySKelley Thank You For This Referral Procedure Note Sherry Ramirez M.D. - 12/24/2023 JUSTIN DAWKINS OB Exam, 12/24/2023 EXAM INFORMATION Patient Name: JUSTIN DAWKINS : 1985 Age: 38 yrs Sex: Female Ref Phys: ARIEL GUNDERSON Exam Date: 12/24/2023 Procedure: US OB FOLLOW UP GROWTH AND TRANSVAGINAL Exam Site: [facility] OB #3 Plurality: 1 OBHx: [...] Torri Franz R.D.M.S. on 12/24/2023 12:04:23 PM. Center Director: Torri Franz R.D.M.S. Thank You For This Referral Ariel Gunderson M.D. IMG OB US PROCEDURES * CRAWFORD ECHO 2D WITH COLOR AND DOPPLER (11/16/2023 2:04 PM CDT) Ejection Fraction [facility] Anatomical Region Laterality Modality Echocardiography 11/16/2023 [...] - BLOOD ORDERABLES EXTERNAL INTERFACED LAB [address] [place] [address] from Last 3 Months or Most Recently Relevant to Health Maintenance Advance Directives For more information, please contact: [phone] * Full Code (Latest Code Status on File) Date Activated Date Inactivated Comments 06/16/2023 10:32 AM 06/16/2023 12:59 PM Question Answer Comments Full Code: Discussed * Full Code Date Activated Date Inactivated Comments 06/16/2023 8:09 AM 06/16/2023 10:32 AM Question Answer Comments Full Code: Discussed Care Teams Plant Production Manager Relationship Specialty Start Date End Date None Reported, Pcp PCP - General Family Medicine 06/16/23
--- OUTSIDE RECORDS SUMMARY | 2024-01-28 09:02 | XMS_ITS | Referral Summary ---
Author Organization [facility] Address [address] [place] [address] Care Team Providers Care Window Sash Installer Name Role Phone None Reported, Pcp Primary Care Provider Unavail able Source Comments Patient records contain information from all sites at [facility]. For routine questions regarding patient records, call [phone] during business hours, M-F 8:00 AM - 5:00 PM Central Time. Record requests for emergency care only can be directed to [phone] at any time.[facility] Encounters Date Type Department Care Team Description 12/24/2023 1:00 PM CDT Routine Department of Obstetrics and Gynecology in [place], [place] [address] [place] [phone] Tiarra Panda M.D., Ph.D. Abnormal Ultrasound Placental Low Lying (Primary Dx); Diabetes Mellitus Gestational (HCC) 12/24/2023 10:59 AM CDT - 12/24/2023 11:59 PM CDT Hospital Encounter Department of Obstetrics and Gynecology in [place], [place] [address] [place] [phone] Ariel Gunderson M.D. Encounter For Supervision Of Normal Unspecified Trimester (HCC) Discharge Disposition: Home or Self Care 11/16/2023 2:30 PM CDT Comprehensive Visit Division of Pediatric Cardiology in [place], [place] [address] [place] [phone] Favian Hutton Jr., M.D. Encounter For Supervision Of Normal Unspecified Trimester (HCC) 11/16/2023 12:59 PM CDT - 11/16/2023 11:59 PM CDT Hospital Encounter Department of Cardiovascular Diseases in [place], [place] [address] [place] [phone] Ariel Gunderson M.D. Encounter For Supervision Of [...] your living situation today? I have a [facility] place to live 02/17/2023 Education Answer [...] Respiratory Rate 15 06/16/2023 10:2 2 AM JAVA ARCHITECT Oxygen Saturation 97% 12/24/2023 12: 09 PM CDT Inhaled Oxygen Concentration - - Weight 67.1 kg (147 lb 14.9 oz) 024 12:09 PM CDT Height 150 cm (4' 11.06) 07/08/2023 2:27 PM JAVA ARCHITECT Body Mass Index 29.82 07/08/2023 2:27 PM JAVA ARCHITECT Plan of Treatment Not on file Procedures [...] GROWTH AND TRANSVAGINAL Exam Site: [facility] OB #3 Plurality: 1 OBHx: [G:(3)] [...] Torri Franz REsther.M.SKelley on 12/24/2023 12:04:23 PM. Railroad Maintenance Clerk: ??Torri Franz R.D.M.SKelley Thank You For This Referral Procedure Note Sherry Ramirez M.D. - 12/24/2023 CHERYL DAWKINS OB Exam, 12/24/2023 EXAM INFORMATION Patient Name: CHERYL DAWKINS : 1985 Age: 38 yrs Sex: Female Ref Phys: ARIEL GUNDERSON Exam Date: 12/24/2023 Procedure: US OB FOLLOW UP GROWTH AND TRANSVAGINAL Exam Site: [facility] OB #3 Plurality: 1 OBHx: [G:(3)] [...] Torri Franz R.D.M.SKelley on 12/24/2023 12:04:23 PM. Railroad Maintenance Clerk: Torri Franz R.D.M.S. Thank You For This Referral Ariel Gunderson M.D. IMG OB US PROCEDURES * CRAWFORD ECHO 2D WITH COLOR AND DOPPLER (11/16/2023 2:04 PM CDT) [facility] Signature Ejection Fraction [facility] Anatomical Region Laterality Modality Echocardiography 11/16/2023 [...] complete report, see the Order-Level Documents. Ariel Gunderosn M.D. CV ECHO PROCEDURES * HCV Ab Scrn w/Reflex to HCV PCR, Serum (09/04/2022) EXT HCV Ab, S Negative Negative, None detected EXTERNAL INTERFACED LAB Blood (Blood, Venous) 09/04/2022 Ordering Provider External [facility] MICR OBIOLOGY - BLOOD ORDERABLES EXTERNAL INTERFACED LAB [address] [place] [address] from Last 3 Months or Most Recently Relevant to Health Maintenance Advance Directives For more information, please contact: [phone] * Full Code (Latest Code Status on File) Date Activated Date Inactivated Comments 06/16/2023 10:32 AM 06/16/2023 12:59 PM Question Answer Comments Full Code: Discussed * Full Code Date Activated Date Inactivated Comments 06/16/2023 8:09 AM 06/16/2023 10:32 AM Question Answer Comments Full Code: Discussed Care Teams Window Sash Installer Relationship Specialty Start Date End Date None Reported, Pcp PCP - General Family Medicine 06/16/23
--- OUTSIDE RECORDS SUMMARY | 2024-01-28 09:02 | XMS_ITS | Clinical Summary ---
Author Organization [facility] Address [place], [place] [address] Care Team Providers Care Brass Molder Helper Name Role Phone [facility], [facility] Unavailable Mervat Anthony DO Primary Care Provider [phone] Allergies No known active allergies Medications No known medications Active Problems Problem Noted Date Diagnosed Date Tuberculosis 09/04/2022 Overview (09/04/2022): Latent Tuberculosis 09/04/2022 Overview (09/04/2022): Latent 09/04/2022 Overview (09/16/2022): Estimated Date of Delivery: 04/24/23 Patient's last menstrual period was 07/18/2022 (exact date). GBS- Last Tdap- 2018 Last Flu vaccine- 04/07 Glucose (GTT) result- OB Labs Recent Labs 09/04/22 1125 HGB 13.0 ABORH O Rh Positive RCBANTIBODY Negative TREPONEPALLI Negative RUBELLAIGG 17.40 Positive HBSAG Negative HEPCABY Non Reactive Comment [id number] Non Reactive No Known Allergies OB History [...] ....09/04/2022 11:10 AM TB lung, latent 06/04/2022 Overview (06/04/2022): See 03/2021 medical message - patient reports CXR normal. Has not had treatment Positive QuantiFERON-TB Gold test 03/31/2021 Overview (03/31/2021): See 06/2020 telephone call Immunizations Name Administration [...] 03/19/2021, Additional history exists COVID-19 vaccine series (2022- season) 2024 03/17/2022, 06/12/2021, 09/19/2020, Additional history [...] 5:[address] [facility] ([facility]) Blood BLOOD SPECIMEN / Unknown Venipuncture / Unknown 09/04/2022 11:25 AM CDT 09/04/2022 11:27 AM CDT Narrative [facility] ([facility]) - 09/08/2022 5:12 AM CDT Performed at: ??[address] ??[id number] Ichthyologist: David Dumont MD, Phone: ??[phone] Karol Arellano MD LABORATORY [facility] ([facility]) [address] [place] [address], * LC HIV-1/O/2, 4TH GENERATION (09/04/2022 11:25 AM CDT) Pathologist [facility] HIV Scr 4th Gen Non Reactive Non Reactive 09/08/2022 6:09 AM CDT [facility] ([facility]) Comment: HIV Negative HIV-1/HIV-2 antibodies and HIV-1 p24 antigen were NOT detected. There is no laboratory evidence of HIV infection. Blood BLOOD SPECIMEN / Unknown Venipuncture / Unknown 09/04/2022 11:25 AM CDT 09/04/2022 11:27 AM CDT Narrative [facility] ([facility]) - 09/08/2022 6:09 AM CDT Performed at: ??[address] ??[id number] Ichthyologist: David Dumont MD, Phone: ??[phone] Karol Arellano MD LABORATORY Performing Organization Address City/[facility]/ZIP Co de Phone Number [facility] ([facility]) [facility] [address] * HPV HIGH RISK (03/19/2021 4:20 PM CDT) TYPE 16 Negative Negative 03/25/2021 6:14 AM DIRECTOR PHYSICAL THERAPY [facility]AT[facility] TRAL LABORATORY TYPE 18 Negative Negative 03/25/2021 6:14 AM DIRECTOR PHYSICAL THERAPY [facility] TRAL LABORATORY OTHER HIGH RISK TYPES Negative Negative 03/25/2021 6:14 AM DIRECTOR PHYSICAL THERAPY [facility] TRAL LABORATORY Other (Cervical) Non-Blood / Unknown 03/19/2021 4:20 PM CDT 03/21/2021 11:42 AM CDT Narrative [facility] LABORATORY-CENTRAL LABORATORY - 03/25/2021 6:14 AM DIRECTOR PHYSICAL THERAPY HPV types 16, 18, 31, 33, 35, 39, 45, 51, 52, 56, 58, 59, 66 and 68 DNA were undetectable or below the pre-set threshold. Methodology: Shahrzad Soila 4800 HPV Test Tawanna Bates MD MICROBIOLOGY [facility] LABORATORY-CENTRAL LABORATORY [address] [place] [address], [place] from Last 3 Months or Most Recently Relevant to Health Maintenance Care Teams Brass Molder Helper Relationship Specialty Start Date End Date Mervat Anthony DO [address] [place] [address] PCP - General Family Practice 02/24/23 [facility], [facility] [address] [place] [address] 09/16/22
--- OUTSIDE RECORDS SUMMARY | 2024-01-28 09:02 | XMS_ITS ---
Author Organization [facility] Address [address] [place] [address] Care Team Providers Care Buggy Operator Name Role Phone Unavailable Unavailable Unavailable Surgery Details Not on file Complications Check Surgery Details section. Procedure Estimated Blood Loss Check Surgery Details section. Procedure Findings Check Surgery Details section. Procedure Specimens Taken Check Surgery Details section.
--- OUTSIDE RECORDS SUMMARY | 2024-01-28 09:02 | XMS_ITS | Encounter Summary ---
Author Organization [facility] Address [address] [place] [address] Care Team Providers Care Acute Care Nurse Name Role Phone None Reported, Pcp Primary Care Provider Unavail able Reason for Visit * Outpatient (Routine) - Closed Specialty Diagnoses / Procedures Referred By Babs de la vega Referred To Contact Obstetrics and Gynecology Ariel Jackman M.D. [address] [place] [address] [facility] Referral ID Status Reason Start Date Expiration Date Visits Re quested Visits Authorized [id number] Closed 10/15/2023 04/15/2025 1 1 Encounter Details Date Type Department Care Team (Latest Contact Info) Description 12/24/2023 1:00 PM CDT Routine Department of Obstetrics and Gynecology in [place], [place] [address] [place] [phone] Tiarra Panda M.D., Ph.D. [address] [place] [phone] Abnormal Ultrasound Placental Low Lying (Primary [...] Body Mass Index 29.82 07/08/2023 2:27 PM GUEST SERVICES COORDINATOR documented in this encounter Progress Notes * Tiarra Panda M.D., Ph.D. - 12/24/2023 1:00 PM CDT MATERNAL MEDICINE SUBJECTIVE Justin Dawkins is a 38 y.o. at 29w2d who returns to [facility] for ultrasound to evaluate placental location. Estimated Date of Delivery: 03/08/24. Justin Dawkins receives her care in [place]. She underwent IVF here at [facility]; therefore, had her anatomy survey completed [...] all of her care and delivery in [place]. Plan/Recommendations: Surveillance: A repeat ultrasound is recommended in 4-6 weeks for re-evaluation of the placental edge. Growth ultrasounds per routine for GDM-A2 testing is already planned in [place] Care: Should be able to receive all care in [place]. Return to [facility] as needed. Patient was seen with [...] documented as of this encounter Care Teams Acute Care Nurse Relationship Specialty Start Date End Date None Reported, Pcp PCP - General Family Medicine 06/16/23 documented as of this encounter
--- OUTSIDE RECORDS SUMMARY | 2024-01-28 09:03 | XMS_ITS | Encounter Summary ---
Author Organization [facility] Address [address] [place] [address] Care Team Providers Care Employee'S Representative Name Role Phone None Reported, Pcp Primary Care Provider Unavail able Reason for Referral * Outpatient (Routine) - Closed Specialty Diagnoses / Procedures Referred By Babs de la vega Referred To Contact Diagnoses Encounter For Supervision Of Normal Unspecified Trimester (HCC) Procedures Echo Ariel Jackman M.D. [address] [place] [phone] Referral ID Status Reason Start Date Expiration Date Visits Re quested Visits Authorized [id number] Closed 10/15/2023 10/14/2024 1 1 Reason for Visit * Outpatient (Routine) - Closed Specialty Diagnoses / Procedures Referred By Babs de la vega Referred To Contact Diagnoses Encounter For Supervision Of Normal Unspecified Trimester (HCC) Procedures Echo Ariel Jackman M.D. 200 [place] [address] Referral ID Status Reason Start Date Expiration Date Visits Re quested Visits Authorized [id number] Closed 10/15/2023 10/14/2024 1 1 Encounter Details Date Type Department Care Team (Latest Contact Info) Description 11/16/2023 12:59 PM CDT - 11/16/2023 11:59 PM CDT Hospital Encounter Department of Cardiovascular Diseases in [place], [place] [address] [place] [phone] Ariel Jackman M.D. [address] [place] [phone] Encounter For Supervision Of Normal Unspecified [...] your living situation today? I have a [facility] place to live 02/17/2023 Education Answer [...] documented as of this encounter Care Teams Employee'S Representative Relationship Specialty Start Date End Date None Reported, Pcp PCP - General Family Medicine 06/16/23 documented as of this encounter
--- OUTSIDE RECORDS SUMMARY | 2024-01-28 09:03 | XMS_ITS | Encounter Summary ---
Author Organization [facility] Address [address] [place] [address] Care Team Providers Care Incinerator Plant Supervisor Name Role Phone None Reported, Pcp Primary Care Provider Unavail able Reason for Visit * Reason Onset Date Comments MFM Triage 09/21/2023 Encounter Details Date Type Department Care Team (Late st Contact Info) Description 09/21/2023 Clinical Communication Department of Obstetrics and Gynecology in [place], [place] [address] [place] [phone] Prescheduling, Provider MFM Triage Social History Tobacco [...] your living situation today? I have a [facility] [employer] [facility] place to live 02/17/2023 Estimated Date of [...] documented as of this encounter Care Teams Incinerator Plant Supervisor Relationship Specialty Start Date End Date None Reported, Pcp PCP - General Family Medicine 06/16/23 documented as of this encounter
--- NOTE | 2024-01-28 09:15 | CRLHL7_ITS ---
For Patients: As a result of the Century Cures Act, medical imaging exams and procedure reports are released immediately into your electronic medical record. You may view this report before your referring provider. If you have questions, please contact your health care provider. INDICATION: AMA, GMA 2 COMPARISON: none TECHNIQUE: Real time antonio scale imaging of the fetus was performed. Without non-stress testing. FINDINGS: Sonographic imaging demonstrates a single living intrauterine gestation. Fetus demonstrates a regular cardiac rate of 155 beats per minute. Fetus has a vertex position. The amniotic fluid volume appears normal and there is a single deepest pocket measurement of 4.6 cm. The fetus was active and demonstrated normal breathing movements. There was normal flexion and extension of the trunk and extremities. IMPRESSION: Normal biophysical profile score of 8 out of 8. Dictated by Nicolás Kothari MD @ 01/31/2024 7:42:53 AM (Electronically Signed)
== END 2024-01-28 09:01 | disposition home or self-care (01) ==
LOC: US 09:01
PROVIDERS: PCP Family Medicine; Visit Provider Physician Assistant
DX: O09.529 Supervision of elderly multigravida, unspecified trimester (principal); O24.410 Gestational diabetes mellitus in pregnancy, diet controlled
CPT/HCPCS: 76819

== ENCOUNTER 2024-02-04 09:09 | Outpatient (CLI) | payer OTHER, SELFPAY ==
--- NOTE | 2024-02-04 09:15 | CRLHL7_ITS ---
For Patients: As a result of the Century Cures Act, medical imaging exams and procedure reports are released immediately into your electronic medical record. You may view this report before your referring provider. If you have questions, please contact your health care provider. INDICATION: Gestational diabetes COMPARISON: 01/28/2024 TECHNIQUE: Real time antonio scale imaging of the fetus was performed. Without non-stress testing. FINDINGS: Sonographic imaging demonstrates a single living intrauterine gestation. Fetus demonstrates a regular cardiac rate of 139 beats per minute. Fetus has a vertex position. The amniotic fluid volume appears normal and there is a single deepest pocket measurement of 7.6 cm. The fetus was active and demonstrated normal breathing movements. There was normal flexion and extension of the trunk and extremities. IMPRESSION: Normal biophysical profile score of 8 out of 8. Dictated by Nicolás Kothari MD @ 02/04/2024 12:13:20 PM (Electronically Signed)
== END 2024-02-04 09:10 | disposition home or self-care (01) ==
PROVIDERS: PCP Family Medicine; Visit Provider Physician Assistant
DX: O24.410 Gestational diabetes mellitus in pregnancy, diet controlled (principal)
CPT/HCPCS: 76819

== ENCOUNTER 2024-02-11 09:38 | Outpatient (CLI) | payer OTHER, SELFPAY ==
--- OUTSIDE RECORDS SUMMARY | 2024-02-11 09:41 | XMS_ITS | Encounter Summary ---
Author Organization [facility] Address [address] [place] [address] Care Team Providers Care Contract Officer Name Role Phone None Reported, Pcp Primary Care Provider Unavail able Reason for Referral * Outpatient (Routine) - Closed Specialty Diagnoses / Procedures Referred By Babs de la vega Referred To Contact Diagnoses Encounter For Supervision Of Normal Unspecified Trimester (HCC) Procedures Echo Ariel Jackman M.D. [address] [place] [phone] Referral ID Status Reason Start Date Expiration Date Visits Re quested Visits Authorized [id number] Closed 10/15/2023 10/14/2024 1 1 Reason for Visit * Outpatient (Routine) - Closed Specialty Diagnoses / Procedures Referred By Babs de la vega Referred To Contact Diagnoses Encounter For Supervision Of Normal Unspecified Trimester (HCC) Procedures Echo Ariel Jackman M.D. 200 [place] [address] Referral ID Status Reason Start Date Expiration Date Visits Re quested Visits Authorized [id number] Closed 10/15/2023 10/14/2024 1 1 Encounter Details Date Type Department Care Team (Latest Contact Info) Description 11/16/2023 12:59 PM CDT - 11/16/2023 11:59 PM CDT Hospital Encounter Department of Cardiovascular Diseases in [place], [place] [address] [place] [phone] Ariel Jackman M.D. [address] [place] [phone] Encounter For Supervision Of Normal Unspecified [...] your living situation today? I have a [facility] place [facility] live 02/17/2023 Education [...] DOPPLER (11/16/2023 2:04 PM CDT) Ejection Fraction [facility] Anatomical Region Laterality Modality Echocardiography 11/16/2023 1:12 [...] documented as of this encounter Care Teams Contract Officer Relationship Specialty Start Date End Date None Reported, Pcp PCP - General Family Medicine 06/16/23 documented as of this encounter
--- OUTSIDE RECORDS SUMMARY | 2024-02-11 09:41 | XMS_ITS | Encounter Summary ---
Author Organization [facility] Address [address] [place] [address] Care Team Providers Care Brim Molder Name Role Phone None Reported, Pcp Primary Care Provider Unavail able Reason for Visit * Outpatient (Routine) - Closed Specialty Diagnoses / Procedures Referred By Babs de la vega Referred To Contact Obstetrics and Gynecology Ariel Jackman M.D. [address] [place] [address] [facility] Referral ID Status Reason Start Date Expiration Date Visits Re quested Visits Authorized [id number] Closed 10/15/2023 04/15/2025 1 1 Encounter Details Date Type Department Care Team (Latest Contact Info) Description 12/24/2023 1:00 PM CDT Routine Department of Obstetrics and Gynecology in [place], [place] [address] [place] [phone] Tiarra Panda M.D., Ph.D. [address] [place] [phone] Abnormal Ultrasound Placental Low Lying [...] your living situation today? I have a [facility] place to live 02/17/2023 Education Answer [...] Body Mass Index 29.82 07/08/2023 2:27 PM CROTCH BREAKER documented in this encounter Progress Notes * Tiarra Panda M.D., Ph.D. - 12/24/2023 1:00 PM CDT MATERNAL MEDICINE SUBJECTIVE Justin Dawkins is a 38 y.o. at 29w2d who returns to [facility] for ultrasound to evaluate placental location. Estimated Date of Delivery: 03/08/24. Justin Dawkins receives her care in [place]. [facility] [...] all of her care and delivery in [place]. Plan/Recommendations: Surveillance: A repeat ultrasound is recommended in 4-6 weeks for re-evaluation of the placental edge. Growth ultrasounds per routine for GDM-A2 testing is already planned in [place] Care: Should be able to receive all care in [place]. Return to [facility] as needed. Patient was seen with [...] documented as of this encounter Care Teams Brim Molder Relationship Specialty Start Date End Date None Reported, Pcp PCP - General Family Medicine 06/16/23 documented as of this encounter
--- OUTSIDE RECORDS SUMMARY | 2024-02-11 09:41 | XMS_ITS | Encounter Summary ---
Author Organization [facility] Address [address] [place] [address] Care Team Providers Care Foundry Equipment Mechanic Name Role Phone None Reported, Pcp Primary Care Provider Unavail able Encounter Details Date Type Department Care Team (Latest Contact Info) Description 12/24/2023 10:59 AM CDT - 12/24/2023 11:59 PM CDT Hospital Encounter Department of Obstetrics and Gynecology in [place], [place] [address] [place] [phone] Ariel Gunderson M.D. [address] [place] [phone] Encounter For Supervision Of Normal Unspecified Trimester [...] living situation today? I have a [facility] place to live 02/17/2023 Education [...] GROWTH AND TRANSVAGINAL Exam Site: [facility] OB #3 Plurality: 1 OBHx: [G:(3)] [...] Torri Franz R.Candice.M.S. on 12/24/2023 12:04:23 PM. Dining Service Worker: ??Torri Franz R.D.M.S. Thank You For This Referral Procedure Note Sherry Ramirez M.D. - 12/24/2023 CHERYL DAWKINS OB Exam, 12/24/2023 EXAM INFORMATION Patient Name: CHERYL DAWKINS : 1985 Age: 38 yrs Sex: Female Ref Phys: ARIEL GUNDERSON Exam Date: 12/24/2023 Procedure: US OB FOLLOW UP GROWTH AND TRANSVAGINAL Exam Site: [facility] OB #3 Plurality: 1 OBHx: [G:(3)] [...] Torri Franz R.D.M.S. on 12/24/2023 12:04:23 PM. Dining Service Worker: Torri Franz R.D.M.S. Thank You For This Referral Ariel Gunderson M.D. IMG OB US PROCEDURES documented in this encounter Visit Diagnoses Diagnosis Encounter For Supervision Of Normal Unspecified Trimester (HCC) documented in this encounter Additional Health Concerns Assessment Noted Time PHQ-9 Depression Total Score: 4 02/18/20 23 4:19 PM CDT documented as of this encounter Care Teams Foundry Equipment Mechanic Relationship Specialty Start Date End Date None Reported, Pcp PCP - General Family Medicine 06/16/23 documented as of this encounter
--- OUTSIDE RECORDS SUMMARY | 2024-02-11 09:41 | XMS_ITS | Referral Summary ---
Author Organization [facility] Address [address] [place] [address] Care Team Providers Care Health Center Assistant Name Role Phone None Reported, Pcp Primary Care Provider Unavail able Source Comments Patient records contain information from all sites at [facility]. For routine questions regarding patient records, call [phone] during business hours, M-F 8:00 AM - 5:00 PM Central Time. Record requests for emergency care only can be directed to [phone] at any time.[facility] Encounters Date Type Department Care Team Description 12/24/2023 1:00 PM CDT Routine Department of Obstetrics and Gynecology in [place], [place] [address] [place] [phone] Tiarra Panda M.D., Ph.D. Abnormal Ultrasound Placental Low Lying (Primary Dx); Diabetes Mellitus Gestational (HCC) 12/24/2023 10:59 AM CDT - 12/24/2023 11:59 PM CDT Hospital Encounter Department of Obstetrics and Gynecology in [place], [place] [address] [place] [phone] Ariel Gunderson M.D. Encounter For Supervision Of Normal Unspecified Trimester (HCC) Discharge Disposition: Home or Self Care 11/16/2023 2:30 PM CDT Comprehensive Visit Division of Pediatric Cardiology in [place], [place] [address] [place] [phone] Favian Hutton Jr., M.D. Encounter For Supervision Of Normal Unspecified Trimester (HCC) 11/16/2023 12:59 PM CDT - 11/16/2023 11:59 PM CDT Hospital Encounter Department of Cardiovascular Diseases in [place], [place] [address] [place] [phone] Ariel Gunderson M.D. Encounter For Supervision Of [...] your living situation today? I have a [facility] place to live 02/17/2023 [...] Respiratory Rate 15 06/16/2023 10:2 2 AM MEDIA STRATEGIST Oxygen Saturation 97% 12/24/2023 12: 09 PM CDT Inhaled Oxygen Concentration - - Weight 67.1 kg (147 lb 14.9 oz) 024 12:09 PM CDT Height 150 cm (4' 11.06) 07/08/2023 2:27 PM MEDIA STRATEGIST Body Mass Index 29.82 07/08/2023 2:27 PM MEDIA STRATEGIST Plan of Treatment Not on file Procedures [...] ??Male COMMENTS Preliminary Read by Torri Franz REsther.M.SKelely on 12/24/2023 12:04:23 PM. Unit Director: ??Torri Franz R.D.M.SKelley Thank You For This [...] Torri Franz R.D.M.SKelley on 12/24/2023 12:04:23 PM. Unit Director: Torri Franz R.D.M.S. Thank You For This Referral Ariel Gunderson M.D. IMG OB US PROCEDURES * CRAWFORD ECHO 2D WITH COLOR AND DOPPLER (11/16/2023 2:04 PM CDT) [facility] Signature Ejection Fraction [facility] Anatomical Region Laterality Modality Echocardiography 11/16/2023 [...] OBIOLOGY - BLOOD ORDERABLES EXTERNAL INTERFACED LAB [address] [place] [address] from Last 3 Months or Most Recently Relevant to Health Maintenance Advance Directives For more information, please contact: [phone] * Full Code (Latest Code Status on File) Date Activated Date Inactivated Comments 06/16/2023 10:32 AM 06/16/2023 12:59 PM Question Answer Comments Full Code: Discussed * Full Code Date Activated Date Inactivated Comments 06/16/2023 8:09 AM 06/16/2023 10:32 AM Question Answer Comments Full Code: Discussed Care Teams Health Center Assistant Relationship Specialty Start Date End Date None Reported, Pcp PCP - General Family Medicine 06/16/23
--- OUTSIDE RECORDS SUMMARY | 2024-02-11 09:41 | XMS_ITS | Clinical Summary ---
Author Organization [facility] Address [address] [place] [address] Care Team Providers Care Manager News Name Role Phone None Reported, Pcp Primary Care Provider Unavail able Source Comments Patient records contain information from all sites at [facility]. For routine questions regarding patient records, call [phone] during business hours, M-F 8:00 AM - 5:00 PM Central Time. Record requests for emergency care only can be directed to [phone] at any time.[facility] Allergies Active Allergy Reactions Criticality [...] Routine Department of Obstetrics and Gynecology in [place], [place] [address] [place] [address] Tiarra Panda M.D., Ph.D. Abnormal Ultrasound Placental Low Lying (Primary Dx); Diabetes Mellitus Gestational (HCC) 12/24/2023 10:59 AM CDT - 12/24/2023 11:59 PM CDT Hospital Encounter Department of Obstetrics and Gynecology in [place], [place] [address] [place] [address] Ariel Gunderson M.D. Encounter For Supervision Of Normal Unspecified Trimester (HCC) Discharge Disposition: Home or Self Care 11/16/2023 2:30 PM CDT Comprehensive Visit Division of Pediatric Cardiology in [place], [place] [address] [place] [address] Favian Hutton Jr., M.D. Encounter For Supervision Of Normal Unspecified Trimester (HCC) 11/16/2023 12:59 PM CDT - 11/16/2023 11:59 PM CDT Hospital Encounter Department of Cardiovascular Diseases in [place], [place] [address] [place] [address] Ariel Gunderson M.D. Encounter For Supervision Of [...] your living situation today? I have a [facility] place to live 02/17/2023 Education Answer [...] Respiratory Rate 15 06/16/2023 10:2 2 AM SLITTER HELPER Oxygen Saturation 97% 12/24/2023 12: 09 PM CDT Inhaled Oxygen Concentration - - Weight 67.1 kg (147 lb 14.9 oz) 024 12:09 PM CDT Height 150 cm (4' 11.06) 07/08/2023 2:27 PM SLITTER HELPER Body Mass Index 29.82 07/08/2023 2:27 PM SLITTER HELPER Plan of Treatment Health Maintenance Due Date Last Done Comments Cervical Cancer Screening 1985 HIV Screening 1985 Pneumococcal vaccine (0-64 years) (1 of 2 - PCV) 1991 Hepatitis B Vaccines (1 of 3 - 19+ 3-dose series) 2004 Depression Screening (Annual PHQ-2) 05/17/2023 COVID-19 Vaccine ( season) 2024 03/02/2023, 03/17/2022, 06/12/2021, Additional history exists RSV vaccine - (32-36 weeks) or 60+ years (1 - Risk 1-dose series) 01/16/2024 Influenza Vaccine (#1) 2024 , 03/24/2022, 02/06/2021, Additional history exists Lipid (Cholesterol) Screening 06/05/2027 06/05/2022, 03/19/2021 DTaP,Tdap,and Td Vaccines (2 - Td or Tdap) 03/22/2029 03/22/2019 Hepatitis C Screening Completed 09/04/2022 HPV Vaccines Aged Out No longer eligi [...] FOLLOW UP GROWTH AND TRANSVAGINAL Exam Site: [facility] OB #3 Plurality: 1 OBHx: [G:(3)] ?F [...] Sex: ??Male COMMENTS Preliminary Read by Torri Franz, R.Candice.M.S. on 12/24/2023 12:04:23 PM. Supervisor Sewing Room: ??Torri Franz R.D.M.SKelely Thank You For This Referral Procedure Note Sherry Ramirez M.D. - 12/24/2023 CHERYL DAWKINS OB Exam, 12/24/2023 EXAM INFORMATION Patient Name: CHERYL DAWKINS : 1985 Age: 38 yrs Sex: Female Ref Phys: ARIEL GUNDERSON Exam Date: 12/24/2023 Procedure: US OB FOLLOW UP GROWTH AND TRANSVAGINAL Exam Site: [facility] OB #3 Plurality: 1 OBHx: [G:(3)] F [...] bpm Sex: Male COMMENTS Preliminary Read by Trori Franz R.D.M.SKelley on 12/24/2023 12:04:23 PM. Supervisor Sewing Room: Torri Franz R.D.M.S. Thank You For This Referral Ariel Gunderson M.D. IMG OB US PROCEDURES * CRAWFORD ECHO 2D WITH COLOR AND DOPPLER (11/16/2023 2:04 PM CDT) Ejection Fraction [facility] Anatomical Region Laterality Modality Echocardiography 11/16/2023 1:12 [...] - BLOOD ORDERABLES EXTERNAL INTERFACED LAB [address] [place] [address] from Last 3 Months or Most Recently Relevant to Health Maintenance Advance Directives For more information, please contact: [phone] * Full Code (Latest Code Status on File) Date Activated Date Inactivated Comments 06/16/2023 10:32 AM 06/16/2023 12:59 PM Question Answer Comments Full Code: Discussed * Full Code Date Activated Date Inactivated Comments 06/16/2023 8:09 AM 06/16/2023 10:32 AM Question Answer Comments Full Code: Discussed Care Teams Manager News Relationship Specialty Start Date End Date None Reported, Pcp PCP - General Family Medicine 06/16/23
--- OUTSIDE RECORDS SUMMARY | 2024-02-11 09:41 | XMS_ITS | Clinical Summary ---
Author Organization [employer] [facility] s & [facility] Affiliates Address [place], [place] [address] Care Team Providers Care Dancer Or Choreographer Name Role Phone [facility], [facility] Unavailable Mervat Anthony DO Primary Care Provider +1- [phone] Allergies No known active allergies Medications No [...] Positive HBSAG Negative HEPCABY Non Reactive Comment [id number] Non Reactive No Known Allergies OB History [...] of normal first in first trimester HPV HIGH RISK Routine 03/19/2021 4:20 PM CDT Screening for cervical cancer from Last 3 Months or Most Recently Relevant to Health Maintenance Results * LC HCV ANTIBODY RFX TO QUANT PCR (09/04/2022 11:25 AM CDT) HCV Ab Non Reactive Non Reactive 09/08/2022 5:12 AM CDT [facility] TEST[facility] ([facility]) Blood BLOOD SPECIMEN / Unknown Venipuncture / Unknown 09/04/2022 11:25 AM CDT 09/04/2022 11:27 AM CDT Narrative [facility] TEST[facility] (CET) - 09/08/2022 5:12 AM CDT Performed at: ??01 - [address] ??[id number] Airway Controller: David Dumont MD, Phone: ??[phone] Karol Arellano MD LABORATORY [facility] ([facility]) [address] [place] [address], * LC HIV-1/O/2, 4TH GENERATION (09/04/2022 11:25 AM CDT) Pathologist [facility] [place] HIV Scr 4th Gen Non Reactive Non Reactive 09/08/2022 6:09 AM CDT [facility] (CET) Comment: HIV Negative HIV-1/HIV-2 antibodies and HIV-1 p24 antigen were NOT detected. There is no laboratory evidence of HIV infection. Blood BLOOD SPECIMEN / Unknown Venipuncture / Unknown 09/04/2022 11:25 AM CDT 09/04/2022 11:27 AM CDT Narrative [facility] (CET) - 09/08/2022 6:09 AM CDT Performed at: ??[address] - [address] ??[id number] Airway Controller: David Dumont MD, Phone: ??[phone] Karol Arellano MD LABORATORY Performing Organization Address City/[facility]/ZIP Co de Phone Number [facility] (CET) [facility] * HPV HIGH RISK (03/19/2021 4:20 PM CDT) TYPE 16 Negative Negative 03/25/2021 6:14 AM PIZZA BAKER [facility] LABORATORY-[facility] TRAL LABORATORY TYPE 18 Negative Negative 03/25/2021 6:14 AM [facility] TRAL LABORATORY OTHER HIGH RISK TYPES Negative Negative 03/25/2021 6:14 AM [facility] TRAL LABORATORY Other (Cervical) Non-Blood / Unknown 03/19/2021 4:20 PM CDT 03/21/2021 11:42 AM CDT Narrative [facility] LABORATORY-CENTRAL LABORATORY - 03/25/2021 6:14 AM PIZZA BAKER HPV types 16, 18, 31, 33, 35, 39, 45, 51, 52, 56, 58, 59, 66 and 68 DNA were undetectable or below the pre-set threshold. Methodology: Shahrzad Soila 4800 HPV Test Tawanna Bates MD MICROBIOLOGY [facility] LABORATORY-CENTRAL LABORATORY [address] [place] [address], [place] from Last 3 Months or Most Recently Relevant to Health Maintenance Care Teams Dancer Or Choreographer Relationship Specialty Start Date End Date Mervat Anthony DO [address] [place] [address] PCP - General Family Practice 02/24/23 [facility], [facility] [address] [place] [address] 09/16/22
--- OUTSIDE RECORDS SUMMARY | 2024-02-11 09:41 | XMS_ITS ---
Author Organization [facility] Address [address] [place] [address] Care Team Providers Care Mailroom Personnel Name Role Phone Unavailable Unavailable Unavailable Surgery Details Not on file Complications Check Surgery Details section. Procedure Estimated Blood Loss Check Surgery Details section. Procedure Findings Check Surgery Details section. Procedure Specimens Taken Check Surgery Details section.
--- OUTSIDE RECORDS SUMMARY | 2024-02-11 09:41 | XMS_ITS | Encounter Summary ---
Author Organization [facility] Address [address] [place] [address] Care Team Providers Care Chip Machine Operator Name Role Phone None Reported, Pcp Primary Care Provider Unavail able Reason for Visit * Outpatient (Routine) - Closed Specialty Diagnoses / Procedures Referred By Babs de la vega Referred To Contact Pediatric Cardiology Diagnoses Encounter For Supervision Of Normal Unspecified Trimester (HCC) Ariel Jackman M.D. [address] [place] [phone] [facility] Referral ID Status Reason Start Date Expiration Date Visits Re quested Visits Authorized [id number] Closed 10/15/2023 04/15/2025 1 1 Encounter Details Date Type Department Care Team (Latest Contact Info) Description 11/16/2023 2:30 PM CDT Comprehensive Visit Division of Pediatric Cardiology in [place], [place] [address] [place] [phone] Favian Hutton Jr., M.D. [address] [place] [phone] Encounter For Supervision Of Normal Unspecified [...] documented as of this encounter Care Teams Chip Machine Operator Relationship Specialty Start Date End Date None Reported, Pcp PCP - General Family Medicine 06/16/23 documented as of this encounter
[2024-02-12 10:37] LABS: Strep B DNA Probe Negative (Negative)
[2024-02-12 10:40] LABS: Strep B Susceptibility Needed? No
== END 2024-02-11 09:39 | disposition home or self-care (01) ==
PROVIDERS: PCP Family Medicine; Visit Provider Obstetrics & Gynecology
DX: O24.419 Gestational diabetes mellitus in pregnancy, unspecified control (principal); O09.523 Supervision of elderly multigravida, third trimester; Z3A.36 36 weeks gestation of pregnancy
CPT/HCPCS: 76816; 76819; 87081; 87653

== ENCOUNTER 2024-02-18 07:54 | Outpatient (CLI) | payer OTHER, SELFPAY ==
--- OUTSIDE RECORDS SUMMARY | 2024-02-18 07:56 | XMS_ITS | Clinical Summary ---
Author Organization [facility] Address [address] [place] [address] Care Team Providers Care National Insurance Officer Name Role Phone None Reported, Pcp Primary Care Provider Unavail able Source Comments Patient records contain information from all sites at [facility]. For routine questions regarding patient records, call [phone] during business hours, M-F 8:00 AM - 5:00 PM Central Time. Record requests for emergency care only can be directed to [phone] at any time.[facility] Allergies Active Allergy Reactions Criticality Noted [...] Routine Department of Obstetrics and Gynecology in [place], [place] [address] [place] [address] Tiarra Panda M.D., Ph.D. Abnormal Ultrasound Placental Low Lying (Primary Dx); Diabetes Mellitus Gestational (HCC) 12/24/2023 10:59 AM CDT - 12/24/2023 11:59 PM CDT Hospital Encounter Department of Obstetrics and Gynecology in [place], [place] [address] [place] [address] Ariel Gunderson M.D. Encounter For Supervision Of [...] Respiratory Rate 15 06/16/2023 10:2 2 AM LIFE SCIENTIST Oxygen Saturation 97% 12/24/2023 12: 09 PM CDT Inhaled Oxygen Concentration - - Weight 67.1 kg (147 lb 14.9 oz) 024 12:09 PM CDT Height 150 cm (4' 11.06) 07/08/2023 2:27 PM LIFE SCIENTIST Body Mass Index 29.82 07/08/2023 2:27 PM LIFE SCIENTIST Plan of Treatment Health Maintenance Due Date Last Done Comments Cervical Cancer Screening 1985 HIV Screening 1985 Pneumococcal vaccine (0-64 years) (1 of 2 - PCV) 1991 Hepatitis B Vaccines (1 of 3 - 19+ 3-dose series) 2004 Depression Screening (Annual PHQ-2) 05/17/2023 COVID-19 Vaccine (6 - 2023- season) 2024 03/02/2023, 03/17/2022, 06/12/2021, Additional history [...] FOLLOW UP GROWTH AND TRANSVAGINAL Exam Site: [facility] OB #3 Plurality: 1 OBHx: [G:(3)] [...] Torri Franz R.D.M.S. on 12/24/2023 12:04:23 PM. Assembler 1St Shift: ??Torri Franz R.D.MKelleySKelley Thank You For This Referral Procedure Note Sherry Ramirez M.D. - 12/24/2023 CHERYL DAWKINS OB Exam, 12/24/2023 EXAM INFORMATION Patient Name: CHERYL DAWKINS : 1985 Age: 38 yrs Sex: Female Ref Phys: ARIEL GUNDRESON Exam Date: 12/24/2023 Procedure: OB FOLLOW UP GROWTH AND TRANSVAGINAL Exam Site: [facility] OB #3 Plurality: 1 OBHx: [G:(3)] [...] Torri Franz R.D.M.S. on 12/24/2023 12:04:23 PM. Assembler 1St Shift: Torri Franz R.D.MKelleySKelley Thank You For This Referral Ariel Gunderson M.D. IMG OB US PROCEDURES * HCV Ab Scrn w/Reflex to HCV PCR, Serum (09/04/2022) EXT HCV Ab, S Negative Negative, None detected EXTERNAL INTERFACED LAB Blood (Blood, Venous) 09/04/2022 Ordering Provider External [facility] MICR OBIOLOGY - BLOOD ORDERABLES EXTERNAL INTERFACED LAB [address] [place] [address] from Last 3 Months or Most Recently Relevant to Health Maintenance Advance Directives For more information, please contact: [phone] * Full Code (Latest Code Status on File) Date Activated Date Inactivated Comments 06/16/2023 10:32 AM 06/16/2023 12:59 PM Question Answer Comments Full Code: Discussed * Full Code Date Activated Date Inactivated Comments 06/16/2023 8:09 AM 06/16/2023 10:32 AM Question Answer Comments Full Code: Discussed Care Teams National Insurance Officer Relationship Specialty Start Date End Date None Reported, Pcp PCP - General Family Medicine 06/16/23
--- OUTSIDE RECORDS SUMMARY | 2024-02-18 07:56 | XMS_ITS | Encounter Summary ---
Author Organization [facility] Address [address] [place] [address] Care Team Providers Care Full Service Vending Driver Name Role Phone None Reported, Pcp Primary Care Provider Unavail able Reason for Visit * Outpatient (Routine) - Closed Specialty Diagnoses / Procedures Referred By Babs de la vega Referred To Contact Obstetrics and Gynecology Ariel Jackman M.D. [address] [place] [address] [facility] Referral ID Status Reason Start Date Expiration Date Visits Re quested Visits Authorized [id number] Closed 10/15/2023 04/15/2025 1 1 Encounter Details Date Type Department Care Team (Latest Contact Info) Description 12/24/2023 1:00 PM CDT Routine Department of Obstetrics and Gynecology in [place], [place] [address] [place] [phone] Tiarra Panda M.D., Ph.D. [address] [place] [address] Abnormal Ultrasound Placental Low Lying [...] your living situation today? I have a [facility] place to live 02/17/2023 Education [...] Body Mass Index 29.82 07/08/2023 2:27 PM CVT RN documented in this encounter Progress Notes * Tiarra Panda M.D., Ph.D. - 12/24/2023 1:00 PM CDT MATERNAL MEDICINE SUBJECTIVE Justin Dawkins is a 38 y.o. at 29w2d who returns to [facility] for ultrasound to evaluate placental location. Estimated Date of Delivery: 03/08/24. Justin Dawkins receives her care in [place]. She underwent IVF here at [facility]; therefore, had her anatomy survey completed [...] all of her care and delivery in [place]. Plan/Recommendations: Surveillance: A repeat ultrasound is recommended in 4-6 weeks for re-evaluation of the placental edge. Growth ultrasounds per routine for GDM-A2 testing is already planned in [place] Care: Should be able to receive all care in [place]. Return to [facility] as needed. Patient was seen with [...] documented as of this encounter Care Teams Full Service Vending Driver Relationship Specialty Start Date End Date None Reported, Pcp PCP - General Family Medicine 06/16/23 documented as of this encounter
--- OUTSIDE RECORDS SUMMARY | 2024-02-18 07:56 | XMS_ITS | Clinical Summary ---
Author Organization [employer] [facility] s & [facility] Affiliates Address [place], [place] [address] Care Team Providers Care Industrial Machine Assembler Name Role Phone [facility] Unavailable Mervat Anthony DO Primary Care Provider +1- [phone] Allergies No known active allergies Medications No [...] Positive HBSAG Negative HEPCABY Non Reactive Comment [id number] Non Reactive No Known Allergies OB History [...] Reactive Non Reactive 09/08/2022 5:12 AM CDT [facility] ESOTERIC TESTING ([facility]) Blood BLOOD SPECIMEN / Unknown Venipuncture / Unknown 09/04/2022 11:25 AM CDT 09/04/2022 11:27 AM CDT Narrative [facility] ESOT[facility] TEST[facility] (CET) - 09/08/2022 5:12 AM CDT Performed at: ??01 - [address] ??[id number] Hr Consultant: David Dumont MD, Phone: ??[phone] Karol Arellano MD LABORATORY [facility] ([facility]) [address] [place] [address], * LC HIV-1/O/2, 4TH GENERATION (09/04/2022 11:25 AM CDT) Pathologist [facility] HIV Scr 4th Gen Non Reactive Non Reactive 09/08/2022 6:[address] [facility] TEST[facility] (CET) Comment: HIV Negative HIV-1/HIV-2 antibodies and HIV-1 p24 antigen were NOT detected. There is no laboratory evidence of HIV infection. Blood BLOOD SPECIMEN / Unknown Venipuncture / Unknown 09/04/2022 11:25 AM CDT 09/04/2022 11:27 AM CDT Narrative [facility] (CET) - 09/08/2022 6:09 AM CDT Performed at: ??01 - [address] ??[id number] Hr Consultant: David Dumont MD, Phone: ??[phone] Karol Arellano MD LABORATORY Performing Organization Address City/[facility]/ZIP Co de Phone Number [facility] TEST[facility] (CET) [facility] [address] * HPV HIGH RISK (03/19/2021 4:20 PM CDT) TYPE 16 Negative Negative 03/25/2021 6:[address] CLERK [facility] LABORATORY-[facility] TRAL LABORATORY TYPE 18 Negative Negative 03/25/2021 6:[address] CLERK [facility] TRAL LABORATORY OTHER HIGH RISK TYPES Negative Negative 03/25/2021 6:[address] CLERK [facility] TRAL LABORATORY Other (Cervical) Non-Blood / Unknown 03/19/2021 4:20 PM CDT 03/21/2021 11:42 AM CDT Narrative [facility] LABORATORY-CENTRAL LABORATORY - 03/25/2021 6:[address] CLERK HPV types 16, 18, 31, 33, 35, 39, 45, 51, 52, 56, 58, 59, 66 and 68 DNA were undetectable or below the pre-set threshold. Methodology: Shahrzad Soila 4800 HPV Test Tawanna Bates MD MICROBIOLOGY [facility] LABORATORY-CENTRAL LABORATORY [address] [place] [address], [place] from Last 3 Months or Most Recently Relevant to Health Maintenance Care Teams Industrial Machine Assembler Relationship Specialty Start Date End Date Mervat Anthony DO [address] [place] [address] PCP - General Family Practice 02/24/23 [facility] [address] [place] [place] [address] 09/16/22
--- OUTSIDE RECORDS SUMMARY | 2024-02-18 07:56 | XMS_ITS ---
Author Organization [facility] Address [address] [place] [address] Care Team Providers Care Blood Donor Recruiter Name Role Phone Unavailable Unavailable Unavailable Surgery Details Not on file Complications Check Surgery Details section. Procedure Estimated Blood Loss Check Surgery Details section. Procedure Findings Check Surgery Details section. Procedure Specimens Taken Check Surgery Details section.
--- OUTSIDE RECORDS SUMMARY | 2024-02-18 07:56 | XMS_ITS | Encounter Summary ---
Author Organization [facility] Address [address] [place] [address] Care Team Providers Care Manager Software Name Role Phone None Reported, Pcp Primary Care Provider Unavail able Reason for Visit * Outpatient (Routine) - Closed Specialty Diagnoses / Procedures Referred By Babs de la vega Referred To Contact Pediatric Cardiology Diagnoses Encounter For Supervision Of Normal Unspecified Trimester (HCC) Ariel Jackman M.D. [address] [place] [phone] [facility] Referral ID Status Reason Start Date Expiration Date Visits Re quested Visits Authorized [id number] Closed 10/15/2023 04/15/2025 1 1 Encounter Details Date Type Department Care Team (Latest Contact Info) Description 11/16/2023 2:30 PM CDT Comprehensive Visit Division of Pediatric Cardiology in [place], [place] [address] [place] [phone] Favian Hutton Jr., M.D. [address] [place] [phone] Encounter For Supervision Of Normal Unspecified [...] your living situation today? I have a [facility] place to live 02/17/2023 Education Answer Date [...] documented as of this encounter Care Teams Manager Software Relationship Specialty Start Date End Date None Reported, Pcp PCP - General Family Medicine 06/16/23 documented as of this encounter
--- OUTSIDE RECORDS SUMMARY | 2024-02-18 07:56 | XMS_ITS | Encounter Summary ---
Author Organization [facility] Address [address] [place] [address] Care Team Providers Care Weapons System Instrument Mechanic Name Role Phone None Reported, Pcp Primary Care Provider Unavail able Encounter Details Date Type Department Care Team (Latest Contact Info) Description 12/24/2023 10:59 AM CDT - 12/24/2023 11:59 PM CDT Hospital Encounter Department of Obstetrics and Gynecology in [place], [place] [address] [place] [address] Ariel Gunderson M.D. [address] [place] [address] Encounter For Supervision Of Normal Unspecified Trimester [...] your living situation today? I have a [facility] place to live 02/17/2023 Education [...] FOLLOW UP GROWTH AND TRANSVAGINAL Exam Site: [facility] OB #3 Plurality: 1 OBHx: [...] Torri Franz R.Candice.M.S. on 12/24/2023 12:04:23 PM. Technology Applications Engineer: ??Torri Franz R.D.M.S. Thank You For This Referral Procedure Note Sherry Ramirez M.D. - 12/24/2023 CHERYL DAWKINS OB Exam, 12/24/2023 EXAM INFORMATION Patient Name: CHERYL DAWKINS : 1985 Age: 38 yrs Sex: Female Ref Phys: ARIEL GUNDERSON Exam Date: 12/24/2023 Procedure: US OB FOLLOW UP GROWTH AND TRANSVAGINAL Exam Site: [facility] OB #3 Plurality: 1 OBHx: [...] Torri Franz R.D.M.S. on 12/24/2023 12:04:23 PM. Technology Applications Engineer: Torri Franz R.D.M.S. Thank You For This Referral Ariel Gunderson M.D. IMG OB US PROCEDURES documented in this encounter Visit Diagnoses Diagnosis Encounter For Supervision Of Normal Unspecified Trimester (HCC) documented in this encounter Additional Health Concerns Assessment Noted Time PHQ-9 Depression Total Score: 4 02/18/20 23 4:19 PM CDT documented as of this encounter Care Teams Weapons System Instrument Mechanic Relationship Specialty Start Date End Date None Reported, Pcp PCP - General Family Medicine 06/16/23 documented as of this encounter
--- OUTSIDE RECORDS SUMMARY | 2024-02-18 07:56 | XMS_ITS | Encounter Summary ---
Author Organization [facility] Address [address] [place] [address] Care Team Providers Care Front End Loader Operator Name Role Phone None Reported, Pcp Primary Care Provider Unavail able Reason for Referral * Outpatient (Routine) - Closed Specialty Diagnoses / Procedures Referred By Babs de la vega Referred To Contact Diagnoses Encounter For Supervision Of Normal Unspecified Trimester (HCC) Procedures Echo Ariel Jackman M.D. [address] [place] [phone] Referral ID Status Reason Start Date Expiration Date Visits Re quested Visits Authorized [id number] Closed 10/15/2023 10/14/2024 1 1 Reason for Visit * Outpatient (Routine) - Closed Specialty Diagnoses / Procedures Referred By Babs de la vega Referred To Contact Diagnoses Encounter For Supervision Of Normal Unspecified Trimester (HCC) Procedures Echo Ariel Jackman M.D. [address] [place] [address] Referral ID Status Reason Start Date Expiration Date Visits Re quested Visits Authorized [id number] Closed 10/15/2023 10/14/2024 1 1 Encounter Details Date Type Department Care Team (Latest Contact Info) Description 11/16/2023 12:59 PM CDT - 11/16/2023 11:59 PM CDT Hospital Encounter Department of Cardiovascular Diseases in [place], [place] [address] [place] [phone] Ariel Jackman M.D. [address] [place] [phone] Encounter For Supervision Of Normal Unspecified [...] DOPPLER (11/16/2023 2:04 PM CDT) Ejection Fraction [facility] Anatomical Region Laterality Modality Echocardiography 11/16/2023 [...] documented as of this encounter Care Teams Front End Loader Operator Relationship Specialty Start Date End Date None Reported, Pcp PCP - General Family Medicine 06/16/23 documented as of this encounter
--- OUTSIDE RECORDS SUMMARY | 2024-02-18 07:56 | XMS_ITS | Referral Summary ---
Author Organization [facility] Address [address] [place] [address] Care Team Providers Care Modeling Manager Name Role Phone None Reported, Pcp Primary Care Provider Unavail able Source Comments Patient records contain information from all sites at [facility]. For routine questions regarding patient records, call [phone] during business hours, M-F 8:00 AM - 5:00 PM Central Time. Record requests for emergency care only can be directed to [phone] at any time.[facility] Encounters Date Type Department Care Team Description 12/24/2023 1:00 PM CDT Routine Department of Obstetrics and Gynecology in [place], [place] [address] [place] [address] Tiarra Panda M.D., Ph.D. Abnormal Ultrasound Placental Low Lying (Primary Dx); Diabetes Mellitus Gestational (HCC) 12/24/2023 10:59 AM CDT - 12/24/2023 11:59 PM CDT Hospital Encounter Department of Obstetrics and Gynecology in [place], [place] [address] [place] [address] Ariel Gunderson M.D. Encounter For Supervision Of [...] your living situation today? I have a [facility] place to live 02/17/2023 Education Answer [...] Respiratory Rate 15 06/16/2023 10:2 2 AM SALES AGENT PROTECTIVE SERVICE Oxygen Saturation 97% 12/24/2023 12: 09 PM CDT Inhaled Oxygen Concentration - - Weight 67.1 kg (147 lb 14.9 oz) 024 12:09 PM CDT Height 150 cm (4' 11.06) 07/08/2023 2:27 PM SALES AGENT PROTECTIVE SERVICE Body Mass Index 29.82 07/08/2023 2:27 PM SALES AGENT PROTECTIVE SERVICE Plan of Treatment Not on file Procedures [...] FOLLOW UP GROWTH AND TRANSVAGINAL Exam Site: [facility] OB #3 Plurality: 1 OBHx: [G:(3)] [...] Torri Franz, R.Candice.M.S. on 12/24/2023 12:04:23 PM. Brazing Furnace Feeder: ??Torri Franz R.D.M.SKelley Thank You For This Referral Procedure Note Sherry Ramirez M.D. - 12/24/2023 [facility] OB Exam, 12/24/2023 EXAM INFORMATION Patient Name: CHERYL DAWKINS : 1985 Age: 38 yrs Sex: Female Ref Phys: ARIEL GUNDERSON Exam Date: 12/24/2023 Procedure: US OB FOLLOW UP GROWTH AND TRANSVAGINAL Exam Site: [facility] OB #3 Plurality: 1 OBHx: [G:(3)] [...] Torri Franz R.D.MKelleySKelley on 12/24/2023 12:04:23 PM. Brazing Furnace Feeder: Torri Franz R.D.M.S. Thank You For This Referral Ariel Gunderson M.D. IMG OB US PROCEDURES * HCV Ab Scrn w/Reflex to HCV PCR, Serum (09/04/2022) EXT HCV Ab, S Negative Negative, None detected EXTERNAL INTERFACED LAB Blood (Blood, Venous) 09/04/2022 Ordering Provider External [facility] MICR OBIOLOGY - BLOOD ORDERABLES EXTERNAL INTERFACED LAB [address] [place] [address] from Last 3 Months or Most Recently Relevant to Health Maintenance Advance Directives For more information, please contact: [phone] * Full Code (Latest Code Status on File) Date Activated Date Inactivated Comments 06/16/2023 10:32 AM 06/16/2023 12:59 PM Question Answer Comments Full Code: Discussed * Full Code Date Activated Date Inactivated Comments 06/16/2023 8:09 AM 06/16/2023 10:32 AM Question Answer Comments Full Code: Discussed Care Teams Modeling Manager Relationship Specialty Start Date End Date None Reported, Pcp PCP - General Family Medicine 06/16/23
--- NOTE | 2024-02-18 08:15 | CRLHL7_ITS ---
For Patients: As a result of the Century Cures Act, medical imaging exams and procedure reports are released immediately into your electronic medical record. You may view this report before your referring provider. If you have questions, please contact your health care provider. INDICATION: Gestational diabetes COMPARISON: 02/11/2024 TECHNIQUE: Real time antonio scale imaging of the fetus was performed. Without non-stress testing. FINDINGS: Sonographic imaging demonstrates a single living intrauterine gestation. Fetus demonstrates a regular cardiac rate of beats per minute. Fetus has a orientation with spine to the maternal . The umbilical artery demonstrates adequate diastolic blood flow. The S/D ratio measures . The amniotic fluid volume appears normal and there is a single deepest pocket measurement of cm. The fetus was active and demonstrated normal breathing movements. There was normal flexion and extension of the trunk and extremities. IMPRESSION: Normal biophysical profile score of 8 out of 8. Dictated by Nicolás Kothari MD @ 02/20/2024 10:09:20 PM (Electronically Signed)
== END 2024-02-18 07:55 | disposition home or self-care (01) ==
LOC: US 07:54
PROVIDERS: PCP Family Medicine; Visit Provider Physician Assistant
DX: O24.410 Gestational diabetes mellitus in pregnancy, diet controlled (principal)
CPT/HCPCS: 76819

== ENCOUNTER 2024-02-25 08:02 | Outpatient (CLI) | payer OTHER, SELFPAY ==
--- NOTE | 2024-02-25 08:15 | CRLHL7_ITS ---
For Patients: As a result of the Century Cures Act, medical imaging exams and procedure reports are released immediately into your electronic medical record. You may view this report before your referring provider. If you have questions, please contact your health care provider. INDICATION: GDM A2 COMPARISON: none TECHNIQUE: Real time antonio scale imaging of the fetus was performed. Without non-stress testing. FINDINGS: Sonographic imaging demonstrates a single living intrauterine gestation. Fetus demonstrates a regular cardiac rate of 137 beats per minute. Fetus has a vertex position. The amniotic fluid volume appears normal and there is a single deepest pocket measurement of 3.0 cm. The fetus was active and demonstrated normal breathing movements. There was normal flexion and extension of the trunk and extremities. IMPRESSION: Normal biophysical profile score of 8 out of 8. Dictated by Nicolás Kothari MD @ 02/25/2024 10:37:35 AM (Electronically Signed)
== END 2024-02-25 08:03 | disposition home or self-care (01) ==
PROVIDERS: PCP Family Medicine; Visit Provider Physician Assistant
DX: O24.410 Gestational diabetes mellitus in pregnancy, diet controlled (principal)
CPT/HCPCS: 76819

== ENCOUNTER 2024-02-29 15:40 | Inpatient (IN) | payer OTHER, SELFPAY ==
[2024-02-29] VITALS (8 sets, daily range): BP systolic 97–100; BP diastolic 63–67; PULSE 75–92; TEMP 36.4–36.6; O2SAT 94–98; BMI 29.2
--- OUTSIDE RECORDS SUMMARY | 2024-02-29 15:45 | XMS_ITS | Clinical Summary ---
Author Organization [facility] Address [address] [place] [address] Care Team Providers Care Fashion Artist Name Role Phone None Reported, Pcp Primary Care Provider Unavail able Source Comments Patient records contain information from all sites at [facility]. For routine questions regarding patient records, call [phone] during business hours, M-F 8:00 AM - 5:00 PM Central Time. Record requests for emergency care only can be directed to [phone] at any time.[facility] Allergies Active Allergy Reactions Criticality Noted Date Comments Pollen Extracts Cough 02/19/2023 Medications vit calc,iron,folic (PRENAT.VITS,DONNIE ,[id number]-MHUEX ORAL) Take 1 tablet by mouth. 09/18/2022 [...] Routine Department of Obstetrics and Gynecology in [place], [place] [address] [place] [address] Tiarra Panda M.D., Ph.D. Abnormal Ultrasound Placental Low Lying (Primary Dx); Diabetes Mellitus Gestational (HCC) 12/24/2023 10:59 AM CDT - 12/24/2023 11:59 PM CDT Hospital Encounter Department of Obstetrics and Gynecology in [place], [place] [address] [place] [address] Ariel Gunderson M.D. 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 Not on file Last Filed Vital Signs Vital Sign Reading Time Taken Comments Blood Pressure 85/56 12/24/2023 12:09 PM CDT Pulse 73 12/24/2023 12:09 PM CDT Temperature 36.6 ??C (97.9 ??F) 06/16/2023 8:56 AM CS T Respiratory Rate 15 06/16/2023 10:2 2 AM PERSONAL LINES INSURANCE AGENT Oxygen Saturation 97% 12/24/2023 12: 09 PM CDT Inhaled Oxygen Concentration - - Weight 67.1 kg (147 lb 14.9 oz) 024 12:09 PM CDT Height 150 cm (4' 11.06) 07/08/2023 2:27 PM PERSONAL LINES INSURANCE AGENT Body Mass Index 29.82 07/08/2023 2:27 PM PERSONAL LINES INSURANCE AGENT Plan of Treatment Health Maintenance Due Date Last Done Comments Cervical Cancer Screening 1985 HIV Screening 1985 Pneumococcal vaccine (0-64 years) (1 of 2 - PCV) 1991 Hepatitis B Vaccines (1 of 3 - 19+ 3-dose series) 2004 Depression Screening (Annual PHQ-2) 05/17/2023 COVID-19 Vaccine ( - 2023-25 season) 2024 03/02/2023, 03/17/2022, 06/12/2021, Additional history exists Influenza Vaccine (#1) 2024 , 03/24/2022, 02/06/2021, Additional history exists Lipid (Cholesterol) Screening 06/05/2027 06/05/2022, 03/19/2021 DTaP,Tdap,and Td Vaccines (2 - Td or Tdap) 03/22/2029 03/22/2019 Hepatitis C Screening Completed 09/04/2022 HPV Vaccines Aged Out No longer eligi ble based on patient's age to complete this topic RSV vaccine - (32-36 weeks) or 60+ years (No Doses Required) Completed Procedures Procedure Name Priority Date/Time Associated Diagnosis [...] FOLLOW UP GROWTH AND TRANSVAGINAL Exam Site: [facility] OB #3 Plurality: 1 OBHx: [G:(3)] ?F [...] ??Male COMMENTS Preliminary Read by Torri Franz R.D.MKelleySKelley on 12/24/2023 12:04:23 PM. Web Development Manager: ??Torri Franz R.D.M.S. Thank You For This Referral Procedure Note Sherry Ramirez M.D. - 12/24/2023 CHERYL DAWKINS OB Exam, 12/24/2023 EXAM INFORMATION Patient Name: CHERYL DAWKINS : 1985 Age: 38 yrs Sex: Female Ref Phys: ARIEL GUNDERSON Exam Date: 12/24/2023 Procedure: OB FOLLOW UP GROWTH AND TRANSVAGINAL Exam Site: [facility] OB #3 Plurality: 1 OBHx: [G:(3)] F [...] Torri Franz R.D.M.S. on 12/24/2023 12:04:23 PM. Web Development Manager: Torri Franz R.D.M.S. Thank You For This Referral us Ariel Gunderson M.D. IMSasha OB US PROCEDURES Final Resu lt * HCV Ab Scrn w/Reflex to HCV PCR, Serum (09/04/2022) EXT HCV Ab, S Negative Negative, None detected EXTERNAL INTERFACED LAB Blood (Blood, Venous) 09/04/2022 us Ordering Provider External M.DKelley LAB MICR OBIOLOGY - BLOOD ORDERABLES Edited Result - Final EXTERNAL INTERFACED LAB [address] [place] [address] from Last 3 Months or Most Recently Relevant to Health Maintenance Insurance MarginLeft Advance Directives For more information, please contact: [phone] * Full Code (Latest Code Status on File) Date Activated Date Inactivated Comments 06/16/2023 10:32 AM 06/16/2023 12:59 PM Question Answer Comments Full Code: Discussed * Full Code Date Activated Date Inactivated Comments 06/16/2023 8:09 AM 06/16/2023 10:32 AM Question Answer Comments Full Code: Discussed Care Teams Fashion Artist Relationship Specialty Start Date End Date None Reported, Pcp PCP - General Family Medicine 06/16/23
--- OUTSIDE RECORDS SUMMARY | 2024-02-29 15:45 | XMS_ITS | Clinical Summary ---
Author Organization [facility] Address [place], [place] [address] Care Team Providers Care Industrial Design Intern Name Role Phone [facility], [facility] Unavailable Mervat Anthony DO Primary Care Provider [phone] Allergies No known active allergies Medications No [...] Positive HBSAG Negative HEPCABY Non Reactive Comment [id number] Non Reactive No Known Allergies OB History [...] Reactive Non Reactive 09/08/2022 5:[address] [facility] ([facility]) Blood BLOOD SPECIMEN / Unknown Venipuncture / Unknown 09/04/2022 11:25 AM CDT 09/04/2022 11:27 AM CDT Narrative [facility] ([facility]) - 09/08/2022 5:12 AM CDT Performed at: ??[address] ??[id number] Automobile Brakes Bonder: David Dumont MD, Phone: ??[phone] Karol Arellano MD LABORATORY [facility] ([facility]) [address] [place] [address], * LC HIV-1/O/2, 4TH GENERATION (09/04/2022 11:25 AM CDT) Pathologist [facility] HIV Scr 4th Gen Non Reactive Non Reactive 09/08/2022 6:09 AM CDT [facility] ([facility]) Comment: HIV Negative HIV-1/HIV-2 antibodies and HIV-1 p24 antigen were NOT detected. There is no laboratory evidence of HIV infection. Blood BLOOD SPECIMEN / Unknown Venipuncture / Unknown 09/04/2022 11:25 AM CDT 09/04/2022 11:27 AM CDT Narrative [facility] ([facility]) - 09/08/2022 6:09 AM CDT Performed at: ??[address] ??[id number] [employer] Bra[employer] Bonder: David Dumont MD, Phone: ??[phone] Karol Arellano MD LABORATORY Performing Organization Address City/[facility]/ZIP Co de Phone Number [facility] ([facility]) [facility] * HPV HIGH RISK (03/19/2021 4:20 PM CDT) TYPE 16 Negative Negative 03/25/2021 6:14 AM ENROLLMENT NURSE [facility] TRAL LABORATORY TYPE 18 Negative Negative 03/25/2021 6:14 AM ENROLLMENT NURSE [facility] TR[facility] OTHER HIGH RISK TYPES Negative Negative 03/25/2021 6:14 AM ENROLLMENT NURSE [facility] TRAL LABORATORY Other (Cervical) Non-Blood / Unknown 03/19/2021 4:20 PM CDT 03/21/2021 11:42 AM CDT Narrative [facility]ORATORY - 03/25/2021 6:14 AM ENROLLMENT NURSE HPV types 16, 18, 31, 33, 35, 39, 45, 51, 52, 56, 58, 59, 66 and 68 DNA were undetectable or below the pre-set threshold. Methodology: Shahrzad Soila 4800 HPV Test Tawanna Bates MD MICROBIOLOGY [facility] [address] [place] [address], [place] from Last 3 Months or Most Recently Relevant to Health Maintenance Care Teams Industrial Design Intern Relationship Specialty Start Date End Date Mervat Anthony DO [address] [place] [address] PCP - General Family Practice 02/24/23 [facility], [facility] [address] [place] [address] 09/16/22
--- OUTSIDE RECORDS SUMMARY | 2024-02-29 15:46 | XMS_ITS | Referral Summary ---
Author Organization [facility] Address [address] [place] [address] Care Team Providers Care Analysis Director Name Role Phone None Reported, Pcp Primary Care Provider Unavail able Source Comments Patient records contain information from all sites at [facility]. For routine questions regarding patient records, call [phone] during business hours, M-F 8:00 AM - 5:00 PM Central Time. Record requests for emergency care only can be directed to [phone] at any time.[facility] Encounters Date Type Department Care Team Description 12/24/2023 1:00 PM CDT Routine Department of Obstetrics and Gynecology in [place], [place] [address] [place] [address] Tiarra Panda M.D., Ph.D. Abnormal Ultrasound Placental Low Lying (Primary Dx); Diabetes Mellitus Gestational (HCC) 12/24/2023 10:59 AM CDT - 12/24/2023 11:59 PM CDT Hospital Encounter Department of Obstetrics and Gynecology in [place], [place] [address] [place] [address] Ariel Gunderson M.D. Encounter For Supervision Of Normal Unspecified Trimester (HCC) Discharge Disposition: Home or Self Care from Last 3 Months Allergies Active Allergy Reactions Criticality Noted Date Comments Pollen Extracts Cough 02/19/2023 Medications vit calc,iron,folic (PRENAT.VITS,DONNIE ,[id number] ORAL) Take 1 tablet by mouth. 09/18/2022 [...] your living situation today? 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 Last Filed Vital Signs Vital Sign Reading Time Taken Comments Blood Pressure 85/56 12/24/2023 12:09 PM CDT Pulse 73 12/24/2023 12:09 PM CDT Temperature 36.6 ??C (97.9 ??F) 06/16/2023 8:56 AM CS T Respiratory Rate 15 06/16/2023 10:2 2 AM TRAFFIC SIGNAL MECHANIC Oxygen Saturation 97% 12/24/2023 12: 09 PM CDT Inhaled Oxygen Concentration - - Weight 67.1 kg (147 lb 14.9 oz) 024 12:09 PM CDT Height 150 cm (4' 11.06) 07/08/2023 2:27 PM TRAFFIC SIGNAL MECHANIC Body Mass Index 29.82 07/08/2023 2:27 PM TRAFFIC SIGNAL MECHANIC Plan of Treatment Not on file Procedures [...] FOLLOW UP GROWTH AND TRANSVAGINAL Exam Site: [facility] OB #3 Plurality: 1 OBHx: [...] Torri Franz R.D.M.S. on 12/24/2023 12:04:23 PM. Skirt Trimmer: ??Torri Franz R.D.M.SKelley Thank You For This Referral Procedure Note Sherry Ramirez M.D. - 12/24/2023 CHERYL DAWKINS OB Exam, 12/24/2023 EXAM INFORMATION Patient Name: CHERYL DAWKINS : 1985 Age: 38 yrs Sex: Female Ref Phys: ARIEL GUNDERSON Exam Date: 12/24/2023 Procedure: US OB FOLLOW UP GROWTH AND TRANSVAGINAL Exam Site: [facility] OB #3 Plurality: 1 OBHx: [...] Torri Franz R.D.MKelleySKelley on 12/24/2023 12:04:23 PM. Skirt Trimmer: Torri Franz R.D.M.S. Thank You For This Referral us Ariel Gunderson M.D. IMG OB US PROCEDURES Final Resu lt * HCV Ab Scrn w/Reflex to HCV PCR, Serum (09/04/2022) EXT HCV Ab, S Negative Negative, None detected EXTERNAL INTERFACED LAB Blood (Blood, Venous) 09/04/2022 us Ordering Provider External [facility] MICR OBIOLOGY - BLOOD ORDERABLES Edited Result - Final EXTERNAL INTERFACED LAB [address] [place] [address] from Last 3 Months or Most Recently Relevant to Health Maintenance Insurance [employer] Advance Directives For more information, please contact: [phone] * Full Code (Latest Code Status on File) Date Activated Date Inactivated Comments 06/16/2023 10:32 AM 06/16/2023 12:59 PM Question Answer Comments Full Code: Discussed * Full Code Date Activated Date Inactivated Comments 06/16/2023 8:09 AM 06/16/2023 10:32 AM Question Answer Comments Full Code: Discussed Care Teams Analysis Director Relationship Specialty Start Date End Date None Reported, Pcp PCP - General Family Medicine 06/16/23
--- OUTSIDE RECORDS SUMMARY | 2024-02-29 15:46 | XMS_ITS ---
Author Organization [facility] Address [address] [place] [address] Care Team Providers Care Chief Engineer Research Name Role Phone Unavailable Unavailable Unavailable Surgery Details Not on file Complications Check Surgery Details section. Procedure Estimated Blood Loss Check Surgery Details section. Procedure Findings Check Surgery Details section. Procedure Specimens Taken Check Surgery Details section.
--- OUTSIDE RECORDS SUMMARY | 2024-02-29 15:46 | XMS_ITS | Encounter Summary ---
Author Organization [facility] Address [address] [place] [address] Care Team Providers Care Computerized Mill Mill Recorder Name Role Phone None Reported, Pcp Primary Care Provider Unavail able Reason for Visit * Outpatient (Routine) - Closed Specialty Diagnoses / Procedures Referred By Babs de la vega Referred To Contact Obstetrics and Gynecology Ariel Jackman M.D. [address] [place] [address] Phone: tel: fax: [facility] Referral ID Status Reason Start Date Expiration Date Visits Re quested Visits Authorized [id number] Closed 10/15/2023 04/15/2025 1 1 Encounter Details Date Type Department Care Team (Latest Contact Info) Description 12/24/2023 1:00 PM CDT Routine Department of Obstetrics and Gynecology in [place], [place] [address] [place] [phone] Tiarra Panda M.D., Ph.D. [address] [place] [address] Abnormal Ultrasound Placental Low Lying [...] living situation today? 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 - 12/24/2023 1:00 PM CDT MATERNAL MEDICINE SUBJECTIVE Justin Dawkins is a 38 y.o. at 29w2d who returns to [facility] for ultrasound to evaluate placental location. Estimated Date of Delivery: 03/08/24. Justin Dawkins receives her care in [place]. She underwent IVF here at [facility]; therefore, had her anatomy survey completed [...] all of her care and delivery in [place]. Plan/Recommendations: Surveillance: A repeat ultrasound is recommended in 4-6 weeks for re-evaluation of the placental edge. Growth ultrasounds per routine for GDM-A2 testing is already planned in [place] Care: Should be able to receive all care in [place]. Return to [facility] as needed. Patient was seen with [...] documented as of this encounter Care Teams Computerized Mill Mill Recorder Relationship Specialty Start Date End Date None Reported, Pcp PCP - General Family Medicine 06/16/23 documented as of this encounter
--- OUTSIDE RECORDS SUMMARY | 2024-02-29 15:46 | XMS_ITS | Encounter Summary ---
Author Organization [facility] Address [address] [place] [address] Care Team Providers Care Communications Station Manager Name Role Phone None Reported, Pcp Primary Care Provider Unavail able Encounter Details Date Type Department Care Team (Latest Contact Info) Description 12/24/2023 10:59 AM CDT - 12/24/2023 11:59 PM CDT Hospital Encounter Department of Obstetrics and Gynecology in [place], [place] [address] [place] [address] Ariel Gunderson M.D. [address] [place] [address] Encounter For Supervision Of Normal Unspecified Trimester [...] your living situation today? 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 09/20/2023 cholecalciferol, vitamin D3, (VITAMIN D3 ORAL) Take by mouth. vit calc,iron,folic (PRENAT.VITS,DONNIE, [id number]-SVMXY ORAL) Take 1 tablet by mouth. 09/18/2022 [...] Exam, 12/24/2023 EXAM INFORMATION Patient Name: ??CHERYL DAKWINS : ??1985 Age: ??38 yrs Sex: ??Female Ref Phys: ??ARIEL GUNDERSON Exam Date: 12/24/2023 Procedure: US OB FOLLOW UP GROWTH AND TRANSVAGINAL Exam Site: [facility] OB #3 Plurality: 1 OBHx: [G:(3)] [...] Torri Franz REsther.M.S. on 12/24/2023 12:04:23 PM. Bonding Machine Operator: ??Torri Franz R.D.M.S. Thank You For This Referral Procedure Note Sherry Ramirez M.D. - 12/24/2023 CHERYL DAWKINS OB Exam, 12/24/2023 EXAM INFORMATION Patient Name: CHERYL DAWKINS : 1985 Age: 38 yrs Sex: Female Ref Phys: ARIEL GUNDERSON Exam Date: 12/24/2023 Procedure: OB FOLLOW UP GROWTH AND TRANSVAGINAL Exam Site: [facility] OB #3 Plurality: 1 OBHx: [G:(3)] [...] Sex: Male COMMENTS Preliminary Read by Torri Farnz R.D.M.S. on 12/24/2023 12:04:23 PM. Bonding Machine Operator: Torri Franz R.D.M.S. Thank You For This Referral us Ariel Gunderson M.D. IMG OB US PROCEDURES Final Resu lt documented in this encounter Visit Diagnoses Diagnosis Encounter For Supervision Of Normal Unspecified Trimester (HCC) documented in this encounter Additional Health Concerns Assessment Noted Time PHQ-9 Depression Total Score: 4 02/18/20 23 4:19 PM CDT documented as of this encounter Care Teams Communications Station Manager Relationship Specialty Start Date End Date None Reported, Pcp PCP - General Family Medicine 06/16/23 documented as of this encounter
--- NOTE | 2024-02-29 16:42 | P.LDBA_ITS ---
Subjective History of Present Illness Narrative: Patient is being admitted to Labor and Delivery for induction of labor. She is a 38 year old at 38 6/7 weeks' gestation. Indication for induction is gestational diabetes. She reports that her most recent dose of NPH has been 8 units at night time. She has had many low blood sugars in recent history. Her full history and physical was dictated by Dr. Lemon on 02/18/2024. Please see this for details. Specific Issues/Plans G 3 P 0020 Spouse may not be home from [place] prior to delivery. # GDMA2 diabetes - Pre-diabetic at beginning of . - First diagnosed in 10/21/2023 = 20 weeks due to early gtt of 207 - Last A1C 5.7 on 08/21/23 - On LDA - Nutrition referral placed. Will start monitoring her BG. Supplies given - s/p normal anatomy scan with the exception of placenta previa - ECHO scheduled for November 15: Normal - Will send glucose log via portal after 1 week of monitorin11/02/2023 log reviewed, continue dietary modification/QID testing. - Refer to August for insulin therapy due to elevated fastings - 12/16/2023: 8 units NPH at at bedtime. Increased to 9 units on 01/09 and increased to 10 units on 01/13. - twice weekly testing starting at 32 weeks. Growth ultrasound q.4 weeks starting at 32 weeks. testing form completed 12/16/2023. - Recommend IOL at 39 weeks due to IVF, AMA, GDMA2, Marginal cord insertion (form filled out for cervical ripening on 02/28 at 38w6d - patient to turn in consent form and have cervical exam on 02/24) # Placenta previa * Reassess placental location at 32 weeks: scheduled at [place] 12/24/23: Persistent anterior low lying placenta, inferior edge 1.2 cm from internal os. No Vasa previa. * Repeat ultrasound 01/20: resolved! # Marginal cord insertion * noted on level 2 US from 10/14, not mentioned on subsequent scans # IVF: -20 week level II detailed ultrasound with ECHO, consult with [facility]. -No further testing if normal results. -Consider growth ultrasound at 28-32 weeks: scheduled at [place] -Testing as for GDMA2 # AMA: Will be 38 years old at [facility]. -Recommend Genetic Screening Test -20 week level II detailed ultrasound, consult with MFM. -LDA recommend. Patient will start now at 15w # Latent Tuberculosis: Received sparse records from [facility] from 2020 with a portal conversation Justin had with her MD indicating that she had a + Quantiferon gold and needed a chest xray. No chest xray report. It was also recommended she see ID. I do not have any provider records with a plan r/t TB diagnosis. I recommend she be seen by family medicine or ID for evaluation and to determine if any treatment is indicated. Patient reluctant to have further eval. See triage note. Records send in portal task from patient: Positive QuantiFERON on 06/21/20. Chest Xray that normal on 06/28/20. Diagnosis: Latent TB and referral for treatment Defer treatment until . ID referral will need to be placed: Declined ID referral, prefers to speak to MFM Recommend 2 views chest radiography: normal 01/21/24 Ultrasounds: 07/29/2023: Ultrasound: Viable johnson IUP after IVF cycle at 8w1d based on date of embryo transfer. Appropriate growth and normal heart rate normal. Final [facility] 03/08/2024. 10/15/2023: Level two ultrasound: Johnson intrauterine with good activity. Size is consistent with dates. Marginal cord insertion. There were no abnormalities or sonographic soft markers of aneuploidy. Normal fluid. Normal uterus and adnexa. Anterior placenta previa. EFW at the 92nd percentile. Recommend reassessment of placentation and growth at 28-32 weeks. 11/16/2023: echo at [place], results normal. 12/24/2023 Growth US at [place]: EFW 1509 g (67%), AC 88%, MVP 5.31 cm, persistent anterior low-lying placenta, 1.2 cm from internal os. Repeat assessment recommended in 4-6 weeks. 01/14/2024: EFW 2075 g (60%), BPD <3rd%, HC 17%, AC 91%, FL 33%, SDP 6.8 cm, anterior placenta with possible placental coleman up to 2.5 cm Flu: Up to date Covid: Up to date TDAP: 02/08/24 RSV: 02/11/2024 H&P: By Dr. Lemon on 02/18/24 OB - Problem Based A/P Additional Plan (1) : Status: Acute (2) Gestational diabetes: Problem details: GDMA2 Status: Acute (3) Advanced maternal age (AMA) in : Status: Acute Plan Unfavorable cervix. Using aseptic technique, Cook catheter placed for cervical ripening. Intra uterine and intravaginal balloons inflated to a total of 60 mL. We will begin low-dose Pitocin for further cervical ripening at 9:00 p.m. tonight. I anticipate removal of Cook catheter after 12 hours and increase in Pitocin to usual augmentation doses. Continuous monitoring throughout Pitocin use. Regarding gestational diabetes: We will use half of her usual dose of NPH insulin tonight, which would equal 4 units. Delivery/Labor/Induction Plan Induction method: Intracervical balloon catheter OB Result Labs GBS Status: negative OB Exam Physical Exam Vital signs: Pulse BP Pulse Ox 75 99/67 98 02/29/24 16:12 02/29/24 16:12 02/29/24 16:09 Narrative: Physical exam: General: No acute distress Psych: Alert and oriented x3, full affect HEENT: Normocephalic, atraumatic Neck: No cervical adenopathy, no thyromegaly Heart: Regular rate and rhythm, no murmur rub or gallop Lungs: Clear to auscultation bilaterally Abdomen: Soft, nontender, gravid, cephalic lie, EFW of 7 lb Lower extremities: No edema or erythema Cervical exam: 1.5 cm / 75% / -3 station / posterior / soft tracing: Baseline 150 / accelerations present / no decelerations / moderate variability. Infrequent contractions.
[2024-02-29 19:03] LABS: Basophils Absolute Auto 0.02 K/uL (0.00-0.30); Basophils Percent Auto 0.2 % (0.0-3.0); Eosinophils Absolute Auto 0.17 K/uL (0.00-0.50); Eosinophils Percent Auto 1.9 % (0.0-7.0); Hematocrit 40.9 % (33.0-51.0); Hemoglobin* 13.6 gm/dL (12.0-16.0); Immature Granulocytes Abs Auto 0.07 K/uL (0.00-0.30); Immature Granulocytes Pct Auto 0.8 %; Lymphocytes Absolute Auto 2.05 K/uL (0.90-2.90); Lymphocytes Percent Auto 22.6 % (20-44); Mean Corpuscular HGB Conc 33 gm/dL (32-36); Mean Corpuscular Hemoglobin 31 pg (26-34); Mean Corpuscular Volume 94 fL (80-100); Monocytes Percent Auto 8.9 % (0.0-11.0); Neutrophils Absolute Auto 5.97 K/uL (1.7-7.0); Neutrophils Percent Auto 65.6 % (42.0-72.0); Platelet Count* 269 K/uL (140-440); RDW Coefficient of Variation % 12.9 % (11.5-15.5); Red Blood Count 4.37 m/uL (4.00-5.20); White Blood Count* 9.09 K/uL (4.50-11.00)
[2024-02-29 19:05] LABS: Slide Review Reflex No
[2024-02-29] MEDS: OXYTOCIN 30 unit/500 ML in NS 30 UNIT/500 ML BAG IVPB (21:23)
[2024-02-29] MEDS: LACTATED RINGERS 1000 ML 1,000 ML 30 ML IV (21:24)
[2024-02-29] MEDS: MORPHINE 10 MG/ML inj IM (21:57)
[2024-02-29] MEDS: hydrOXYzine pamoate 25 MG CAPSULE 100 MG PO (21:58)
[2024-02-29] MEDS: INSULIN NPH 100 UNIT/ML SUBCUT (22:02)
[2024-02-29] MEDS: INSULIN ASPART 100 UNIT/ML SUBCUT (22:03)
[2024-03-01] VITALS (218 sets, daily range): BP systolic 59–150; BP diastolic 28–76; PULSE 58–124; RESP 16–25; TEMP 36.6–38.3; O2SAT 92–100
--- NOTE | 2024-03-01 08:05 | PM.OBPNL ---
Subjective Time Seen by Provider: 07:40 Date Seen: 03/01/24 Narrative: The patient feels well this morning. She describes her contractions as similar to bad menstrual cramps, rating them of 3-4/10. The Cook catheter came out at about 0515 this morning. Shortly thereafter, she experienced spontaneous rupture of membranes. She is still leaking clear fluid. She also developed some variable and occasional late decelerations of the heart rate tracing after membrane rupture, and the Pitocin infusion was turned off and the patient repositioned. heart rate tracing then became more reactive. Fasting blood sugar this morning was 95. Objective Vital Signs: Last Vital Signs Temp 98.1 F 03/01/24 03:57 Pulse 64 03/01/24 04:38 BP 96/62 03/01/24 04:38 Pulse Ox 96 03/01/24 06:42 Pelvic Exam Dilation (cm): 8 Effacement (%): 95 Station: 0 Contractions Monitor mode: External Contraction Frequency: q1-4 minutes Contraction pattern: Irregular Contraction intensity: Moderate Pitocin Rate (mU/min): 0 Assessment Assessment: active labor Station: 0 Amniotic Membrane Status: SROM Status: Category l Heart Rate Baseline: 145 Monitor Accelerations: Present Monitor Decelerations: None Plan Plan: Plan to restart Pitocin at two milliunits per minute. Discussed pain control options with patient. She had been planning epidural. Will eat breakfast and then reassess pain. Anticipated vaginal delivery.
[2024-03-01] MEDS: ROPIVACAINE 0.2 % PF 10 ML INJ 20 MG EPIDURAL (09:21)
[2024-03-01] MEDS: ROPIVACAINE 0.2% 100 ml 100 ML 12 MG EPIDURAL (09:28)
--- NOTE | 2024-03-01 09:51 | A.ANBPCNMD_ITS ---
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 Nonsmoker. What is your current living situation?: I presently have a place to live Problems where you live: no known problems In the past 12 months, utilities in danger of being shut off: no In past 12 months, lack of transportation kept you from medical appts, meetings, work, or getting things needed for daily living: yes In the past 12 mos, have been you worried that your food would run out before you had money to buy more?: never true In the past 12 mos, the food you bought just didn't last and you didn't have money to buy more?: never true Smoking Status: Never smoker Do you use any of these nicotine containing products: None How often do you have a drink containing alcohol: never How often do you have six or more drinks on one occasion: Never AUDIT-C Alcohol total score: 0 Non-prescribed substance use: denies use Caffeine: Yes (rarely) How often does anyone, including family, friends and others, physically hurt you : never How often does anyone, including family, friends and others, insult or talk down to you: never How often does anyone, including family, friends and others, threaten you with harm: never How often does anyone, including family, friends and others, scream or curse at you: never Little interest or pleasure in doing things: not at all Feeling down, depressed, or hopeless: not at all Meds Home Medications and Allergies Allergies Allergy/AdvReac Type Severity Reaction Status Date / Time No Known Drug Allergies Allergy Verified 02/25/24 08:48 Results Labs Labs: Laboratory Results - last 24 hr 02/29/24 18:30 WBC 9.09 RBC 4.37 Hgb 13.6 Hct 40.9 MCV 94 MCH 31 MCHC 33 RDW Coeff of Kirill 12.9 Plt Count 269 Neut % (Auto) 65.6 Lymph % (Auto) 22.6 Mchenry % (Auto) 8.9 Eos % (Auto) 1.9 Baso % (Auto) 0.2 Neut # (Auto) 5.97 Lymph # (Auto) 2.05 Mchenry # (Auto) 0.80 Eos # (Auto) 0.17 Baso # (Auto) 0.02 Abs Immat Gran (auto) 0.07 Imm/Tot Granulo (auto) 0.8 Blood Type O Positive Antibody Screen NEGATIVE Vital Signs Vital Signs: Last Vital Signs Temp 98.2 F 03/01/24 09:48 Pulse 75 03/01/24 09:49 Resp 25 H 03/01/24 09:48 BP 113/75 03/01/24 09:49 Pulse Ox 99 03/01/24 09:46 Weight: 70.307 kg Height: 154.94 cm Anesthesia Procedures - MDA Epidural Insertion Patient Location: OB Start Time: 08:50 Stop Time: 09:40 Start Date: 03/01/24 Stop Date: 03/01/24 Reason for Block: primary anesthetic Patient Position: sitting Performed By: Jitendra Tierney Preanesthetic Checklist: IV checked, risks and benefits discussed, surgical consent, monitors and equipment checked, pre-op evaluation, timeout performed and anesthesia consent Prep: chlorhexidine gluconate Monitoring: blood pressure monitoring, monitoring tech, continuous pulse oximetry and heart rate Approach: midline Vertebral Space: lumbar (1-5) Epidural Technique: HALLE air and HALLE saline Needle Type: Tuohy needle Injection Technique: continuous catheter (catheter) Needle gauge: 17 Needle Length (cm): 10 cm Needle Insertion Depth (cm): 5 Catheter Gauge: 19 Catheter Type: multi-orifice Catheter at skin depth (cm): 11 Test Dose Result: negative and lidocaine 1.5% with epinephrine 1 to 200,000
[2024-03-01] MEDS: PHENYLEPHRINE 100 MCG/ML SYRINGE IVP ×10 (10:45→18:20)
[2024-03-01] MEDS: LACTATED RINGERS 1000 ML 1,000 ML 125 ML IV ×2 (12:05→15:05)
[2024-03-01] MEDS: ACETAMINOPHEN 500 MG TABLET 1000 MG PO (12:56)
[2024-03-01 13:16] LABS: Basophils Percent Auto 0.2 % (0.0-3.0); Eosinophils Percent Auto 0.8 % (0.0-7.0); Hematocrit 37.3 % (33.0-51.0); Hemoglobin* 12.5 gm/dL (12.0-16.0); Immature Granulocytes Pct Auto 0.3 %; Lymphocytes Percent Auto 9.4 % (20-44); Mean Corpuscular HGB Conc 34 gm/dL (32-36); Mean Corpuscular Hemoglobin 32 pg (26-34); Mean Corpuscular Volume 95 fL (80-100); Monocytes Percent Auto 8.6 % (0.0-11.0); Neutrophils Percent Auto 80.7 % (42.0-72.0); Platelet Count* 221 K/uL (140-440); Red Blood Count 3.94 m/uL (4.00-5.20); White Blood Count* 12.71 K/uL (4.50-11.00)
[2024-03-01 13:18] LABS: Slide Review Reflex No
[2024-03-01] MEDS: ePHEDrine sulfate 5 MG/ML inj 10 MG IVP ×2 (13:43→15:26)
--- NOTE | 2024-03-01 13:49 | PC.SOCIAL ---
Spoke with OB RN regarding a social worker delinquency prevention consult on pt. No needs identified. RN will update social work if a need arises.
[2024-03-01] MEDS: AMPICILLIN 2 GM in 0.9 % SODIUM CHLORIDE Mini-bag 100 ML IVPB (14:35)
[2024-03-01] MEDS: CLINDAMYCIN 900 MG/50 ML-D5W 900 MG/50 ML PIGGYBACK 100 MG IVPB (17:57)
--- NOTE | 2024-03-01 18:14 | PM.OBPNL ---
Subjective Date Seen: 03/01/24 Narrative: The patient remains comfortable with the epidural, but was started get a little bit of sensation back while sitting up in thrones position. She continues to leak a small amount of clear fluid from the vagina. Objective Vital Signs: Last Vital Signs Temp 99.8 F H 03/01/24 17:23 Pulse 75 03/01/24 18:12 Resp 18 03/01/24 16:45 BP 99/56 L 03/01/24 18:12 Pulse Ox 96 03/01/24 18:11 O2 Del Method Nasal Cannula 03/01/24 16:45 O2 Flow Rate 1 03/01/24 16:45 Pelvic Exam Dilation (cm): 9 Effacement (%): 100 Station: 0 to 1+ Comments: Cervical exam unchanged from exam done at 4:30 p.m. Contractions Monitor mode: External Contraction Frequency: q2-5 minutes Contraction pattern: Irregular Contraction intensity: Moderate Pitocin Rate (mU/min): 6 Assessment Assessment: induction ongoing Station: 0 Amniotic Membrane Status: SROM Status: Category ll Heart Rate Baseline: 150 Provider Relations Manager Variability: Minimal (3-5) Monitor Accelerations: Present Monitor Decelerations: Variable Labor Progress: Arrest of dilatation and descent, dysfunctional labor pattern despite Pitocin augmentation of labor and intrauterine pressure catheter monitoring of contractions. Plan Plan: Recommend proceeding with delivery. Informed consent for section obtained. OR staff and Anesthesia notified. Patient has received ampicillin and gentamicin for chorioamnionitis. Will add a dose of clindamycin prior to surgery.
[2024-03-01] MEDS: AZITHROMYCIN 500 MG in 0.9 % SODIUM CHLORIDE 250 ml 250 ML 255 MG IVPB (18:39)
[2024-03-01] MEDS: TRANEXAMIC ACID 100 MG/ML INJ 1000 MG IV (19:08)
[2024-03-01] MEDS: KETOROLAC 30 MG/ML inj IVP (19:38)
--- NOTE | 2024-03-01 19:47 | P.OBPRC_ITS ---
Procedure Date of procedure: 03/01/24 Pre-op diagnosis: 1. Arrest of dilation and descent. 2. Chorioamnionitis. 3. Dysfunctional labor pattern. 4. GDMA2. Post-op diagnosis: same (+ 5. OP position.) Procedure Done: Global Will [facility] bill your pro fee for this procedure?: Yes Blood Loss Measurement Type: QBL (482 mL) Bakri Used: No IV fluids (mL): 850 Urine Output (mL): 175 Surgeon: Janie Ceballos MD Anesthesia Type: Epidural and TAP Block Findings: Liveborn male infant, cephalic presentation, direct OP position. Normal uterus, tubes and ovaries. Procedure Name: Primary low transverse section. Procedure Description: After obtaining informed consent, the patient was taken to the operating room where spinal anesthesia was obtained and found to be adequate. She was prepared and draped in the normal sterile fashion in the dorsal supine position with a leftward tilt. A Pfannenstiel skin incision was made with a sca lpel. This incision was carried down to the underlying layer of fascia with the Bovie. The fascia was incised in the midline and the incision extended laterally. The superior and inferior aspects of the fascial incision were grasped with Leon clamps, elevated and the underlying rectus muscles dissected off sharply and with electrocautery. The rectus muscles were then in the midline. The Vic O retractor was then placed into the incision. The lower uterine segment was then incised in a transverse fashion with the scalpel. Upon entry into the uterus, clear amniotic fluid was noted. The uterine incision was extended laterally with blunt finger fractionation. The infant's head was delivered atraumatically, followed by the remainder of the infant's body. The nose and mouth were suctioned with the bulb suction. The cord was doubly clamped and cut, and the infant was handed off the field to the biometrics consultant for evaluation. The placenta was delivered spontaneously with umbilical cord traction and fundal massage. The uterus was cleared of all clots and debris. The uterine incision was reapproximated in a running locking fashion with a 0 chromic suture. A 2nd layer of the same suture was used to imbricate in horizontal fashion. The gutters were irrigated and suctioned. All instruments and retractors were removed. The anterior peritoneum was reapproximated in a running fashion with a 3-0 Vicryl suture. The subfascial tissues were carefully inspected and hemostasis assured. The fascia was reapproximated in a running fashion with a looped 0 Maxon suture. The subcutaneous tissues were copiously irrigated. Hemostasis was assured. The subcutaneous fat layer was reapproximated with interrupted sutures of 3-0 plain gut. The skin was closed in a subcuticular fashion with 4-0 Vicryl. Surgical glue and dressing were applied. A TAP block was administered by the LANDSCAPE AND YARDWORK LABORER. The patient tolerated the procedure well. Sponge, lap, needle, and instrument counts were reported as correct x2. The patient was taken to the recovery room, awake, and in stable condition. She received Ampicillin and Gentamicin in labor for chorioamnionitis and 900 mg Clindamycin and 500 mg of IV Azithromycin preoperatively. Pathology: specimen obtained, sent to pathology (placenta) Surgery Debrief Performed: Yes Condition: stable Disposition: floor
--- NOTE | 2024-03-01 20:18 | P.ANES_ITS ---
Anesthesia Charges Start Date/Time Anesthesia Start Date: 03/01/24 Anesthesia Start Time: 18:34 Stop Date/Time Anesthesia Stop Date: 03/01/24 Anesthesia Stop Time: 20:04 Summary Emergency: COST ESTIMATOR
--- NOTE | 2024-03-01 20:19 | P.NB_ITS ---
Nerve Block Nerve Block Time Seen by Provider: 19:50 Date Seen: 03/01/24 Type of block requested by surgeon for post-operative analgesia: TAP Side: bilateral Time out performed: Yes Verification of patient name: Yes Verification of date of : Yes Site marking: not applicable Name of person performing procedure: tamiko Continuous monitoring Was continuous monitoring of O2 sat, B/P, quality assurance monitor chassis, recorded every 15 minutes?: Yes Procedure Checklist: sterile prep, needles and gloves Ultrasound guided. Images saved: Yes Medications given in 5ml increments after negative aspiration: Marcaine %: 0.25 mL: 30 Needle gauge: 20 and Exparel mL: 10 Patient tolerated procedure well: Yes Block Charges Block Charge (with Pro Fee): TAP Bilateral Use of Ultrasound Machine for Block: Yes- US Guidance/pain block
[2024-03-02] VITALS (22 sets, daily range): BP systolic 72–87; BP diastolic 45–56; PULSE 65–90; RESP 16–17; TEMP 36.5–37.2; O2SAT 97–98
[2024-03-02] MEDS: KETOROLAC 30 MG/ML inj IVP ×3 (01:53→23:18)
[2024-03-02 07:11] LABS: Hemoglobin* 10.2 gm/dL (12.0-16.0)
--- NOTE | 2024-03-02 07:25 | PM.OBPNVD1 ---
OB - PN:Subj Subjective Date Seen: 03/02/24 Narrative: The patient feels well.? The pain is well controlled with current medications.? She has no new complaints.? Urinary output is adequate but she has not yet voided since catheter was removed within the last couple of hours.? Has a good appetite, is tolerating a general diet, is passing flatus, and has not had a bowel movement.? Has scant/small/moderate amount of rubra lochia.? She is standing at bedside with no issues. She is and reports it is going well, but is uncomfortable with not knowing how much the baby is getting.? OB - PN: Obj Exam Physical Exam: Vital signs: Temp Pulse Resp BP Pulse Ox O2 Del Method O2 Flow Rate 97.7 F 80 16 80/46 L 98 Room Air 1 03/02/24 04:38 03/02/24 04:38 03/02/24 06:29 03/02/24 04:38 03/02/24 04:38 03/02/24 04:38 03/01/24 21:13 Narrative: GENERAL APPEARANCE:? normal affect, alert, no distress MOOD:? appropriate CHEST:? clear to auscultation HEART:? regular rate and rhythm ABDOMEN:? soft, non-tender the uterine fundus is 1 cm above Umbilicus and off right, encourage to try to void soon and is appropriate for the stage of recovery. EXTREMITIES:? normal and minimal edema Incision: Surgical dressing intact with no surrounding erythema, or discharge OB - PN: Obj Data Labs Labs: Laboratory Results - last 24 hr 03/01/24 13:08 WBC 12.71 H RBC 3.94 L Hgb 12.5 Hct 37.3 MCV 95 MCH 32 MCHC 34 RDW Coeff of Kirill 13.0 Plt Count 221 Neut % (Auto) 80.7 H Lymph % (Auto) 9.4 L [place] % (Auto) 8.6 Eos % (Auto) 0.8 Baso % (Auto) 0.2 Neut # (Auto) 10.30 H Lymph # (Auto) 1.20 [place] # (Auto) 1.10 H Eos # (Auto) 0.10 Baso # (Auto) 0.00 Abs Immat Gran (auto) 0.00 Imm/Tot Granulo (auto) 0.3 OB - PN: A/P Delivery Assessment and Plan (1) Gestational diabetes: Problem details: GDMA2 Status: Acute (2) Advanced maternal age (AMA) in : Status: Acute (3) S/P primary low transverse : Status: Acute Plan , may see if needed? Hgb 10.2. ? Hypotension of no concern without other concerning VS or symptoms 2 hour testing for DM tomorrow morning per routine Abdominal binder requested for support from nursing. Encouraged to try to void soon Labs WNL or stable with trending? Routine Care ? ? ? Plan day: 1 Plan: routine care
[2024-03-02] MEDS: DOCUSATE SODIUM 100 MG CAPSULE PO (15:58)
[2024-03-03 01:29] LABS: Rapid Plasma Reagin (RPR) Non Reactive (Non Reactive)
[2024-03-03 07:17] LABS: Glucose Fasting 82 mg/dl (70-95)
--- NOTE | 2024-03-03 07:48 | PM.OBDSVD1 ---
DS: Providers Provider Date Seen: 03/03/24 Date of admission: 02/29/24 15:40 Primary care physician: Fara Leiva DO Admitting Clinician: Myla Omer MD Consults: 02/29/24 16:47 Consult to Technical Project Manager [CONS] Routine Comment: Reason for Consult:: Social Service Consult Attending Physician on discharge: Peyton Burns CNM DS: Diagnosis Discharge Diagnosis (1) S/P primary low transverse : Status: Acute (2) care and examination immediately after delivery: Status: Acute Exam Narrative: Exam Narrative: GENERAL APPEARANCE:? normal affect, alert, no distress MOOD:? appropriate CHEST:? clear to auscultation HEART:? regular rate and rhythm ABDOMEN:? soft, non-tender the uterine fundus is [] cm At Umbilicus, Midline and is appropriate for the stage of recovery. PERINEUM:? mild edema of the perineum, there is a Perineal Laceration,? [] that is healing well. EXTREMITIES:? normal and [] edema [Incision]: [Healing well, no surrounding erythema, abnormal induration or discharge] Const: Vital Signs, click to edit/add: Vital Signs - 24 hr 03/02/24 08:00 03/02/24 08:23 03/02/24 09:23 Temperature 98.9 F Pulse Rate [Pulse Oximeter] 75 Respiratory Rate 16 16 16 Blood Pressure [Le ft Arm] 81/52 L Pulse Oximetry 98 Oxygen Delivery Me thod Room Air Oxygen Flow Rate 1 03/02/24 10:23 03/02/24 11:23 03/02/24 12:23 Temperature Pulse Rate [Pulse Oximeter] Respiratory Rate 16 16 16 Blood Pressure [Le ft Arm] Pulse Oximetry Oxygen Delivery Me thod Oxygen Flow Rate 03/02/24 13:00 03/02/24 13:23 03/02/24 14:23 Temperature 98.9 F Pulse Rate [Pulse Oximeter] 85 Respiratory Rate 16 16 16 Blood Pressure [Le ft Arm] 74/46 L Pulse Oximetry 98 Oxygen Delivery Me thod Room Air Oxygen Flow Rate 0 03/02/24 15:23 03/02/24 16:07 03/02/24 16:23 Temperature 97.9 F Pulse Rate [Pulse Oximeter] 90 Respiratory Rate 17 16 17 Blood Pressure [Le ft Arm] 76/45 L Pulse Oximetry 98 Oxygen Delivery Me thod Oxygen Flow Rate 03/02/24 23:20 Temperature 98.1 F Pulse Rate [Pulse Oximeter] 65 Respiratory Rate 16 Blood Pressure [Le ft Arm] 87/56 L Pulse Oximetry 98 Oxygen Delivery Me thod Room Air Oxygen Flow Rate OB - DS: Summary Hospital Course Hospital Course: Justin is a 38 y.o. G 3 P 1 who was admitted to [facility] for spontaneous onset of labor. ?She had a section that was uncomplicated. The patient feels well. ?The pain is well controlled with current medications. ?She has no new complaints. ?She is breast feeding and reports things are going [well]. the patient has done well.? Vitals have been stable.? She has remained afebrile.? Has a good appetite, is tolerating a general diet. ?She is voiding without difficulty.? She is passing gas and has [not] had a bowel movement.? She is ambulating and denies any dizziness.? Has small amount of rubra lochia. She is planning [] for prevention. Problems: non plan: Discharge home with baby. Follow up in 2 weeks and 6 weeks. , may see if needed Hgb 10.2. GDM, completing 2 hour gct this morning. [GHTN/Pre-E/Elevated BP diagnosed by elevated BP greater than 4 hours apart] [Labs WNL or stable with trending] [Discharge home with BP cuff if does not already have one] [Follow up in 3-5 days] [Call for signs/symptoms of preeclampsia] Peripartum Data Procedures: Procedures Operation Date: 03/01/24 18:45 Actual Procedure Side Surgeon p Section Not Applicable Janie Ceballos MD Infant Gender: Male Time Spent with Patient Time attestation: Total time spent providing and/or coordinating discharge services: Discharge Plan Discharge Date of Admission: 02/29/24 15:40 Attending Physician on Admission: Janie Ceballos Primary Care Provider: Fara Leiva Discharge Medications: No Action Humulin N NPH U-100 Insulin 100 unit/mL suspension 8 unit subcut .hs Qty: 30 1RF Rx Instructions: 8 U NPH at HS (DME) insulin syringe-needle U-100 [Sure Comfort Insulin Syringe] 1 mL 30 gauge x 5/16 syringe See Rx Instructions .ROUTE .MEDSUPPLY Qty: 100 3RF Rx Instructions: As directed alcohol swabs [Alcohol Prep Pads] Pads, Medicated 1 pad topical .d Qty: 100 2RF (DME) lancets Misc See Rx Instructions .MEDSUPPLY Qty: 100 3RF Rx Instructions: Test blood sugar 4 times daily. aspirin 81 mg tablet,chewable 81 mg PO QDAY Qty: 60 2RF (DME) Test Strips Misc See Rx Instructions .MEDSUPPLY Qty: 100 3RF Rx Instructions: Test blood sugar 4 times daily. (DME) Blood Glucose Meter Misc See Rx Instructions .MEDSUPPLY Qty: 1 0RF Rx Instructions: As directed Classic 28 mg iron- 800 mcg tablet 1 tab PO .QD Qty: 60 1RF Follow Up Appointments: Fara Leiva DO [Primary Care Provider] -
[2024-03-03 08:15] VITALS: BP 87/56; PULSE 82; RESP 16; TEMP 36.7; O2SAT 98
[2024-03-03 08:39] LABS: Glucose 2 Hour 185 mg/dl (70-155)
--- NOTE | 2024-03-03 08:48 | PC.NURSE ---
03/02/24, RN continued to offer pain meds to patient throughout shift, patient denied wanting IV toradol or Oral medication. Pt continued to report pain is tolerable. No pain meds given per patient request
[2024-03-03] MEDS: DOCUSATE SODIUM 100 MG CAPSULE PO (10:40)
--- NOTE | 2024-03-03 13:48 | PM.OBPNVD1 ---
OB - PN:Subj Subjective Date Seen: 03/03/24 Narrative: Justin is a 38 y.o. G 3 P 1 who was admitted to [facility] for spontaneous onset of labor. ?She had a section that was uncomplicated. The patient feels well. ?The pain is well controlled with current medications. ?She has no new complaints. ?She is breast feeding and reports things are going ok. Having some difficulty with latching and desires to stay another night to have additional support. the patient has done well.? Vitals have been stable.? She has remained afebrile.? Has a good appetite, is tolerating a general diet. ?She is voiding without difficulty.? She is passing gas and has not had a bowel movement.? She is ambulating and denies any dizziness.? Has small amount of rubra lochia. Patient is in process of completing her 2 hour gct. Problems: low BP OB - PN: Obj Exam Physical Exam: Vital signs: Temp Pulse Resp BP Pulse Ox O2 Del Method O2 Flow Rate 98.1 F 82 16 87/56 L 98 Room Air 0 03/03/24 08:15 03/03/24 08:15 03/03/24 08:15 03/03/24 08:15 03/03/24 08:15 03/03/24 08:15 03/03/24 08:15 Narrative: GENERAL APPEARANCE:? normal affect, alert, no distress MOOD:? appropriate CHEST:? clear to auscultation HEART:? regular rate and rhythm ABDOMEN:? soft, non-tender the uterine fundus is at Umbilicus, Midline and is appropriate for the stage of recovery. EXTREMITIES:? normal and no edema INCISION: Healing well, no surrounding erythema, abnormal induration or discharge OB - PN: Obj Data Labs Labs: Laboratory Results - last 24 hr 02/29/24 03/03/24 18:30 05:51 Glucose Tolerance RPR Screen Non Reactive OB - PN: A/P Delivery Assessment and Plan (1) care and examination immediately after delivery: Status: Acute (2) S/P primary low transverse : Status: Acute (3) Gestational diabetes: Problem details: GDMA2 Status: Acute Plan Plan: routine care Comments: plan: Routine postop care. , may see if needed Hgb 10.2. GDM, completed 2 hour gtt this morning. Failed 2 hour gtt, recommended to establish care with primary for further evaluation of Diabetes outside . Low BP, asymptomatic Anticipate discharge tomorrow
--- NOTE | 2024-03-03 19:25 | PC.NURSE ---
Nursing Care Hours: [id number] pt this shift was feeding upon start of shift. Candles Pourer instructed pt to call when done. Pt never called for help. Candles Pourer occupied with other pt cares and did not get VS done. Checked in at end of shift and pt says no c/o pain. Reports feedings going well.
[2024-03-03 20:54] VITALS: BP 95/68; PULSE 85; RESP 16; TEMP 36.6; O2SAT 97
[2024-03-03] MEDS: IBUPROFEN 600 MG TABLET PO (21:00)
[2024-03-03 23:00] VITALS: BP 91/61; PULSE 73; RESP 16; TEMP 36.4; O2SAT 98
[2024-03-04] MEDS: LANOLIN CREAM 1 APPLIC TOPICAL (05:26)
[2024-03-04 08:54] VITALS: BP 105/66; PULSE 72; RESP 18; TEMP 36.4; O2SAT 100
[2024-03-04] MEDS: DOCUSATE SODIUM 100 MG CAPSULE PO (09:17)
--- NOTE | 2024-03-04 09:31 | PM.OBDSVD1 ---
DS: Providers Provider Date Seen: 03/04/24 Date of admission: 02/29/24 15:40 Primary care physician: Fara Leiva DO Admitting Clinician: Myla Omer MD Consults: 02/29/24 16:47 Consult to Open Hearth Helper [CONS] Routine Comment: Reason for Consult:: Social Service Consult Attending Physician on discharge: Myla Omer MD Date of Discharge: 03/04/24 DS: Diagnosis Discharge Diagnosis (1) S/P primary low transverse : Status: Acute (2) Gestational diabetes: Status: Acute Problem details: GDMA2 (3) Latent tuberculosis: Status: Acute Problem details: Latent, untreated TB per chart review. Patient reports chest x-ray normal, denies treatment (4) Prediabetes: Status: Acute Exam Narrative: Exam Narrative: General: Pleasant, no acute distress Heart: Regular rate and rhythm, no murmur or gallop Lungs: Clear to auscultation bilaterally Abdomen: Normoactive bowel sounds. Soft, nontender, fundus well below umbilicus. Incision clean, dry, and intact. Skin of the abdomen has patches of erythematous micropapular rashes, which she reports are itchy, but improving. Lower extremities: Trace bilateral edema, no erythema Const: Vital Signs, click to edit/add: Vital Signs - 24 hr 03/03/24 20:54 03/03/24 23:00 03/04/24 08:54 Temperature 97.8 F 97.6 F 97.6 F Pulse Rate [Pulse Oximeter] 85 73 72 Respiratory Rate 16 16 18 Blood Pressure [Le ft Arm] 95/68 91/61 105/66 Pulse Oximetry 97 98 100 Oxygen Delivery Me thod Room Air Room Air Room Air OB - DS: Summary Hospital Course Hospital Course: Justin is a 38 yo G3 now P1-0-2-1 woman who is s/p primary delivery for arrest of dilation at 39 0/7 weeks' gestation on 03/01/24. OB Problem List: # GDMA2 diabetes - Pre-diabetic at beginning of . - First diagnosed in 10/21/2023 = 20 weeks due to early gtt of 207 - Last A1C 5.7 on 08/21/23 - On LDA - Nutrition referral placed. Will start monitoring her BG. Supplies given - s/p normal anatomy scan with the exception of placenta previa - ECHO scheduled for November 15: Normal - Will send glucose log via portal after 1 week of monitorin11/02/2023 log reviewed, continue dietary modification/QID testing. - Refer to August for insulin therapy due to elevated fastings - 12/16/2023: 8 units NPH at at bedtime. Increased to 9 units on 01/09 and increased to 10 units on 01/13. - twice weekly testing starting at 32 weeks. Growth ultrasound q.4 weeks starting at 32 weeks. testing form completed 12/16/2023. - Recommend IOL at 39 weeks due to IVF, AMA, GDMA2, Marginal cord insertion (form filled out for cervical ripening on 02/28 at 38w6d - patient to turn in consent form and have cervical exam on 02/24) # Placenta previa Reassess placental location at 32 weeks: scheduled at [facility] 12/24/23: Persistent anterior low lying placenta, inferior edge 1.2 cm from internal os. No Vasa previa. Repeat ultrasound 01/20: resolved! # Marginal cord insertion noted on level 2 US from 10/14, not mentioned on subsequent scans # IVF: -20 week level II detailed ultrasound with ECHO, consult with MFM. -No further testing if normal results. -Consider growth ultrasound at 28-32 weeks: scheduled at [facility] -Testing as for GDMA2 # AMA: Will be 38 years old at [facility]. -Recommend Genetic Screening Test -20 week level II detailed ultrasound, consult with MFM. -LDA recommend. Patient will start now at 15w # Latent Tuberculosis: Received sparse records from [facility] from 2020 with a portal conversation Justin had with her MD indicating that she had a + Quantiferon gold and needed a chest xray. No chest xray report. It was also recommended she see ID. I do not have any provider records with a plan r/t TB diagnosis. I recommend she be seen by family medicine or ID for evaluation and to determine if any treatment is indicated. Patient reluctant to have further eval. See triage note. Records send in portal task from patient: Positive QuantiFERON on 06/21/20. Chest Xray that normal on 06/28/20. Diagnosis: Latent TB and referral for treatment Defer treatment until . ID referral will need to be placed: Declined ID referral, prefers to speak to MFM Recommend 2 views chest radiography: normal 01/21/24 She was diagnosed with chorioamnionitis during her intrapartum course and received ampicillin, gentamicin and clindamycin. She had an uncomplicated delivery. She delivered a viable male infant. She is breast feeding. the patient has done well. Her last elevated temp was 100.1 at 1631 on 03/01/24. Today, on POD #3, she reports feeling well. She is ambulating without difficulty. Pain is well managed on intermittent doses of ibuprofen alone. She reports the bleeding is lessening. She is tolerating a regular diet. She is still working on breast milk production, but has not had much. She is putting baby to breast and then feeding with formula at this point. Peripartum Data Procedures: Procedures Operation Date: 03/01/24 18:45 Actual Procedure Side Surgeon p Section Not Applicable Janie Ceballos MD [place] Gender: Male Time Spent with Patient Time attestation: Total time spent providing and/or coordinating discharge services: Discharge Plan Discharge Disposition: Home, Self-Care Date of Admission: 02/29/24 15:40 Attending Provider on Discharge: Myla Omer Primary Care Provider: Fara Leiva Condition: Stable Anticipated Discharge Date/Time: 03/04/24 10:03 Discharge Medications: New acetaminophen 500 mg Tablet 1,000 mg PO Q6H PRN (Reason: Pain) Qty: 0 0RF docusate sodium 100 mg Capsule 100 mg PO DAILY PRN (Reason: Constipation) Qty: 30 0RF ibuprofen 600 mg Tablet 600 mg PO Q6H PRN (Reason: Pain) Qty: 60 0RF oxycodone 5 mg Tablet 5 - 10 mg PO Q4H PRN (Reason: Pain) Qty: 10 0RF Lanolin (HPA) 100 % Cream 1 applic topical Q1H PRNQty: 0 0RF ferrous sulfate 325 mg (65 mg iron) tablet 325 mg PO Q OTHER DAY Qty: 30 0RF Continued Classic 28 mg iron- 800 mcg tablet 1 tab PO .QD Qty: 60 1RF Discontinued Humulin N NPH U-100 Insulin 100 unit/mL suspension 8 unit subcut .hs Qty: 30 1RF Rx Instructions: 8 U NPH at HS (DME) insulin syringe-needle U-100 [Sure Comfort Insulin Syringe] 1 mL 30 gauge x 5/16 syringe See Rx Instructions .ROUTE .MEDSUPPLY Qty: 100 3RF Rx Instructions: As directed alcohol swabs [Alcohol Prep Pads] Pads, Medicated 1 pad topical .d Qty: 100 2RF (DME) lancets Misc See Rx Instructions .MEDSUPPLY Qty: 100 3RF Rx Instructions: Test blood sugar 4 times daily. aspirin 81 mg tablet,chewable 81 mg PO QDAY Qty: 60 2RF (DME) Test Strips Misc See Rx Instructions .MEDSUPPLY Qty: 100 3RF Rx Instructions: Test blood sugar 4 times daily. (DME) Blood Glucose Meter Misc See Rx Instructions .MEDSUPPLY Qty: 1 0RF Rx Instructions: As directed Discharge Orders: Discharge Order (Routine); Ordered 03/04/24 Ordered By: Myla Omer Patient Education: OB /Breast Feeding Discharge Diet: Diabetic Follow Up Appointments: Fara Leiva DO [Primary Care Provider] - Myla mOer MD [Staff Physician] - Forms: [employer] Info Instructions Discharge Comments: Schedule visit with primary care provider at your convenience for management of diabetes / prediabetes. [facility] and 6 [facility]. DS:Data Additional Comments Additional comments: Hemoglobin 10.2 on postoperative day 1
--- NOTE | 2024-03-04 12:54 | PC.NURSE ---
shift note: pt up indept in room. pt states soft BM 03/03. Incision above pubis c/d/i and open to air. LS clr. vss stable. Belongings sent with pt at [place].
[2024-03-04] MEDS: IBUPROFEN 600 MG TABLET PO (13:09)
== END 2024-03-04 14:00 | disposition home or self-care (01) | DRG 786 ==
PROVIDERS: Obstetrics & Gynecology; Admitting Provider Obstetrics & Gynecology; PCP Family Medicine; Visit Provider Obstetrics & Gynecology
PROC: 10D00Z1 Extraction of Products of Conception, Low, Open Approach (ICD-10-PCS; CPT 59514; principal; 2024-03-01 18:30)
DX: O24.424 Gestational diabetes mellitus in childbirth, insulin controlled (principal); O41.1230 Chorioamnionitis, third trimester, not applicable or unspecified; O76 Abnormality in fetal heart rate and rhythm complicating labor and delivery; O32.4XX0 Maternal care for high head at term, not applicable or unspecified; O62.0 Primary inadequate contractions; Z22.7 Latent tuberculosis; Z3A.38 38 weeks gestation of pregnancy; Z37.0 Single live birth; G89.18 Other acute postprocedural pain
CPT/HCPCS: 01967; 01968; 36415; 59200; 64488; 76942; 82947; 82950; 82962; 85018; 85025; 86592; 86850; 86900; 86901; 88307; 99140; A9270; C1726; C9290; J0290; J0456; J0665; J0736; J1100; J1580; J1885; J2270; J2274; J2371; J2405; J2590; J2795; J7050; J7120

== ENCOUNTER 2024-03-15 15:36 | Outpatient (CLI) | payer OTHER, SELFPAY ==
--- OUTSIDE RECORDS SUMMARY | 2024-03-15 15:39 | XMS_ITS | Referral Summary ---
Author Organization [facility] Address [address] [place] [id number] Care Team Providers Care Home Agent Name Role Phone None Reported, Pcp Primary Care Provider Unavail able Source Comments Patient records contain information from all sites at [facility]. For routine questions regarding patient records, call [phone] during business hours, M-F 8:00 AM - 5:00 PM Central Time. Record requests for emergency care only can be directed to [phone] at any time.[facility] Encounters Date Type Department Care Team Description 12/24/2023 1:00 PM CDT Routine Department of Obstetrics and Gynecology in [place], [place] [address] [place] [address] Tiarra Panda M.D., Ph.D. Abnormal Ultrasound Placental Low Lying (Primary Dx); Diabetes Mellitus Gestational (HCC) 12/24/2023 10:59 AM CDT - 12/24/2023 11:59 PM CDT Hospital Encounter Department of Obstetrics and Gynecology in [place], [place] [address] [place] [address] Ariel Gunderson M.D. Encounter For Supervision Of Normal Unspecified Trimester (HCC) Discharge Disposition: Home or Self Care from Last 3 Months Allergies Active Allergy Reactions Criticality Noted Date Comments Pollen Extracts Cough 02/19/2023 Medications vit calc,iron,folic (PRENAT.VITS,DONNIE ,NIY-[id number]-JGNFA ORAL) Take 1 tablet by mouth. 09/18/2022 [...] your living situation today? 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 Not on file Last Filed Vital Signs Vital Sign Reading Time Taken Comments Blood Pressure 85/56 12/24/2023 12:09 PM CDT Pulse 73 12/24/2023 12:09 PM CDT Temperature 36.6 ??C (97.9 ??F) 06/16/2023 8:56 AM CS T Respiratory Rate 15 06/16/2023 10:2 2 AM MINE WIRER Oxygen Saturation 97% 12/24/2023 12: 09 PM CDT Inhaled Oxygen Concentration - - Weight 67.1 kg (147 lb 14.9 oz) 024 12:09 PM CDT Height 150 cm (4' 11.06) 07/08/2023 2:27 PM MINE WIRER Body Mass Index 29.82 07/08/2023 2:27 PM MINE WIRER Plan of Treatment Not on file Procedures [...] FOLLOW UP GROWTH AND TRANSVAGINAL Exam Site: [facility] OB #3 Plurality: 1 OBHx: [G:(3)] [...] Torri Franz R.D.M.S. on 12/24/2023 12:04:23 PM. Melt House Centrifugal Operator: ??Torri Franz R.D.M.SKelley Thank You For This Referral Procedure Note Sherry Ramirez M.D. - 12/24/2023 CHERYL DAWKINS OB Exam, 12/24/2023 EXAM INFORMATION Patient Name: CHERYL DAWKINS : 1985 Age: 38 yrs Sex: Female Ref Phys: ARIEL GUNDERSON Exam Date: 12/24/2023 Procedure: US OB FOLLOW UP GROWTH AND TRANSVAGINAL Exam Site: [facility] OB #3 Plurality: 1 OBHx: [G:(3)] [...] Torri Franz R.D.MKelleySKelley on 12/24/2023 12:04:23 PM. Melt House Centrifugal Operator: Torri Franz R.D.M.S. Thank You For [...] Result - Final [facility] [address] [place] [address] from Last 3 Months or Most Recently Relevant to Health Maintenance Insurance [facility] Advance Directives For more information, please contact: [phone] * Full Code (Latest Code Status on File) Date Activated Date Inactivated Comments 06/16/2023 10:32 AM 06/16/2023 12:59 PM Question Answer Comments Full Code: Discussed * Full Code Date Activated Date Inactivated Comments 06/16/2023 8:09 AM 06/16/2023 10:32 AM Question Answer Comments Full Code: Discussed Care Teams Home Agent Relationship Specialty Start Date End Date None Reported, Pcp PCP - General Family Medicine 06/16/23
--- OUTSIDE RECORDS SUMMARY | 2024-03-15 15:39 | XMS_ITS | Clinical Summary ---
Author Organization [facility] Address [address] [place] [address] Care Team Providers Care Director Of Sales Marketing Name Role Phone None Reported, Pcp Primary Care Provider Unavail able Source Comments Patient records contain information from all sites at [facility]. For routine questions regarding patient records, call [phone] during business hours, M-F 8:00 AM - 5:00 PM Central Time. Record requests for emergency care only can be directed to [phone] at any time.[facility] Allergies Active Allergy Reactions Criticality Noted Date Comments Pollen Extracts Cough 02/19/2023 Medications vit calc,iron,folic (PRENAT.VITS,DONNIE ,SAE-GTWF-UMPCF ORAL) Take 1 tablet by mouth. 09/18/2022 [...] Routine Department of Obstetrics and Gynecology in [place], [place] [address] [place] [address] Tiarra Panda M.D., Ph.D. Abnormal Ultrasound Placental Low Lying (Primary Dx); Diabetes Mellitus Gestational (HCC) 12/24/2023 10:59 AM CDT - 12/24/2023 11:59 PM CDT Hospital Encounter Department of Obstetrics and Gynecology in [place], [place] [address] [place] [address] Ariel Gunderson M.D. Encounter For Supervision Of [...] your living situation today? 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 Last Filed Vital Signs Vital Sign Reading Time Taken Comments Blood Pressure 85/56 12/24/2023 12:09 PM CDT Pulse 73 12/24/2023 12:09 PM CDT Temperature 36.6 ??C (97.9 ??F) 06/16/2023 8:56 AM CS T Respiratory Rate 15 06/16/2023 10:2 2 AM SOFTWARE CLERK Oxygen Saturation 97% 12/24/2023 12: 09 PM CDT Inhaled Oxygen Concentration - - Weight 67.1 kg (147 lb 14.9 oz) 024 12:09 PM CDT Height 150 cm (4' 11.06) 07/08/2023 2:27 PM SOFTWARE CLERK Body Mass Index 29.82 07/08/2023 2:27 PM SOFTWARE CLERK Plan of Treatment Health Maintenance Due Date Last Done Comments Cervical/Vaginal Cancer Screening 1985 HIV Screening 1985 Pneumococcal vaccine (0-64 years) (1 of 2 - PCV) 1991 Hepatitis B Vaccines (1 of 3 - 19+ 3-dose series) 2004 Depression Screening (Annual PHQ-2) 05/17/2023 COVID-19 Vaccine ( - 2023- season) 2024 03/02/2023, 03/17/2022, 06/12/2021, Additional history exists Influenza Vaccine (#1) 2024 , 03/24/2022, 02/06/2021, Additional history exists Lipid (Cholesterol) Screening 06/05/2027 06/05/2022, 03/19/2021 DTaP,Tdap,and Td Vaccines (3 - Td or Tdap) 02/07/2034 02/08/2024, 03/22/2019 Hepatitis C Screening Completed 09/04/2022 RSV vaccine - (32-36 weeks) or 60+ years Completed 02/11/2024 HPV Vaccines Aged Out No longer eligi ble based on patient's age to complete this topic IPV Vaccines Aged Out No longer eligi ble [...] UP GROWTH AND TRANSVAGINAL Exam Site: [facility] OB #3 Plurality: 1 OBHx: [G:(3)] ?F [...] Torri Franz R.D.M.SKelley on 12/24/2023 12:04:23 PM. Brass Roller: ??Torri Franz R.D.M.S. Thank You For This Referral Procedure Note Sherry Ramirez M.D. - 12/24/2023 CHERYL DAWKINS OB Exam, 12/24/2023 EXAM INFORMATION Patient Name: CHERYL DAWKINS : 1985 Age: 38 yrs Sex: Female Ref Phys: ARIEL Elizabeth NEPTALI Exam Date: 12/24/2023 Procedure: US OB FOLLOW UP GROWTH AND TRANSVAGINAL Exam Site: [facility] OB #3 Plurality: 1 OBHx: [G:(3)] F [...] Torri Franz R.D.M.S. on 12/24/2023 12:04:23 PM. Brass Roller: Torri Franz R.D.MKelleySKelley Thank You For This Referral us Ariel Gunderson M.D. IMG OB US PROCEDURES Final Resu lt * HCV Ab Scrn w/Reflex to HCV PCR, Serum (09/04/2022) EXT HCV Ab, S Negative Negative, None detected [facility] Blood (Blood, Venous) 09/04/2022 us Ordering Provider External [facility] MICR OBIOLOGY - BLOOD ORDERABLES Edited Result - Final [facility] [address] [place] [address] from Last 3 Months or Most Recently Relevant to Health Maintenance Insurance [employer] Advance Directives For more information, please contact: [phone] * Full Code (Latest Code Status on File) Date Activated Date Inactivated Comments 06/16/2023 10:32 AM 06/16/2023 12:59 PM Question Answer Comments Full Code: Discussed * Full Code Date Activated Date Inactivated Comments 06/16/2023 8:09 AM 06/16/2023 10:32 AM Question Answer Comments Full Code: Discussed Care Teams Director Of Sales Marketing Relationship Specialty Start Date End Date None Reported, Pcp PCP - General Family Medicine 06/16/23
--- OUTSIDE RECORDS SUMMARY | 2024-03-15 15:39 | XMS_ITS | Clinical Summary ---
Author Organization [facility] Address [place], [place] [address] Care Team Providers Care Fire Extinguisher Repairer Name Role Phone [facility], [facility] Unavailable Mervat Anthony DO Primary Care Provider [phone] Allergies No known active allergies Medications No [...] Positive HBSAG Negative HEPCABY Non Reactive Comment [id number] Non Reactive No Known Allergies OB History [...] 03/31/2021 Overview (03/31/2021): See 06/2020 telephone call Encounters Date Type Department Care Team Description 03/02/2024 Lab Requisition [facility] [phone] Janie Ceballos MD from Last 3 Months Immunizations Name Administration Dates Next Due COVID-19 [...] exists Pap test for age 21-65 03/19/2026 1, 03/19/2021, 01/14/2018 Tetanus booster 03/22/2029 03/22/2019 Tdap Completed 03/22/2019 HIV for age 15-65 Completed 09/04/2022, 06/05/2022 Hepatitis C screening for age 18-79 Completed 09/04/2022, 06/05/2022 Pneumococcal series for age 6-64 Aged Out No longer eligible based on patient's age to complete this topic Procedures Procedure Name Priority Date/Time Associated Diagnosis Comments LAB TRACKING EVENT Routine 03/01/2024 7: 06 PM CDT PATH TISSUE EXAM PLACENTA Routine 03/01/2024 7:06 PM CDT LC HIV-1/O/2, 4TH GENERATION Routine 09/04/2022 11:25 [...] Recently Relevant to Health Maintenance Results * LAB TRACKING EVENT (03/01/2024 7:06 PM CDT) Other (Other) Client Collect / Unknown 03/01/2024 7:06 PM CDT 03/02/2024 10:14 PM CDT Janie Ceballos MD LAB BILL ONLY [facility] [address] [place] [address], * PATH TISSUE EXAM PLACENTA (03/01/2024 7:06 PM CDT) Case Report Pathology Report ?Case: [id number] ? Authorizing Provider: ??Janie Ceballos MD ?Collected: ? 03/01/2024 1906 ? Ordering Location: ? [facility] ?Received: ?03/03/2024 0756 ? Pathologist: ? Alma Carvalho MD ? Specimen: ?Placenta ? 03/06/2024 11:28 AM [facility] Final Diagnosis A) PLACENTA, DELIVERY: 1. Third trimester crawford placenta with the following characteristics: ? a. Weight: 365 grams (<10th percentile for gestational age) ? b. Membranes/ surface: ?Circummarginate placentation, involving 30% of the insertion ?Mild acute chorioamnionitis (grade 1, stage 1) ? c. Umbilical cord: ?Three vessel cord ?Negative for funisitis ? d. Disc/Villi: ?Chorionic villi consistent with gestational age ?Negative for villitis ?Placental disc without infarcts ? e. Decidua/basal plate: ?No diagnostic abnormalities identified 03/06/2024 11:28 AM [facility] Comment Acute subchorionitis/cho rioamnionitis is a maternal inflammatory response, usually to an ascending bacterial infection. Prediction of histologic chorioamnionitis based on clinical criteria is poor. Acute subchorionitis/cho rioamnionitis can either be the cause or the result of premature rupture of membranes. Only a small proportion of infants whose placentas show acute subchorionitis/cho rioamnionitis develop sepsis. In this case, an associated inflammatory response (funisitis) is NOT present. Circummarginate placental membrane insertion describes the phenomenon when placental membranes do not arise from the edge of the placental disc. The pathogenesis of this finding is incompletely understood; however, they are favored to arise from a marginal hemorrhage early in gestation. The most common clinical complications associated with this placental finding are bleeding and premature delivery. Placental features that have been associated with diabetes mellitus include an enlarged placenta, villous immaturity and increased villous vessel density (chorangiosis). In this case, these features are not seen. 03/06/2024 11:28 AM [facility] LABORATORY-C ENTRAL LABORATORY Clinical Information Indications for Placental Examination by Pathology / indications: None indicated Maternal indications: ??Maternal diabetes, maternal fever, maternal infection during -chorio Placental indications: Abnormal cord Infectious specimen (e.g. maternal HIV or HCV): No Clinical information: Date of delivery: 03/01/2024 Time of delivery: 19: 06 Type of delivery: Live born:Yes Gestational age: 39 weeks weight of (s): 3200 grams Sex of (s): ??Male Pertinent Maternal History: Maternal parity: Diabetes: Yes Hypertension: No Eclampsia: No Smoking: No 03/06/2024 11:28 AM [facility] LABORATORY-C ENTRAL LABORATORY Gross Description A) Received fresh labeled with the patient's name and placenta, is a 365 gram, 21 x 16.5 x 2.5 cm crawford placenta. The surface is blue-antonio with normal vasculature. The 39.5 cm long, 1.3 cm diameter trivascular umbilical cord is eccentrically inserted 4 cm from the nearest edge of the placental plate. ??The vessels appear patent on cut section and are focally slightly dilated with loose hemorrhagic material. ??There foci of hemorrhage surrounding the vessels and no discrete thrombi are seen. ??The extraplacental membranes are largely detached and absent. ??The focally intact membranes are yen-pink shiny thin and translucent with widespread stripping of the amnion. ??There is 30% circummarginate insertion and 70% marginal insertion. ??The closest point of disruption extends to the margin. ??The focally intact membranes appear slimy and edematous with white-yen thin opacities. The maternal surface is complete with focally fused cotyledons. ??There are scattered superficial white-yen apparent calcifications. ??Sectioning reveals maroon-red spongy chorionic villi. ??No discrete lesion or mass is identified grossly. Bonsai Culturist sections are submitted: 1. ?? membranes and insertion 2. ??Umbilical cord 3-5. ??Placental disc full-thickness sections with apparent calcifications Time and date in formalin: 12: 26 on 03/03/2024 DOUG 03/03/2024 03/06/2024 11:28 AM [facility] ENTRAL LABORATORY Microscopic Description The final diagnosis is based on microscopic examination of appropriate sections of all specimens. Johnson to diagnostic category: Maternal inflammatory response - grade (severity) Grade 1 - mild to moderate - anything less than severe Grade 2 - severe - confluent or >3 foci >200 cells Maternal inflammatory response - stage (location) Stage 1 - early - neutrophils in subchorionic fibrin, chorionic epithelial layer of membranes Stage 2 - intermediate - neutrophils within chorionic or amnionic mesoderm Stage 3 - advanced - stage 2 with necrosis of amnionic epithelium and/or karyorrhexis of neutrophils inflammatory response - grade (severity) Grade 1 - mild to moderate - anything less than severe as described below Grade 2 - severe - confluent inflammatory cells with attenuation/degene ration of smooth muscle inflammatory response - stage (location) Stage 1 - early - inflammatory cells within chorionic plate vessel gomez and/or umbilical vein vessel wall Stage 2 - intermediate - inflammatory cells within umbilical arteries +/- vein Stage 3 - advanced - necrotizing funisitis or with concentric umbilical perivasculitis Reference: Lucina Chowdhury et al. Pediatr Dev Pathol 2003;6(5):435-8 03/06/2024 11:28 AM [facility] LABORATORY-C ENTRAL LABORATORY Additional Information Interpreted at [facility] AGLOGIC [facility], Central Laboratory - [address], [place] [address] 03/06/2024 11:28 AM [facility] [employer] [facility]-C ENTRAL LABORATORY Tissue SPECIMEN FROM PLACENTA / Unknown 03/01/2024 7:06 PM CDT 03/03/2024 7:56 AM CDT Janie Ceballos MD PATHOLOGY/CYTOLOGY [facility] LAB[facility]ATORY-CENTRAL LABORATORY [address] [place] [address], * HCV ANTIBODY RFX TO QUANT PCR (09/04/2022 11:25 AM CDT) HCV Ab Non Reactive Non Reactive 09/08/2022 5:12 AM CDT [facility] ([facility]) Blood BLOOD SPECIMEN / Unknown Venipuncture / Unknown 09/04/2022 11:25 AM CDT 09/04/2022 11:27 AM CDT Narrative [facility] ([facility]) - 09/08/2022 5:12 AM CDT Performed at: ??[address] [place] [address] ??[id number] Principal Quality Engineer: David Dumont MD, Phone: ??[phone] Karol Arellano MD LABORATORY [facility] ([facility]) [address] [place] [address], * HIV-1/O/2, 4TH GENERATION (09/04/2022 11:25 AM CDT) Pathologist [facility] HIV Scr 4th Gen Non Reactive Non Reactive 09/08/2022 6:09 AM CDT [facility] ([facility]) Comment: HIV Negative HIV-1/HIV-2 antibodies and HIV-1 p24 antigen were NOT detected. There is no laboratory evidence of HIV infection. Blood BLOOD SPECIMEN / Unknown Venipuncture / Unknown 09/04/2022 11:25 AM CDT 09/04/2022 11:27 AM CDT Narrative [facility] ([facility]) - 09/08/2022 6:09 AM CDT Performed at: ??01 - [facility] [address] [place], [place] ??[id number] Principal Quality Engineer: David Dumont MD, Phone: ??[phone] Karol Arellano MD LABORATORY [facility] ([facility]) [address] [place] [address], * HPV HIGH RISK (03/19/2021 4:20 PM CDT) TYPE 16 Negative Negative 03/25/2021 6:14 AM PROCESSING INSPECTOR [facility] LABORATORY-[facility] TRAL LABORATORY TYPE 18 Negative Negative 03/25/2021 6:14 AM PROCESSING INSPECTOR [facility] TRAL LABORATORY OTHER HIGH RISK TYPES Negative Negative 03/25/2021 6:14 AM PROCESSING INSPECTOR [facility] TRAL LABORATORY Other (Cervical) Non-Blood / Unknown 03/19/2021 4:20 PM CDT 03/21/2021 11:42 AM CDT Narrative [facility] LABORATORY-CENTRAL LABORATORY - 03/25/2021 6:14 AM PROCESSING INSPECTOR HPV types 16, 18, 31, 33, 35, 39, 45, 51, 52, 56, 58, 59, 66 and 68 DNA were undetectable or below the pre-set threshold. Methodology: Shahrzad Soila 4800 HPV Test Tawanna Bates MD MICROBIOLOGY [facility] LAB[facility]AT[facility]-CENTRAL LABORATORY [address] [place] [address], [place] from Last 3 Months or Most Recently Relevant to Health Maintenance Care Teams Fire Extinguisher Repairer Relationship Specialty Start Date End [place] [address] [address] [address] PCP - General Family Practice 02/24/23 Clinic, [facility] [address] [place] [address] 09/16/22
--- OUTSIDE RECORDS SUMMARY | 2024-03-15 15:39 | XMS_ITS | Encounter Summary ---
Author Organization [facility] Address [address] [place] [address] Care Team Providers Care Tread Tuber Machine Operator Name Role Phone None Reported, Pcp Primary Care Provider Unavail able Reason for Visit * Outpatient (Routine) - Closed Specialty Diagnoses / Procedures Referred By Babs de la vega Referred To Contact Obstetrics and Gynecology Ariel Jackman M.D. [address] [place] [address] Phone: tel: fax: [facility] Referral ID Status Reason Start Date Expiration Date Visits Re quested Visits Authorized [id number] Closed 10/15/2023 04/15/2025 1 1 Encounter Details Date Type Department Care Team (Latest Contact Info) Description 12/24/2023 1:00 PM CDT Routine Department of Obstetrics and Gynecology in [place], [place] [address] [place] [phone] Tiarra Panda M.D., Ph.D. [address] [place] [address] Abnormal Ultrasound Placental Low Lying [...] your living situation today? 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 - 12/24/2023 1:00 PM CDT MATERNAL MEDICINE SUBJECTIVE Justin Dawkins is a 38 y.o. at 29w2d who returns to [facility] for ultrasound to evaluate placental location. Estimated Date of Delivery: 03/08/24. Justin Dawkins receives her care in [place]. She underwent IVF here at [facility]; therefore, had her anatomy survey completed [...] all of her care and delivery in [place]. Plan/Recommendations: Surveillance: A repeat ultrasound is recommended in 4-6 weeks for re-evaluation of the placental edge. Growth ultrasounds per routine for GDM-A2 testing is already planned in [place] Care: Should be able to receive all care in [place]. Return to [facility] as needed. Patient was seen with [...] documented as of this encounter Care Teams Tread Tuber Machine Operator Relationship Specialty Start Date End Date None Reported, Pcp PCP - General Family Medicine 06/16/23 documented as of this encounter
--- OUTSIDE RECORDS SUMMARY | 2024-03-15 15:39 | XMS_ITS | Encounter Summary ---
Author Organization [facility] Address [address] [place] [address] Care Team Providers Care Board Runner Name Role Phone None Reported, Pcp Primary Care Provider Unavail able Encounter Details Date Type Department Care Team (Latest Contact Info) Description 12/24/2023 10:59 AM CDT - 12/24/2023 11:59 PM CDT Hospital Encounter Department of Obstetrics and Gynecology in [place], [place] [address] [place] [address] Ariel Gunderson M.D. [address] [place] [address] Encounter For Supervision Of Normal Unspecified Trimester [...] your living situation today? 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 09/20/2023 cholecalciferol, vitamin D3, (VITAMIN D3 ORAL) Take by mouth. vit calc,iron,folic (PRENAT.VITS,DONNIE, IQR-[id number] ORAL) Take 1 tablet by mouth. 09/18/2022 [...] Torri Franz REsther.M.S. on 12/24/2023 12:04:23 PM. Software Analyst: ??Torri Franz R.D.M.S. Thank You For This [...] Torri Franz R.D.M.S. on 12/24/2023 12:04:23 PM. Software Analyst: Torri Franz R.D.M.S. Thank You For This Referral us Ariel Gunderson M.D. IMG OB US PROCEDURES Final Resu lt documented in this encounter Visit Diagnoses Diagnosis Encounter For Supervision Of Normal Unspecified Trimester (HCC) documented in this encounter Additional Health Concerns Assessment Noted Time PHQ-9 Depression Total Score: 4 02/18/20 23 4:19 PM CDT documented as of this encounter Care Teams Board Runner Relationship Specialty Start Date End Date None Reported, Pcp PCP - General Family Medicine 06/16/23 documented as of this encounter
--- OUTSIDE RECORDS SUMMARY | 2024-03-15 15:39 | XMS_ITS ---
Author Organization [facility] Address [address] [place] [address] Care Team Providers Care Biofuels Plant Manager Name Role Phone Unavailable Unavailable Unavailable Surgery Details Not on file Complications Check Surgery Details section. Procedure Estimated Blood Loss Check Surgery Details section. Procedure Findings Check Surgery Details section. Procedure Specimens Taken Check Surgery Details section.
--- NOTE | 2024-03-15 16:12 | P.LACCB_ITS ---
Consult Note - Mom Date of Visit Date of visit: 03/15/24 Reason for consultation: Assistance Needed, Low Milk Supply and Infant Weight Concern Visit Code: Visit Patient's Information Phone number: [phone] : 3 Para: 1 Allergies No Known Drug Allergies Allergy (Verified 02/25/24 08:48) Mother's medical history: Difficulty conceiving Mother's Medical History: Medical History (Updated 03/12/24 @ 00:01 by Background Daemon) Marginal placenta previa ?O44.20 - Partial placenta previa NOS or without hemorrhage, unspecified trimester (ICD-10) Gestational diabetes ?O24.419 - Gestational diabetes mellitus in , unspecified control (ICD-10) Advanced maternal age (AMA) in resulting from in-vitro fertilization ?O09.819 - Supervision of resulting from assisted reproductive technology, unspecified trimester (ICD-10) 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 ?N96 - Recurrent loss (ICD-10) Missed ab ?O02.1 - Missed (ICD-10) Infertility History of BCG vaccination ?Z92.29 - Personal history of other drug therapy (ICD-10) Latent tuberculosis ?Z22.7 - Latent tuberculosis (ICD-10) Work Plans: return to work at 4 months Delivery Information Delivery type: Primary C/S; Labored Gestational Age: 38w 6d Gestational Weight For Age: AGA Weight: 3.2 kg Discharge Weight: 3.078 kg Percentage weight loss: 3.8 Baby's Information Baby's Age at Visit: 14 days Baby's Provider or Clinic: [facility] Jaundice: No Past Experience Past Experience: No Current Frequency of Day Feedings: every 2 hours, wakes independently for feedings Frequency of Night Feedings: every 3 hours Both Breasts: Yes Suck: strong Latch: ok; still pinchy/bitey on right side Length of Time: 15-20 min Goals: 1 year Pumping Pumping: Yes Supplementing EBM Supplement: Yes (40-70ml after ea ) Formula Supplement: No (noen for 3 days now that mom's milk is increasing) Baby Elimination Number of Wet Diapers a Day: ea feeding Number of BM a Day: 2-3 minimum Breast/Nipple Condition Breast Information: Breasts are symmetrical with rounded lower quadrants, intramammary distance is less than 1.5 inches. No erythema. Nipples are supple, everted prior to feeding. Breast Shape: Round Engorgement: No Maternal Nipple Condition - Left: Common Nipple Maternal Nipple Condition - Right: Common Nipple Sore Nipples: Yes (right while nursing) Baby Assessment Skin: Normal Tongue/frenulum: Normal/elastic Palate: Average Lips: Relaxed and Symmetrical Jaw Alignment: Symmetrical Mucosa: [employer], moist Onsite Observation Pre-Feed weight: 3.42 kg (average 33gm wt gain/day since last weight 9 days ago) Post-Feed weight: 3.476 kg Milk Transferred (mL): 56 Position: Cross cradle Attachment/latch-on achieved: Easily Suck pattern: Suck burst and normal rest Swallow: Audible, consistent and Gulping Behavior following feed: Alert, content and Alert, fussy (fussy at first until dressed, burped and settles in dad's arms. Discussed this is not the same as being hungry; may just need time to settle after a feeding) Pre-Nursing Left Nipple: Within Normal Limits Pre-Nursing Right Nipple: Within Normal Limits Post-Nursing Left Nipple: Within Normal Limits Post-Nursing Right Nipple: Within Normal Limits Assessments/Interventions Assessments/Interventions: Mom currently triple feeding: feeding baby 15-20 min ea side, then pumping 15-20 min, then supplementing with bottle. Mom reports he takes the bottle pretty eagerly. observation: Mom latched baby easily to her left breast; alonso initially had a shallow latch. Mom relatched him bringing her nipple and his mouth more aligned and he opened wider and she was able to get a deeper latch. She did tug the chin/bottom lip gently down as well. Audible swallows heard. After about 10 min and slowed swallowing, showed mom how to do breast compression to see if he would resume swallowing which he did. Infant weighed: transferred 30 ml Mom then latched alonso to her right breast with the same technique; took about 1 minute for active suckling to ensue, but then she felt stronger pulls and noticed swallowing. She reported much more comfortable and I've never seen him swallow like this at the breast before. He came off the breast at about 7 minutes, I weighed him, he had transferred 12 ml. Mom relatched him to the right breast, started breast compression and he nursed for another 7 minutes with active nursing and swallows. again weighed: transferred another 14 ml. Total weight gain for feeding 56gm Discussed these maneuvers will help him get more milk at the breast, keep him at the breast longer, and minimize her need for pumping and supplementing. Education provided: Asymmetric latch technique for wide/deep latch to increase milk, Transfer for baby and increase comfort for mom, Supply/demand nature of milk supply, Pumping for milk management and Milk collection, storage Feeding Plan: Continue feeding following his cues every 2-3 hours Emphasized the need for a wide, deep latch with flanged lips for maximum milk removal Breast compression to help with milk transfer. Recommend backing off on pumping and bottling unless he is giving cues he is hungry. Discussed pumping every other feeding for the next 24 hours so she has milk if he needs it, then may 2-3 times a day on Wed, then no pumping over the weekend unless she wants to. Discussed always important to follow his cues to be sure he's getting what he needs. Follow up weight in 5 days given change in feeding plan recommended. Time Spent Time spent with patient (min): 90 (reviewing EMR and face to face with patient, and baby) Meds Home Medications and Allergies Allergies Allergy/AdvReac Type Severity Reaction Status Date / Time No Known Drug Allergies Allergy Verified 02/25/24 08:48
== END 2024-03-15 15:37 | disposition home or self-care (01) ==
LOC: OB LAC 15:37
PROVIDERS: PCP Family Medicine; Visit Provider Obstetrics & Gynecology
DX: Z39.1 Encounter for care and examination of lactating mother (principal)
CPT/HCPCS: G0463

== ENCOUNTER 2024-03-20 13:30 | Outpatient (CLI) | payer OTHER, SELFPAY ==
--- OUTSIDE RECORDS SUMMARY | 2024-03-20 13:33 | XMS_ITS | Clinical Summary ---
Author Organization [employer] [facility] Address [place], [place] [address] Care Team Providers Care Sustainability Officer Name Role Phone [facility], [facility] Unavailable Mervat Anthony DO Primary Care Provider [phone] Allergies No known active allergies Medications No [...] Positive HBSAG Negative HEPCABY Non Reactive Comment [id number] Non Reactive No Known Allergies OB History [...] Department Care Team Description 03/02/2024 Lab Requisition [facility] [phone] Janie Ceballos MD from Last 3 Months [...] CDT Janie Ceballos MD LAB BILL ONLY [facility] [address] [place] [address], * PATH TISSUE EXAM PLACENTA (03/01/2024 7:06 PM CDT) Case Report Pathology Report ?Case: [id number] ? Authorizing Provider: ??Janie Ceballos MD ?Collected: ? 03/01/2024 1906 ? Ordering Location: ? [facility] ?Received: ?03/03/2024 0756 ? Pathologist: ? Alma Carvalho MD ? Specimen: ?Placenta ? 03/06/2024 11:28 AM [facility] Final Diagnosis A) PLACENTA, [...] ?No diagnostic abnormalities identified 03/06/2024 11:28 AM [facility] Comment Acute subchorionitis/cho rioamnionitis [...] are not seen. 03/06/2024 11:28 AM T [facility] LABORATORY-C ENTRAL LABORATORY Clinical Information Indications for [...] Eclampsia: No Smoking: No 03/06/2024 11:28 AM [facility] LABORATORY-C ENTRAL LABORATORY Gross Description A) Received [...] discrete lesion or mass is identified grossly. Complaints Coordinator sections are submitted: 1. ?? membranes and insertion 2. ??Umbilical cord 3-5. ??Placental disc full-thickness sections with apparent calcifications Time and date in formalin: 12: 26 on 03/03/2024 DOUG 03/03/2024 03/06/2024 11:28 AM [facility] Microscopic Description The final [...] Dev Pathol 2003;6(5):435-8 03/06/2024 11:28 AM T [facility] LABORATORY-C ENTRAL LABORATORY Additional Information Interpreted at [facility] Central Laboratory - [address], [place] [address] 03/06/2024 11:28 AM [facility] [employer] [facility] ENTRAL LABORAT[facility] Tissue SPECIMEN FROM PLACENTA / Unknown 03/01/2024 7:06 PM CDT 03/03/2024 7:56 AM CDT Janie Ceballos MD PATHOLOGY/CYTOLOGY [facility] [address] [place] [address], * HCV ANTIBODY RFX TO QUANT PCR (09/04/2022 11:25 AM CDT) HCV Ab Non Reactive Non Reactive 09/08/2022 5:12 AM CDT [facility] (CET) Blood BLOOD SPECIMEN / Unknown Venipuncture / Unknown 09/04/2022 11:25 AM CDT 09/04/2022 11:27 AM CDT Narrative [facility] (CET) - 09/08/2022 5:12 AM CDT Performed at: ??[address] [place] [address] ??[id number] Configuration Management Advisor: David Dumont MD, Phone: ??[phone] Karol Arellano MD LABORATORY [facility] ([facility]) [address] [place] [address], * HIV-1/O/2, 4TH GENERATION (09/04/2022 11:25 AM CDT) Pathologist [facility] HIV Scr 4th Gen Non Reactive Non Reactive 09/08/2022 6:09 AM CDT [facility] (CET) Comment: HIV Negative HIV-1/HIV-2 antibodies and HIV-1 p24 antigen were NOT detected. There is no laboratory evidence of HIV infection. Blood BLOOD SPECIMEN / Unknown Venipuncture / Unknown 09/04/2022 11:25 AM CDT 09/04/2022 11:27 AM CDT Narrative [facility] (CET) - 09/08/2022 6:09 AM CDT Performed at: ??01 - [facility] [address] [place], [place] ??[id number] Configuration Management Advisor: David Dumont MD, Phone: ??[phone] Karol Arellano MD LABORATORY [facility] ([facility]) [address] [place] [address], * HPV HIGH RISK (03/19/2021 4:20 PM CDT) TYPE 16 Negative Negative 03/25/2021 6:14 AM [facility] TRAL LABORATORY TYPE 18 Negative Negative 03/25/2021 6:14 AM [facility] TR[facility] OTHER HIGH RISK TYPES Negative Negative 03/25/2021 6:14 AM [facility] Other (Cervical) Non-Blood / Unknown 03/19/2021 4:20 PM CDT 03/21/2021 11:42 AM CDT Narrative [facility] LAB[facility] - 03/25/2021 6:14 AM [facility] HPV types 16, 18, 31, 33, 35, 39, 45, 51, 52, 56, 58, 59, 66 and 68 DNA were undetectable or below the pre-set threshold. Methodology: Shahrzad Soila 4800 HPV Test Tawanna Bates MD MICROBIOLOGY [facility] LABORATORY [address] [place] [address], [place] from Last 3 Months or Most Recently Relevant to Health Maintenance Care Teams Sustainability Officer Relationship Specialty Start Date End [place] [address] [address] [place] [address] PCP - General Family Practice 02/24/23 Clinic, [facility] [address] [place] [address] 09/16/22
--- OUTSIDE RECORDS SUMMARY | 2024-03-20 13:33 | XMS_ITS | Encounter Summary ---
Author Organization [facility] Address [address] [place] [address] Care Team Providers Care Integrity Engineer Name Role Phone None Reported, Pcp Primary Care Provider Unavail able Encounter Details Date Type Department Care Team (Latest Contact Info) Description 12/24/2023 10:59 AM CDT - 12/24/2023 11:59 PM CDT Hospital Encounter Department of Obstetrics and Gynecology in [place], [place] [address] [place] [address] Ariel Gunderson M.D. [address] [place] [address] Encounter For Supervision Of Normal Unspecified Trimester [...] your living situation today? 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 09/20/2023 cholecalciferol, vitamin D3, (VITAMIN D3 ORAL) Take by mouth. vit calc,iron,folic (PRENAT.VITS,DONNIE, [id number] ORAL) Take 1 tablet by mouth. 09/18/2022 [...] FOLLOW UP GROWTH AND TRANSVAGINAL Exam Site: [facility] OB #3 Plurality: 1 OBHx: [...] Torri Franz REsther.M.S. on 12/24/2023 12:04:23 PM. Office Nurse Practitioner: ??Torri Franz R.D.M.S. Thank You For This Referral Procedure Note Sherry Ramirez M.D. - 12/24/2023 CHERYL DAWKINS OB Exam, 12/24/2023 EXAM INFORMATION Patient Name: CHERYL DAWKINS : 1985 Age: 38 yrs Sex: Female Ref Phys: ARIEL GUNDERSON Exam Date: 12/24/2023 Procedure: OB FOLLOW UP GROWTH AND TRANSVAGINAL Exam Site: [facility] OB #3 Plurality: 1 OBHx: [...] Torri Franz R.D.M.S. on 12/24/2023 12:04:23 PM. Office Nurse Practitioner: Torri Franz R.D.M.S. Thank You For This Referral us Ariel Gunderson M.D. IMG OB US PROCEDURES Final Resu lt documented in this encounter Visit Diagnoses Diagnosis Encounter For Supervision Of Normal Unspecified Trimester (HCC) documented in this encounter Additional Health Concerns Assessment Noted Time PHQ-9 Depression Total Score: 4 02/18/20 23 4:19 PM CDT documented as of this encounter Care Teams Integrity Engineer Relationship Specialty Start Date End Date None Reported, Pcp PCP - General Family Medicine 06/16/23 documented as of this encounter
--- OUTSIDE RECORDS SUMMARY | 2024-03-20 13:33 | XMS_ITS | Encounter Summary ---
Author Organization [facility] Address [address] [place] [address] Care Team Providers Care Firer Bisque Kiln Name Role Phone None Reported, Pcp Primary Care Provider Unavail able Reason for Visit * Outpatient (Routine) - Closed Specialty Diagnoses / Procedures Referred By Babs de la vega Referred To Contact Obstetrics and Gynecology Ariel Jackman M.D. [address] [place] [address] Phone: tel: fax: [facility] Referral ID Status Reason Start Date Expiration Date Visits Re quested Visits Authorized [id number] Closed 10/15/2023 04/15/2025 1 1 Encounter Details Date Type Department Care Team (Latest Contact Info) Description 12/24/2023 1:00 PM CDT Routine Department of Obstetrics and Gynecology in [place], [place] [address] [place] [phone] Tiarra Panda M.D., Ph.D. [address] [place] [address] Abnormal Ultrasound Placental Low Lying [...] your living situation today? 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 - 12/24/2023 1:00 PM CDT MATERNAL MEDICINE SUBJECTIVE Justin Dawkins is a 38 y.o. at 29w2d who returns to [facility] for ultrasound to evaluate placental location. Estimated Date of Delivery: 03/08/24. Justin Dawkins receives her care in [place]. She underwent IVF here at [facility]; therefore, had her anatomy survey completed [...] all of her care and delivery in [place]. Plan/Recommendations: Surveillance: A repeat ultrasound is recommended in 4-6 weeks for re-evaluation of the placental edge. Growth ultrasounds per routine for GDM-A2 testing is already planned in [place] Care: Should be able to receive all care in [place]. Return to [facility] as needed. Patient was seen with Zo [...] documented as of this encounter Care Teams Firer Bisque Kiln Relationship Specialty Start Date End Date None Reported, Pcp PCP - General Family Medicine 06/16/23 documented as of this encounter
--- OUTSIDE RECORDS SUMMARY | 2024-03-20 13:33 | XMS_ITS ---
Author Organization [facility] Address [address] [place] [address] Care Team Providers Care Vice President Corporate Communications Name Role Phone Unavailable Unavailable Unavailable Surgery Details Not on file Complications Check Surgery Details section. Procedure Estimated Blood Loss Check Surgery Details section. Procedure Findings Check Surgery Details section. Procedure Specimens Taken Check Surgery Details section.
--- OUTSIDE RECORDS SUMMARY | 2024-03-20 13:33 | XMS_ITS | Referral Summary ---
Author Organization [facility] Address [address] [place] [address] Care Team Providers Care Wallpaperer Name Role Phone None Reported, Pcp Primary Care Provider Unavail able Source Comments Patient records contain information from all sites at [facility]. For routine questions regarding patient records, call [phone] during business hours, M-F 8:00 AM - 5:00 PM Central Time. Record requests for emergency care only can be directed to [phone] at any time.[facility] Encounters Date Type Department Care Team Description 12/24/2023 1:00 PM CDT Routine Department of Obstetrics and Gynecology in [place], [place] [address] [place] [address] Tiarra Panda M.D., Ph.D. Abnormal Ultrasound Placental Low Lying (Primary Dx); Diabetes Mellitus Gestational (HCC) 12/24/2023 10:59 AM CDT - 12/24/2023 11:59 PM CDT Hospital Encounter Department of Obstetrics and Gynecology in [place], [place] [address] [place] [address] Ariel Gunderson M.D. Encounter For Supervision Of Normal Unspecified Trimester (HCC) Discharge Disposition: Home or Self Care from Last 3 Months Allergies Active Allergy Reactions Criticality Noted Date Comments Pollen Extracts Cough 02/19/2023 Medications vit calc,iron,folic (PRENAT.VITS,DONNIE ,[id number] ORAL) Take 1 tablet by mouth. 09/18/2022 [...] your living situation today? 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 on 12/24/2023 12:04:23 PM. Filling Machine Set Up Mechanic: ??Torri Franz R.D.M.SKelley Thank You For This [...] Torri Franz R.D.MKelleySKelley on 12/24/2023 12:04:23 PM. Filling Machine Set Up Mechanic: Torri Franz R.D.M.S. Thank You For This Referral us Ariel Gunderson M.D. IMG OB US PROCEDURES Final Resu lt * HCV Ab Scrn w/Reflex to HCV PCR, Serum (09/04/2022) EXT HCV Ab, S Negative Negative, None detected EXTERNAL INTERFACED LAB Blood (Blood, Venous) 09/04/2022 us Ordering Provider External [facility] MICR OBIOLOGY - BLOOD ORDERABLES Edited Result - Final EXTERNAL INTERFACED LAB [address] [place] [address] from Last 3 Months or Most Recently Relevant to Health Maintenance Insurance [facility] Advance Directives For more information, please contact: [phone] * Full Code (Latest Code Status on File) Date Activated Date Inactivated Comments 06/16/2023 10:32 AM 06/16/2023 12:59 PM Question Answer Comments Full Code: Discussed * Full Code Date Activated Date Inactivated Comments 06/16/2023 8:09 AM 06/16/2023 10:32 AM Question Answer Comments Full Code: Discussed Care Teams Wallpaperer Relationship Specialty Start Date End Date None Reported, Pcp PCP - General Family Medicine 06/16/23
--- OUTSIDE RECORDS SUMMARY | 2024-03-20 13:33 | XMS_ITS | Clinical Summary ---
Author Organization [facility] Address [address] [place] [address] Care Team Providers Care Glass Mold Repairer Name Role Phone None Reported, Pcp Primary Care Provider Unavail able Source Comments Patient records contain information from all sites at [facility]. For routine questions regarding patient records, call [phone] during business hours, M-F 8:00 AM - 5:00 PM Central Time. Record requests for emergency care only can be directed to [phone] at any time.[facility] Allergies Active Allergy Reactions Criticality Noted Date Comments Pollen Extracts Cough 02/19/2023 Medications vit calc,iron,folic (PRENAT.VITS,DONNIE ,[id number] ORAL) Take 1 tablet by mouth. 09/18/2022 [...] Routine Department of Obstetrics and Gynecology in [place], [place] [address] [place] [address] Tiarra Panda M.D., Ph.D. Abnormal Ultrasound Placental Low Lying (Primary Dx); Diabetes Mellitus Gestational (HCC) 12/24/2023 10:59 AM CDT - 12/24/2023 11:59 PM CDT Hospital Encounter Department of Obstetrics and Gynecology in [place], [place] [address] [place] [address] Ariel Gunderson M.D. Encounter For Supervision Of [...] your living situation today? 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 file Last Filed Vital Signs Vital Sign Reading Time Taken Comments Blood Pressure 85/56 12/24/2023 12:09 PM CDT Pulse 73 12/24/2023 12:09 PM CDT Temperature 36.6 ??C (97.9 ??F) 06/16/2023 8:56 AM CS T Respiratory Rate 15 06/16/2023 10:2 2 AM DIRECTOR CAREER SERVICES Oxygen Saturation 97% 12/24/2023 12: 09 PM CDT Inhaled Oxygen Concentration - - Weight 67.1 kg (147 lb 14.9 oz) 024 12:09 PM CDT Height 150 cm (4' 11.06) 07/08/2023 2:27 PM DIRECTOR CAREER SERVICES Body Mass Index 29.82 07/08/2023 2:27 PM DIRECTOR CAREER SERVICES Plan of Treatment Health Maintenance Due Date [...] FOLLOW UP GROWTH AND TRANSVAGINAL Exam Site: [facility] OB #3 Plurality: 1 OBHx: [G:(3)] [...] Torri Franz R.D.M.SKelley on 12/24/2023 12:04:23 PM. Chief Wellness Officer: ??Torri Franz R.D.M.S. Thank You For This Referral Procedure Note Sherry Ramirez M.D. - 12/24/2023 CHERYL DAWKINS OB Exam, 12/24/2023 EXAM INFORMATION Patient Name: CHERYL DAWKINS : 1985 Age: 38 yrs Sex: Female Ref Phys: ARIEL Elizabeth NEPTALI Exam Date: 12/24/2023 Procedure: US OB FOLLOW UP GROWTH AND TRANSVAGINAL Exam Site: [facility] OB #3 Plurality: 1 OBHx: [G:(3)] [...] Torri Franz R.D.M.S. on 12/24/2023 12:04:23 PM. Chief Wellness Officer: Torri Franz R.D.MKelleySKelley Thank You For This [...] Final EXTERNAL INTERFACED LAB [address] [place] [address] from Last 3 Months or Most Recently Relevant to Health Maintenance Insurance [employer] Advance Directives For more information, please contact: [phone] * Full Code (Latest Code Status on File) Date Activated Date Inactivated Comments 06/16/2023 10:32 AM 06/16/2023 12:59 PM Question Answer Comments Full Code: Discussed * Full Code Date Activated Date Inactivated Comments 06/16/2023 8:09 AM 06/16/2023 10:32 AM Question Answer Comments Full Code: Discussed Care Teams Glass Mold Repairer Relationship Specialty Start Date End Date None Reported, Pcp PCP - General Family Medicine 06/16/23
--- NOTE | 2024-03-20 13:49 | W.PM.LAC.MF ---
Follow-Up Note: Mom Date of visit Date of visit: 03/20/24 Reason for consultation: Low Milk Supply and Other (milk transfer question) Visit Code: Visit Patient's Information Allergies No Known Drug Allergies Allergy (Verified 03/16/24 15:26) Delivery Information Delivery type: Primary C/S; Labored Gestational Age: 38+6 Weight: 3.2 kg Last Weight: 3.42 kg Baby's Information Baby's name: aMrio Oliver Baby's Age at Visit: 19 days Baby's Provider or Clinic: [facility] Current Frequency of Day Feedings: every 2 hours Frequency of Night Feedings: every 2-3 hours Both Breasts: Yes Suck: good, strong Latch: more challenging on the right side Length of Time: 15 min ea side Pumping Pumping: Yes Quantity Pumped: 20-30 ml Supplementing EBM Supplement: Yes Formula Supplement: Yes Baby Elimination Number of Wet Diapers a Day: ea feeding Number of BM a Day: 4-5 a day, yellow, seedy Onsite Observation Pre-feed weight: 3.57 kg (up 150gm in 5 days; average 30gm/day) Post-Feed weight: 3.636 kg Milk Transferred (mL): 66 (10m on RIGHT breast (36ml); 10m on LEFT (30ml) mom tried to put him back on left side and he declined) Pre-Nursing Left Nipple: Within Normal Limits Pre-Nursing Right Nipple: Within Normal Limits Post-Nursing Left Nipple: Within Normal Limits Post-Nursing Right Nipple: Within Normal Limits Assessments/Interventions Assessments/Interventions: Worked with mom/reviewed asymmetrical latch technique for a wide, deep latch and need to bring baby to breast fully and quickly. Mom able to repeat this and reports it feels deeper than she gets at home. Reminded of help of breast compression to get more milk to baby, especially when he is sleepy. She reports baby congested over the weekend and he didn't nurse well and she also didn't pump much. Discussed the importance of pumping in baby won't feed well to maintain supply, and to have her milk to give to baby. She is drinking Mother's Milk Tea; wanted to know if this was ok. Told her it is ok, and frequent milk removal is the most important thing to do to build and maintain milk supply. Education provided: Early feeding cues to maximize timing of latching, Asymmetric latch technique for wide/deep latch to increase milk (Discussed needing to bring baby to breast more quickly once he opens his mouth to get the deeper latch, south on her RIGHT side.), Transfer for baby and increase comfort for mom, Supply/demand nature of milk supply, Need for frequent stimulation/milk removal and Pumping for milk management (if baby not feed well, discussed needing to pump to maintain supply) Follow-Up Suggested follow up: Appointment as needed Recommend baby be seen by provider for:: [facility] as scheduled, sooner with questions/concerns Time Spent Time spent with patient (min): 70 Meds Home Medications and Allergies Home Medications ?Medication ?Instructions ?Recorded ?Confirmed ?Type hydrocortisone 1 % topical cream 1 applic topical TID PRN 03/16/24 03/16/24 History (Preparation H Hydrocortisone) Allergies Allergy/AdvReac Type Severity Reaction Status Date / Time No Known Drug Allergies Allergy Verified 03/16/24 15:26
== END 2024-03-20 13:31 | disposition home or self-care (01) ==
LOC: OB LAC 13:31
PROVIDERS: PCP Family Medicine; Visit Provider Obstetrics & Gynecology
DX: Z39.1 Encounter for care and examination of lactating mother (principal)
CPT/HCPCS: G0463

== ENCOUNTER 2024-04-07 11:13 | Outpatient (CLI) | payer OTHER, SELFPAY ==
--- OUTSIDE RECORDS SUMMARY | 2024-04-07 11:15 | XMS_ITS | Clinical Summary ---
Author Organization [employer] [facility] Address [place], [place] [address] Care Team Providers Care Press Technician Name Role Phone [facility], [facility] Unavailable Mervat Anthony DO Primary Care Provider [phone] Allergies No known active allergies Medications No [...] Positive HBSAG Negative HEPCABY Non Reactive Comment [id number] Non Reactive No Known Allergies OB History Para Term AB Living 1 0 0 0 0 0 SAB IAB Ectopic Multiple Live Births 0 0 0 0 0 # Outcome Date GA Lbr Ezio/2nd Weight Sex Delivery Anes PTL Lv 1 Current Past Medical History: . Date History of BCG vaccination No Significant Past Medical History Tuberculosis Latent Varicella In childhood Past Surgical History: . Laterality Date NO PAST SURGERIES No data on file. #1 Problems (from 09/04/22 to present) No problems associated with this episode. MAURICIO FELDER RN ....09/04/2022 11:10 AM TB lung, latent 06/04/2022 Overview (06/04/2022): See 03/2021 medical message - patient reports CXR normal. Has not had treatment Positive QuantiFERON-TB Gold test 03/31/2021 Overview (03/31/2021): See 06/2020 telephone call Encounters Date Type Department Care Team Description 03/30/2024 Orders Only [facility] Scanner 1 scan: (1-Ord) SY[facility], MULTIPLE LAB REPORTS, 03/30/2024 03/02/2024 Lab Requisition [facility] [phone] Janie Ceballos MD from Last 3 Months [...] 61 08/19/2022 11:16 AM CDT Temperature 36.8 C (98.3 F) 05/25/2017 9:31 AM COMPUTER METHODS ANALYST Respiratory Rate - - Oxygen Saturation 100% [...] Procedure Name Priority Date/Time Associated Diagnosis Comments SCAN-LABORATORY REPORT 03/30/2024 12:00 AM COMPUTER METHODS ANALYST LAB TRACKING EVENT Routine 03/01/2024 7: 06 [...] Recently Relevant to Health Maintenance Results * SCAN-LABORATORY REPORT (03/30/2024 12:00 AM COMPUTER METHODS ANALYST) Scanner OTHER * LAB TRACKING EVENT (03/01/2024 7:06 PM CDT) Other (Other) Client Collect / Unknown 03/01/2024 7:06 PM CDT 03/02/2024 10:14 PM CDT Janie Ceballos MD LAB BILL ONLY [facility] [address] [place] [address], * PATH TISSUE EXAM PLACENTA (03/01/2024 7:06 PM CDT) Case Report Pathology Report Case: [id number] Authorizing Provider: Janie Ceballos MD Collected: 03/01/2024 1906 Ordering Location: [facility] Received: 03/03/2024 0756 Pathologist: Alma Carvalho MD Specimen: Placenta 03/06/2024 11:28 AM [facility] Final Diagnosis A) PLACENTA, DELIVERY: 1. Third trimester crawford placenta with the following characteristics: a. Weight: 365 grams (<10th percentile for gestational age) b. Membranes/ surface: Circummarginate placentation, involving 30% of the insertion Mild acute chorioamnionitis (grade 1, stage 1) c. Umbilical cord: Three vessel cord Negative for funisitis d. Disc/Villi: Chorionic villi consistent with gestational age Negative for villitis Placental disc without infarcts e. Decidua/basal plate: No diagnostic abnormalities identified 03/06/2024 11:28 AM [facility] ENTRAL LABORATORY Comment Acute subchorionitis/cho rioamnionitis is [...] features are not seen. 03/06/2024 11:28 AM [facility] LABORATORY-C ENTRAL LABORATORY Clinical Information Indications for Placental Examination by Pathology / indications: None indicated Maternal indications: Maternal diabetes, maternal fever, maternal infection during -chorio Placental indications: Abnormal cord Infectious specimen (e.g. maternal HIV or HCV): No Clinical information: Date of delivery: 03/01/2024 Time of delivery: 19: 06 Type of delivery: Live born:Yes Gestational age: 39 weeks weight of infant(s): 3200 grams Sex of (s): Male Pertinent Maternal History: Maternal parity: Diabetes: Yes Hypertension: No Eclampsia: No Smoking: No 03/06/2024 11:28 AM [facility]-C ENTRAL LABORATORY Gross Description A) Received fresh labeled with the patient's name and placenta, is a 365 gram, 21 x 16.5 x 2.5 cm crawford placenta. The surface is blue-antonio with normal vasculature. The 39.5 cm long, 1.3 cm diameter trivascular umbilical cord is eccentrically inserted 4 cm from the nearest edge of the placental plate. The vessels appear patent on cut section and are focally slightly dilated with loose hemorrhagic material. There foci of hemorrhage surrounding the vessels and no discrete thrombi are seen. The extraplacental membranes are largely detached and absent. The focally intact membranes are yen-pink shiny thin and translucent with widespread stripping of the amnion. There is 30% circummarginate insertion and 70% marginal insertion. The closest point of disruption extends to the margin. The focally intact membranes appear slimy and edematous with white-yen thin opacities. The maternal surface is complete with focally fused cotyledons. There are scattered superficial white-yen apparent calcifications. Sectioning reveals maroon-red spongy chorionic villi. No discrete lesion or mass is identified grossly. Rotary Furnace Operator sections are submitted: 1. membranes and insertion 2. Umbilical cord 3-5. Placental disc full-thickness sections with apparent calcifications Time and date in formalin: 12: 26 on 03/03/2024 DOUG 03/03/2024 03/06/2024 11:28 AM [facility]-C ENTRAL LABORATORY Microscopic Description The final diagnosis [...] funisitis or with concentric umbilical perivasculitis Reference: jakob Da Silva al. Pediatr Dev Pathol 2003;6(5):435-8 03/06/2024 11:28 AM CDT [facility]AL LABORATORY Additional Information Interpreted at [facility], Central Laboratory - [address] [place] [address] [address], [place] [address] 03/06/2024 11:28 AM CDT [facility]-C ENTRAL LABORATORY Tissue SPECIMEN FROM PLACENTA / Unknown 03/01/2024 7:06 PM CDT 03/03/2024 7:56 AM CDT Janie Ceballos MD PATHOLOGY/CYTOLOGY Performing Organization Address City/[facility]/ZIP Co de Phone Number [facility] [address] [place] [address], [place] * HCV ANTIBODY RFX TO QUANT PCR (09/04/2022 11:25 AM CDT) HCV Ab Non Reactive Non Reactive 09/08/2022 5:12 AM [facility] Blood BLOOD SPECIMEN / Unknown Venipuncture / Unknown 09/04/2022 11:25 AM CDT 09/04/2022 11:27 AM CDT Narrative [facility] ([facility]ET) - 09/08/2022 5:12 AM CDT Performed at: [address] [place] [address] [place] [id number] Technician: David Dumont MD, Phone: [phone] Karol Arellano MD LABORATORY [facility] ([facility]) [address] [place] [address], * LC HIV-1/O/2, 4TH GENERATION (09/04/2022 11:25 AM CDT) HIV Scr 4th Gen Non Reactive Non Reactive 09/08/2022 6:09 AM CDT [facility] ([facility]) Comment: HIV Negative HIV-1/HIV-2 antibodies and HIV-1 p24 antigen were NOT detected. There is no laboratory evidence of HIV infection. Blood BLOOD SPECIMEN / Unknown Venipuncture / Unknown 09/04/2022 11:25 AM CDT 09/04/2022 11:27 AM CDT Narrative [facility] ([facility]) - 09/08/2022 6:09 AM CDT Performed at: [address] [place] [id number] Technician: David Dumont MD, Phone: [phone] Karol Arellano MD LABORATORY Performing Organization Address City/[facility] Co de Phone Number [facility] ([facility]) [address] [place] [address] * HPV HIGH RISK (03/19/2021 4:20 PM CDT) Pathologist [facility] TYPE 16 Negative Negative 03/25/2021 6:14 AM COMPUTER METHODS ANALYST [facility] TRAL LABORATORY TYPE 18 Negative Negative 03/25/2021 6:14 AM COMPUTER METHODS ANALYST [facility] TRAL LABORATORY OTHER HIGH RISK TYPES Negative Negative 03/25/2021 6:14 AM COMPUTER METHODS ANALYST [facility] TRAL LABORATORY Other (Cervical) Non-Blood / Unknown 03/19/2021 4:20 PM CDT 03/21/2021 11:42 AM CDT Narrative [facility] - 03/25/2021 6:14 AM COMPUTER METHODS ANALYST HPV types 16, 18, 31, 33, 35, 39, 45, 51, 52, 56, 58, 59, 66 and 68 DNA were undetectable or below the pre-set threshold. Methodology: Shahrzad Soila 4800 HPV Test Tawanna Bates MD MICROBIOLOGY [facility] [address] [place] [address], [place] from Last 3 Months or Most Recently Relevant to Health Maintenance Care Teams Press Technician Relationship Specialty Start Date End Date Mevrat Anthony DO [address] [place] [address] PCP - General Family Practice 02/24/23 Clinic, [facility] [address] [place] [address] 09/16/22
--- OUTSIDE RECORDS SUMMARY | 2024-04-07 11:16 | XMS_ITS ---
Author Organization [facility] Address [address] [place] [address] Care Team Providers Care Builder'S Labourer Name Role Phone Unavailable Unavailable Unavailable Surgery Details Not on file Complications Check Surgery Details section. Procedure Estimated Blood Loss Check Surgery Details section. Procedure Findings Check Surgery Details section. Procedure Specimens Taken Check Surgery Details section.
--- OUTSIDE RECORDS SUMMARY | 2024-04-07 11:16 | XMS_ITS | Referral Summary ---
Author Organization [facility] Address [address] [place] [address] Care Team Providers Care Engraved Roller Inspector Name Role Phone None Reported, Pcp Primary Care Provider Unavail able Source Comments Patient records contain information from all sites at [facility]. For routine questions regarding patient records, call [phone] during business hours, M-F 8:00 AM - 5:00 PM Central Time. Record requests for emergency care only can be directed to [phone] at any time.[facility] Allergies Active Allergy Reactions Criticality Noted Date Comments Pollen Extracts Cough 02/19/2023 Medications vit calc,iron,folic (PRENAT.VITS,DONNIE ,[id number] ORAL) Take 1 tablet by mouth. 09/18/2022 [...] your living situation today? 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 Not on file Last Filed Vital Signs Vital Sign Reading Time Taken Comments Blood Pressure 85/56 12/24/2023 12:09 PM CDT Pulse 73 12/24/2023 12:09 PM CDT Temperature 36.6 C (97.9 F) 06/16/2023 8:56 AM PROP WORKER Respiratory Rate 15 06/16/2023 10:2 2 AM PROP WORKER Oxygen Saturation 97% 12/24/2023 12: 09 PM CDT Inhaled Oxygen Concentration - - Weight 67.1 kg (147 lb 14.9 oz) 024 12:09 PM CDT Height 150 cm (4' 11.06) 07/08/2023 2:27 PM PROP WORKER Body Mass Index 29.82 07/08/2023 2:27 PM PROP WORKER Plan of Treatment Not on file Procedures Procedure Name Priority Date/Time Associated Diagnosis Comments HCV AB SCRN W/REFLEX TO HCV PCR, S Routine 09/04/2022 from Last 3 Months or Most Recently Relevant to Health Maintenance Results * HCV Ab Scrn w/Reflex to HCV PCR, Serum (09/04/2022) EXT HCV Ab, S Negative Negative, None detected EXTERNAL INTER[facility]ED LAB Blood (Blood, Venous) 09/04/2022 us Ordering Provider External M.D. LAB MICR OBIOLOGY - BLOOD ORDERABLES Edited Result - Final [facility] LAB [address] [place] [address] from Last 3 Months or Most Recently Relevant to Health Maintenance Insurance [employer] Advance Directives For more information, please contact: [phone] * Full Code (Latest Code Status on File) Date Activated Date Inactivated Comments 06/16/2023 10:32 AM 06/16/2023 12:59 PM Question Answer Comments Full Code: Discussed * Full Code Date Activated Date Inactivated Comments 06/16/2023 8:09 AM 06/16/2023 10:32 AM Question Answer Comments Full Code: Discussed Care Teams Engraved Roller Inspector Relationship Specialty Start Date End Date None Reported, Pcp PCP - General Family Medicine 06/16/23
--- OUTSIDE RECORDS SUMMARY | 2024-04-07 11:16 | XMS_ITS | Clinical Summary ---
Author Organization [facility] Address [address] [place] [address] Care Team Providers Care Shrimp Header Name Role Phone None Reported, Pcp Primary Care Provider Unavail able Source Comments Patient records contain information from all sites at [facility]. For routine questions regarding patient records, call [phone] during business hours, M-F 8:00 AM - 5:00 PM Central Time. Record requests for emergency care only can be directed to [phone] at any time.[facility] Allergies Active Allergy Reactions Criticality Noted Date Comments Pollen Extracts Cough 02/19/2023 Medications vit calc,iron,folic (PRENAT.VITS,DONNIE ,[id number] ORAL) Take 1 tablet by mouth. 09/18/2022 [...] Date Recurrent Loss Not Currently 04/12/2023 12/24/2023 Family History Medical History Relation Name Comments [...] your living situation today? 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 Last Filed Vital Signs Vital Sign Reading Time Taken Comments Blood Pressure 85/56 12/24/2023 12:09 PM CDT Pulse 73 12/24/2023 12:09 PM CDT Temperature 36.6 C (97.9 F) 06/16/2023 8:56 AM ACOUSTIC SENSOR OPERATOR Respiratory Rate 15 06/16/2023 10:2 2 AM ACOUSTIC SENSOR OPERATOR Oxygen Saturation 97% 12/24/2023 12: 09 PM CDT Inhaled Oxygen Concentration - - Weight 67.1 kg (147 lb 14.9 oz) 024 12:09 PM CDT Height 150 cm (4' 11.06) 07/08/2023 2:27 PM ACOUSTIC SENSOR OPERATOR Body Mass Index 29.82 07/08/2023 2:27 PM ACOUSTIC SENSOR OPERATOR Plan of Treatment Health Maintenance Due Date Last Done Comments Cervical/Vaginal Cancer Screening 1985 HIV Screening 1985 Pneumococcal vaccine (0-64 years) (1 of 2 - PCV) 1991 Hepatitis B Vaccines (1 of 3 - 19+ 3-dose series) 2004 Depression Screening (Annual PHQ-2) 05/17/2023 COVID-19 Vaccine (2023- season) 2024 03/02/2023, 03/17/2022, 06/12/2021, Additional history [...] Result - Final EXTERNAL INTERFACED LAB [address] [place] [address] from Last 3 Months or Most Recently Relevant to Health Maintenance [facility] [place] [id number] Advance Directives For more information, please contact: [phone] * Full Code (Latest Code Status on File) Date Activated Date Inactivated Comments 06/16/2023 10:32 AM 06/16/2023 12:59 PM Question Answer Comments Full Code: Discussed * Full Code Date Activated Date Inactivated Comments 06/16/2023 8:09 AM 06/16/2023 10:32 AM Question Answer Comments Full Code: Discussed Care Teams Shrimp Header Relationship Specialty Start Date End Date None Reported, Pcp PCP - General Family Medicine 06/16/23
--- NOTE | 2024-04-07 12:36 | P.LACF_ITS ---
Follow-Up Note: Mom Date of visit Date of visit: 04/07/24 Reason for consultation: Breast/Nipple Issue (mom with new onset RIGHT nipple pain; also wondering if she can increase her supply on her right side, and side-lying nursing position) Visit Code: Visit Patient's Information Allergies No Known Drug Allergies Allergy (Verified 04/07/24 10:39) Current Frequency of Day Feedings: every 1.5-3 hours Frequency of Night Feedings: same Both Breasts: Yes (offered, sometimes just nurses on 1 side) Suck: strong Latch: ok on the left side, hurts on the right Length of Time: 10-15min onthe 1st side, 5-10 on the 2nd if he latches Pumping Pumping: Yes (2-3 times/day) Quantity Pumped: RIGHT ~40ml; LEFT 60-70ml Supplementing EBM Supplement: Yes (1-2 x/day) Formula Supplement: Yes (occas 1 bottle/day) Baby Elimination Number of Wet Diapers a Day: ea feeding Number of BM a Day: 1-3/day; mostly yellow, occas green tinge Breast/Nipple Assessment Breast/Nipple Assessment: Breasts are assymetrical ((LEFT SLIGHTLY LARGER THAN RIGHT) with rounded lower quadrants, intramammary distance is less than 1.5 inches. No erythema. Nipples are supple, everted prior to feeding. RIGHT nipple with 2mm white spot from healing milk bleb (mom says it's much better today than yesterday). Mom describes her right breast as feeling lumpy; better than yesterday but wants to know what to do to continue the healing process. Mom describes right nipple as white after , not so much with pumping; painful. We discussed this on the phone yesterday and she tried the recommendation of heat and said that does help. This is not happening on her left breast. When pumping-has both a Spectra and a portable Medela pump. She is still working on the settings for the portable pump for comfort. Breast Shape: Round Engorgement: No Maternal Nipple Condition - Left: Common Nipple Maternal Nipple Condition - Right: Common Nipple Sore Nipples: Yes (right) Assessments/Interventions Assessments/Interventions: Combination of plugged ducts/nipple bleb on right breast with underlying nipple vasospasm. For plugged ducts - continue with gentle massage while nursing/pumping, breast lymphatic drainage for swelling, cool packs after nursing to decrease breast congestion For nipple vasospasm - heat after or pumping to increase blood spencer w; heating pad warming while nursing can be helpful. overall need to correct his latch. Discussed getting baby on deeper so nipple is compressed between his tongue and soft palate vs his hard palate (which is likely given the vasospasm). Can return to clinic for latch evaluation if symptoms persist. Also measured for flange size: currently using a size 24mm flange when pumping; nipples are RIGHT 18mm, LEFT 17mm so recommend a 20-22mm flange size. Discussed how flange size that is too small or too large can add to nipple pain and vasospasm. Also discussed pump settings and not pumping too vigorously to irritate nipple, especially while it is healing/calming. Discussed side lying nursing position as mom would like to try and do this more often; reviewed techniques and strategies to attempt. To increase supply on right side, options mom could try are to pump right side an extra 1-2 times/day-although discussed need to continue to do so regularly so as not to increase risk of plugged ducts. When , could try starting on her right side 2 times for every 1 time she starts on her left. Again discussed any time the feeding/pumping pattern is changed, need to be aware of comfort and milk drainage on both breasts so as not to upset the natural supply/demand nature of /breastmilk production. Follow-Up Suggested follow up: Appointment as needed Time Spent Time spent with patient (min): 60 Meds Home Medications and Allergies Allergies Allergy/AdvReac Type Severity Reaction Status Date / Time No Known Drug Allergies Allergy Verified 04/07/24 10:39
== END 2024-04-07 11:14 | disposition home or self-care (01) ==
LOC: OB LAC 11:13
PROVIDERS: PCP Registered Nurse; Visit Provider Obstetrics & Gynecology
DX: Z39.1 Encounter for care and examination of lactating mother (principal)
CPT/HCPCS: G0463

== ENCOUNTER 2024-04-12 08:42 | Outpatient (CLI) | payer OTHER, SELFPAY ==
--- OUTSIDE RECORDS SUMMARY | 2024-04-12 11:26 | XMS_ITS | Referral Summary ---
Author Organization [facility] Address [address] [place] [address] Care Team Providers Care Science Editor Name Role Phone None Reported, Pcp Primary Care Provider Unavail able Source Comments Patient records contain information from all sites at [facility]. For routine questions regarding patient records, call [phone] during business hours, M-F 8:00 AM - 5:00 PM Central Time. Record requests for emergency care only can be directed to [phone] at any time.[facility] Allergies Active Allergy Reactions Criticality Noted Date Comments Pollen Extracts Cough 02/19/2023 Medications vit calc,iron,folic (PRENAT.VITS,DONNIE ,[id number] ORAL) Take 1 tablet by mouth. 09/18/2022 [...] your living situation today? 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 Last Filed Vital Signs Vital Sign Reading Time Taken Comments Blood Pressure 85/56 12/24/2023 12:09 PM CDT Pulse 73 12/24/2023 12:09 PM CDT Temperature 36.6 C (97.9 F) 06/16/2023 8:56 AM WEAPONS ENGINEER Respiratory Rate 15 06/16/2023 10:2 2 AM WEAPONS ENGINEER Oxygen Saturation 97% 12/24/2023 12: 09 PM CDT Inhaled Oxygen Concentration - - Weight 67.1 kg (147 lb 14.9 oz) 024 12:09 PM CDT Height 150 cm (4' 11.06) 07/08/2023 2:27 PM WEAPONS ENGINEER Body Mass Index 29.82 07/08/2023 2:27 PM WEAPONS ENGINEER Plan of Treatment Not on file Procedures [...] Edited Result - Final EXTERNAL INTERFACED LAB [address] [place] [address] from Last 3 Months or Most Recently Relevant to Health Maintenance Insurance [employer] Advance Directives For more information, please contact: [phone] * Full Code (Latest Code Status on File) Date Activated Date Inactivated Comments 06/16/2023 10:32 AM 06/16/2023 12:59 PM Question Answer Comments Full Code: Discussed * Full Code Date Activated Date Inactivated Comments 06/16/2023 8:09 AM 06/16/2023 10:32 AM Question Answer Comments Full Code: Discussed Care Teams Science Editor Relationship Specialty Start Date End Date None Reported, Pcp PCP - General Family Medicine 06/16/23
--- OUTSIDE RECORDS SUMMARY | 2024-04-12 11:26 | XMS_ITS | Clinical Summary ---
Author Organization [employer] [facility] Address [place], [place] [address] Care Team Providers Care Machinery Erector Name Role Phone [facility] Unavailable Mervat Anthony DO Primary Care Provider [phone] Allergies No known active allergies Medications No [...] Positive HBSAG Negative HEPCABY Non Reactive Comment [id number] Non Reactive No Known Allergies OB History [...] Department Care Team Description 03/30/2024 Orders Only [facility] Scanner 1 scan: (1-Ord) SYED, MULTIPLE LAB REPORTS, 03/30/2024 03/02/2024 Lab Requisition [facility] [phone] Janie Ceballos MD from Last 3 Months [...] 36.8 C (98.3 F) 05/25/2017 9:31 AM RESPOOLER Respiratory Rate - - Oxygen Saturation 100% [...] Diagnosis Comments SCAN-LABORATORY REPORT 03/30/2024 12:00 AM RESPOOLER LAB TRACKING EVENT Routine 03/01/2024 7: 06 [...] Results * SCAN-LABORATORY REPORT (03/30/2024 12:00 AM RESPOOLER) Scanner OTHER * LAB TRACKING EVENT (03/01/2024 7:06 PM CDT) Other (Other) Client Collect / Unknown 03/01/2024 7:06 PM CDT 03/02/2024 10:14 PM CDT Janie Ceballos MD LAB BILL ONLY [facility] [address] [place] [address], * PATH TISSUE EXAM PLACENTA (03/01/2024 7:06 PM CDT) Case Report Pathology Report Case: [id number] Authorizing Provider: Janie Ceballos MD Collected: 03/01/2024 1906 Ordering Location: [facility] Received: 03/03/2024 0756 Pathologist: Alma Carvlaho MD Specimen: Placenta 03/06/2024 11:[facility] Final Diagnosis [...] No diagnostic abnormalities identified 03/06/2024 11:28 AM [facility] Comment Acute subchorionitis/cho rioamnionitis is [...] features are not seen. 03/06/2024 11:28 AM [facility] LABORATORY-C ENTRAL LABORATORY Clinical Information Indications for [...] No Smoking: No 03/06/2024 11:28 AM [facility] LABORAT[facility]-C ENTRAL LABORATORY Gross Description A) Received [...] discrete lesion or mass is identified grossly. Drilling Machine Runner sections are submitted: 1. membranes and insertion 2. Umbilical cord 3-5. Placental disc full-thickness sections with apparent calcifications Time and date in formalin: 12: 26 on 03/03/2024 DOUG 03/03/2024 03/06/2024 11:28 AM [facility] LABORAT[facility]-C ENTRAL LABORATORY Microscopic Description The final [...] Dev Pathol 2003;6(5):435-8 03/06/2024 11:28 AM CDT [facility] ENTRAL LABORATORY Additional Information Interpreted at [facility], Central Laboratory - [address] [place] [address] [address] [address] 03/06/2024 11:28 AM CDT [facility] ENTRAL LABORATORY Tissue SPECIMEN FROM PLACENTA / Unknown 03/01/2024 7:06 PM CDT 03/03/2024 7:56 AM CDT Janie Ceballos MD PATHOLOGY/CYTOLOGY Performing Organization Address City/[facility]/ZIP Co de Phone Number [facility]-C[facility]AL LABORATORY [address] [place] [address], [place] * HCV ANTIBODY RFX TO QUANT PCR (09/04/2022 11:25 AM CDT) HCV Ab Non Reactive Non Reactive 09/08/2022 5:12 AM CDT [facility] Blood BLOOD SPECIMEN / Unknown Venipuncture / Unknown 09/04/2022 11:25 AM CDT 09/04/2022 11:27 AM CDT Narrative [facility] ([facility]) - 09/08/2022 5:12 AM CDT Performed at: [address] [place] [address] [place] [id number] Senior Program Analyst: Daivd Dumont MD, Phone: [phone] Karol Arellano MD LABORATORY [facility] ([facility]) [address] [place] [address], * LC HIV-1/O/2, 4TH GENERATION (09/04/2022 11:25 AM CDT) HIV Scr 4th Gen Non Reactive Non Reactive 09/08/2022 6:09 AM CDT [facility] ([facility]) Comment: HIV Negative HIV-1/HIV-2 antibodies and HIV-1 p24 antigen were NOT detected. There is no laboratory evidence of HIV infection. Blood BLOOD SPECIMEN / Unknown Venipuncture / Unknown 09/04/2022 11:25 AM CDT 09/04/2022 11:27 AM CDT Narrative [facility] ([facility]) - 09/08/2022 6:09 AM CDT Performed at: [address] [place] [id number] Senior Program Analyst: David Dumont MD, Phone: [phone] Karol Arellano MD LABORATORY Performing Organization Address City/[facility]/[employer]UST Co de Phone Number [facility] ([facility]) [address] [place] [address] * HPV HIGH RISK (03/19/2021 4:20 PM CDT) Pathologist [facility] TYPE 16 Negative Negative 03/25/2021 6:14 AM RESPOOLER [facility] TRAL LABORATORY TYPE 18 Negative Negative 03/25/2021 6:14 AM RESPOOLER [facility] TRAL LABORATORY OTHER HIGH RISK TYPES Negative Negative 03/25/2021 6:14 AM RESPOOLER [facility] TRAL LABORATORY Other (Cervical) Non-Blood / Unknown 03/19/2021 4:20 PM CDT 03/21/2021 11:42 AM CDT Narrative [facility]-CENTRAL LABORATORY - 03/25/2021 6:14 AM RESPOOLER HPV types 16, 18, 31, 33, 35, 39, 45, 51, 52, 56, 58, 59, 66 and 68 DNA were undetectable or below the pre-set threshold. Methodology: Shahrzad Soila 4800 HPV Test Tawanna Bates MD MICROBIOLOGY [facility]-C[facility]TRAL LABORATORY [address] [place] [address], [place] from Last 3 Months or Most Recently Relevant to Health Maintenance Care Teams Machinery Erector Relationship Specialty Start Date End Date Mervat Anthony DO [address] [place] [address] PCP - General Family Practice 02/24/23 Clinic, [facility] [address] [place] [address] 09/16/22
--- OUTSIDE RECORDS SUMMARY | 2024-04-12 11:26 | XMS_ITS ---
Author Organization [facility] Address [address] [place] [address] Care Team Providers Care Box Maker Name Role Phone Unavailable Unavailable Unavailable Surgery Details Not on file Complications Check Surgery Details section. Procedure Estimated Blood Loss Check Surgery Details section. Procedure Findings Check Surgery Details section. Procedure Specimens Taken Check Surgery Details section.
--- OUTSIDE RECORDS SUMMARY | 2024-04-12 11:26 | XMS_ITS | Clinical Summary ---
Author Organization [facility] Address [address] [place] [id number] Care Team Providers Care Electro Winning Operator Name Role Phone None Reported, Pcp Primary Care Provider Unavail able Source Comments Patient records contain information from all sites at [facility]. For routine questions regarding patient records, call [phone] during business hours, M-F 8:00 AM - 5:00 PM Central Time. Record requests for emergency care only can be directed to [phone] at any time.[facility] Allergies Active Allergy Reactions Criticality Noted Date Comments Pollen Extracts Cough 02/19/2023 Medications vit calc,iron,folic (PRENAT.VITS,DONNIE ,[id number] ORAL) Take 1 tablet by mouth. 09/18/2022 [...] your living situation today? I have a [facility] place to live 02/17/2023 Education [...] 36.6 C (97.9 F) 06/16/2023 8:56 AM NUMERICAL CONTROL PROGRAMMER Respiratory Rate 15 06/16/2023 10:2 2 AM NUMERICAL CONTROL PROGRAMMER Oxygen Saturation 97% 12/24/2023 12: 09 PM CDT Inhaled Oxygen Concentration - - Weight 67.1 kg (147 lb 14.9 oz) 024 12:09 PM CDT Height 150 cm (4' 11.06) 07/08/2023 2:27 PM NUMERICAL CONTROL PROGRAMMER Body Mass Index 29.82 07/08/2023 2:27 PM NUMERICAL CONTROL PROGRAMMER Plan of Treatment Health Maintenance Due Date [...] Result - Final [facility] [address] [place] [address] from Last 3 Months or Most Recently Relevant to Health Maintenance [facility] Advance Directives For more information, please contact: [phone] * Full Code (Latest Code Status on File) Date Activated Date Inactivated Comments 06/16/2023 10:32 AM 06/16/2023 12:59 PM Question Answer Comments Full Code: Discussed * Full Code Date Activated Date Inactivated Comments 06/16/2023 8:09 AM 06/16/2023 10:32 AM Question Answer Comments Full Code: Discussed Care Teams Electro Winning Operator Relationship Specialty Start Date End Date None Reported, Pcp PCP - General Family Medicine 06/16/23
== END 2024-04-12 08:43 | disposition home or self-care (01) ==
LOC: NFLDREF 11:25
PROVIDERS: PCP Registered Nurse; Referring Provider Registered Nurse; Visit Provider Registered Nurse
DX: R73.03 Prediabetes (principal); D62 Acute posthemorrhagic anemia; Z39.2 Encounter for routine postpartum follow-up
CPT/HCPCS: 80053; 80061

== ENCOUNTER 2025-03-23 09:55 | Outpatient (CLI) | payer BC, SELFPAY | END 2025-03-23 09:56 | disposition home or self-care (01) | LOC: NFLDREF 03-28 08:45 | PROVIDERS: PCP Family Medicine; Referring Provider Family Medicine; Visit Provider Obstetrics & Gynecology | DX: Z00.00 Encounter for general adult medical examination without abnormal findings (principal) | CPT/HCPCS: 80061 ==

== ENCOUNTER 2025-05-15 09:21 | Outpatient (CLI) | payer BC, SELFPAY ==
[2025-05-15 11:43] LABS: HIV 1/2/P24 Combo Screen* Negative (Negative)
[2025-05-15 11:49] LABS: Hepatitis B Surface Antigen* Negative (Negative)
[2025-05-15 12:06] LABS: Hepatitis C Virus Antibody* Negative (Negative)
[2025-05-16 23:16] LABS: Estradiol Premenol Female 28.9 pg/mL
[2025-05-17 17:31] LABS: Follicle Stimulating Hormone 6.9 IU/L
== END 2025-05-15 09:22 | disposition home or self-care (01) ==
LOC: NPINS 09:23
PROVIDERS: PCP Family Medicine; Visit Provider Obstetrics & Gynecology
DX: Z31.69 Encounter for other general counseling and advice on procreation (principal)
CPT/HCPCS: 82670; 83001; 83520; 84443; 86703; 86803; 87340